=== PATIENT | male | born 1975 | race Hispanic/Latino ===

== ENCOUNTER 2016-12-11 15:29 | Inpatient (IN) | payer MEDICAID ==
--- NOTE | 2016-12-11 15:53 | ED PDOC ---
Arrival/HPI - General Chief Complaint: Abdominal Pain Time Seen by Provider: 12/11/16 15:35 Historian: Patient, EMS - History of Present Illness Narrative History of Present Illness (Text): 12/11/16 16:31 Patient is a 41 yo male states that he has had abdominal pain "for two weeks" as well as "i've just been laying in bed for two weeks". He states that "I'm an alcoholic" but reports "I feel like st" although he has not more specific with his symptoms. Patient denies any chest pain or shortness of breath. States that he "gets up and takes a walk" and he denies any lightheadedness or dizziness. Denies dark or bloody stool. Reports "throwing up blue bile" "once in a while". Currently denies nausea. Time/Duration: > week Symptom Onset: Gradual Past Medical History - Infectious Disease Hx of Infectious Diseases: None - Gastrointestinal Hx Hemorrhoids: Yes - Psychiatric Hx Substance Use: No - Anesthesia Hx Anesthesia: No Family/Social History Family/Social History: Unknown Family HX Smoking Status: Light Smoker < 10 Cigarettes Daily Hx Alcohol Use: Yes Hx Substance Use: No Allergies/Home Meds Allergies/Adverse Reactions: Allergies No Known Allergies Allergy (Verified 10/16/16 10:36) Home Medications: Home Meds Medication Instructions Recorded Confirmed No Known Home Med 12/11/16 12/11/16 Review of Systems - Review of Systems Systems not reviewed;Unavailable: Intoxicated Constitutional: Fatigue. absent: Fevers Eyes: absent: Vision Changes Respiratory: absent: SOB Cardiovascular: absent: Chest Pain Gastrointestinal: Abdominal Pain, Nausea, Vomiting, Appetite Changes. absent: Constipation, Diarrhea, Hematochezia, Hematemesis Genitourinary Male: absent: Dysuria, Frequency Musculoskeletal: Myalgias. absent: Back Pain Skin: absent: Rash Neurological: Dizziness. absent: Headache, Focal Weakness Endocrine: absent: Polyuria Hemo/Lymphatic: absent: Easy Bleeding Psychiatric: absent: Depression, Suicidal Ideation Physical Exam - Physical Exam Narrative Physical Exam (Text): Head: Atraumatic. Normocephalic. Eyes: PERRL. EOMI. Conjunctivae are not pale. ENT: Mucous membranes are moist and intact. Oropharynx is clear and symmetric. Neck: Supple. Full ROM. No JVD. No lymphadenopathy. Cardiovascular: Regular rate. Regular rhythm. Systolic murmur. Pulmonary/Chest: No evidence of respiratory distress. Clear to auscultation bilaterally. No wheezing, rales or rhonchi. Abdominal: Hepatomegaly. Diffuse upper abdominal discomfort, no rebound or guarding. Rectal: patient refused, denies gross blood Back: No CVA tenderness. Extremities: No edema. No cyanosis. No clubbing. Full range of motion in all extremities. No calf tenderness. Skin: Skin is warm and dry. No petechiae. No purpura. Neurological: Alert, awake, and oriented to person, place, time, and situation. No facial droop. Mild slurred speech. NO focal weakness. NO gait instability. Hyperreflexive and tremulous on re-evaluation. Psychiatric: He denies hallucinations. He denies depression or suicidal ideation. Vital Signs Reviewed: Yes Vital Signs Temp Pulse Resp BP Pulse Ox 12/11/16 20:20 87 17 145/81 98 12/11/16 18:50 86 18 146/82 98 12/11/16 16:24 99 H 18 148/96 H 98 12/11/16 15:38 98.3 F 108 H 18 154/104 H 98 Temperature: Afebrile Pulse: Regular Mental Status: Positive for: other (appears intoxicated but is alert and oriented) Medical Decision Making ED Course and Treatment: 12/11/16 22:46 Patient is a 41 yo male past medical history of alcohol abuse, states he has had prior AA involvement as well as rehab visits. He reports abdominal pain and is noted to have diffuse tenderness but no rebound or guarding. Rectal refused by patient, risks discussed, although patient is noted to have no bloody stool currently. Patient given iv fluids, serial exams reveal persistent pain ct ordered and reviewed. Labs suggestive of pancreatitis, ct possible colitis. He is afebrile. With serial exams he has become shaky and tremulous. Librium ordered and will admit to telemetry for alcohol withdrawal serial abdominal exams. Patient currently denies any suicidal or homicidal ideation. No vomiting noted in ED, no hematemesis. no chest pain or sob. Will admit to hospitalist service, case d/w Dr Hood accepts for hospitalist. - Lab Interpretations Lab Results: 12/11/16 16:36 12/11/16 16:36 Lab Results 12/11/16 16:48: POC Glucose (mg/dL) 99 12/11/16 16:36: WBC 4.6, RBC 4.11, Hgb 13.8 L, Hct 39.1 L, MCV 95.1, MCH 33.6, MCHC 35.3, RDW 13.1, Plt Count 249, MPV 8.5, Gran % 36.3 L, Lymph % (Auto) 45.3 H, [facility] % (Auto) 14.1 H, Eos % (Auto) 2.8, Baso % (Auto) 1.5, Gran # 1.67, Lymph # 2.1, [facility] # 0.7 H, Eos # 0.1, Baso # 0.07, PT 10.7, INR 0.99, APTT 26.3 , Sodium 149 H, Potassium 3.3 L, Chloride 102, Carbon Dioxide 28, Anion Gap 22 H , BUN 7, Creatinine 0.6, Est GFR ( Amer) > 60, Est GFR (Non-Af Amer) > 60 , Random Glucose 98, Calcium 8.9, Magnesium 1.7, Total Bilirubin 0.5, AST 69 H, ALT 48, Alkaline Phosphatase 82, Lactate Dehydrogenase 572, Total Creatine Kinase 111, Troponin I < 0.01, NT-Pro-B Natriuret Pep 39.1, Total Protein 7.5, Albumin 4.1, Globulin 3.4, Albumin/Globulin Ratio 1.2, Amylase 246 H, Lipase 563 H, Urine Color Yellow, Urine Appearance Clear, Urine pH 6.5, Ur Specific [place] <= 1.005, Urine Protein Negative, Urine Glucose (UA) Negative, Urine Ketones Negative, Urine Blood Negative, Urine Nitrate Negative, Urine Bilirubin Negative, Urine Urobilinogen 0.2, Ur Leukocyte Esterase Negative, Salicylates < 1 L, Urine Opiates Screen Negative, Urine Methadone Screen Negative, Acetaminophen < 10.0 L, Ur Barbiturates Screen Negative, Ur Phencyclidine Scrn Negative, Ur Amphetamines Screen Negative, U Benzodiazepines Scrn Negative, U Oth Cocaine Metabols Negative, U Cannabinoids Screen Negative, Alcohol, Quantitative 426 H* I have reviewed the lab results: Yes - RAD Interpretation Radiology Orders: 12/11/16 16:29 CHEST PORTABLE [RAD] Stat 12/11/16 20:04 ABD & PELVIS W/O PO OR IV CONT [CT] Stat Clinical Application Manager: Radiologist - EKG Interpretation Interpreted by ED Physician: Yes Type: 12 lead EKG - Medication Orders Current Medication Orders: Chlordiazepoxide (Librium) 25 mg PO Q8 PAIGE PRN Reason: Protocol Last Admin: 12/14/16 06:04 Dose: 25 MG Behavioural Document 12/14/16 06:04 KTR (Rec: 12/14/16 06:04 KTR [facility] [place]-2RS-[id number]) Maintenance Maintenance Dose Yes Nonmedicinal Nonmedicinal Interventions Activity Give food/fluids Behavior Behavior for Medication: Anxiety Continuous pacing/restlessness Re-Assess: Reassess Psych Meds Document 12/14/16 07:04 SPA (Rec: 12/14/16 08:50 SPA [facility] [place]-[id number]) Reassess Psych Med Effective Enoxaparin Sodium (Lovenox) 40 mg SC DAILY [facility] PRN Reason: Protocol Last Admin: 12/14/16 09:01 Dose: Not Given Non-Admin Reason: Patient Refused Folic Acid (Folic Acid) 1 mg PO DAILY [facility] Last Admin: 12/14/16 08:57 Dose: 1 MG Lorazepam (Ativan) 2 mg IVP Q3 PRN; Protocol PRN Reason: Agitation Last Admin: 12/13/16 23:21 Dose: 2 MG Behavioural Document 12/13/16 23:21 KTR (Rec: 12/13/16 23:21 KTR [facility] [place]-03) Maintenance Maintenance Dose No Nonmedicinal Nonmedicinal Interventions Activity Behavior Behavior for Medication: Anxiety IVP Administration Document 12/13/16 23:21 KTR (Rec: 12/13/16 23:21 KTR [facility] [place]-03) Charges for Administration # of IVP Administrations 1 Re-Assess: Reassess Psych Meds Document 12/13/16 23:51 KTR (Rec: 12/14/16 04:[address]-03) Reassess Psych Med Effective Multivitamins (Thera Tab) 1 tab PO DAILY [facility] Last Admin: 12/14/16 08:57 Dose: 1 TAB Nicotine (Nicoderm Cq) 1 patch TD DAILY [facility] Last Admin: 12/14/16 08:56 Dose: 1 PATCH MAR Patch Placement/Removal Document 12/14/16 08:56 SPA (Rec: 12/14/16 08:56 SPA [facility] [place]-[id number]) Patch Removal Removal of previous patch done Yes Patch Placement Left, Right or Bilateral Left Pain Location Body Site Shoulder Ondansetron HCl (Zofran Inj) 4 mg IVP Q4H PRN PRN Reason: Nausea/Vomiting Last Admin: 12/12/16 07:08 Dose: 4 MG IVP Administration Document 12/12/16 07:08 AP (Rec: 12/12/16 07:08 AP [id number]) Charges for Administration # of IVP Administrations 1 Pantoprazole Sodium (Protonix Ec Tab) 40 mg PO 0630 [facility] Last Admin: 12/14/16 06:04 Dose: 40 MG Thiamine HCl (Vitamin B1 Tab) 100 mg PO DAILY PAIGE Last Admin: 12/14/16 08:57 Dose: 100 MG Discontinued Medications Chlordiazepoxide (Librium) 50 mg PO STAT STA PRN Reason: Protocol Stop: 12/11/16 17:05 Last Admin: 12/11/16 17:54 Dose: 50 MG Behavioural Document 12/11/16 17:54 HI (Rec: 12/11/16 17:54 HI [id number]) Maintenance Maintenance Dose No Nonmedicinal Nonmedicinal Interventions Redirect Therapeutic Communication Behavior Behavior for Medication: Anxiety Chlordiazepoxide (Librium) 50 mg PO STAT STA PRN Reason: Protocol Stop: 12/11/16 21:50 Last Admin: 12/11/16 22:32 Dose: 50 MG Behavioural Document 12/11/16 22:32 HI (Rec: 12/11/16 22:32 HI [id number]) Maintenance Maintenance Dose Yes Nonmedicinal Nonmedicinal Interventions Therapeutic Communication Behavior Behavior for Medication: Anxiety Re-Assess: Reassess Psych Meds Document 12/12/16 00:47 AP (Rec: 12/12/16 00:47 AP [id number]) Reassess Psych Med Effective Chlordiazepoxide (Librium) 50 mg PO Q8 PAIGE PRN Reason: Protocol Last Admin: 12/13/16 13:23 Dose: 50 MG Behavioural Document 12/13/16 13:23 SPA (Rec: 12/13/16 13:23 SPA [id number]) Maintenance Maintenance Dose No Nonmedicinal Nonmedicinal Interventions Therapeutic Communication Behavior Behavior for Medication: Anxiety Re-Assess: Reassess Psych Meds Document 12/13/16 14:23 SPA (Rec: 12/13/16 15:00 [id number] Reassess Psych Med Effective Famotidine (Pepcid) 20 mg IVP STAT STA Stop: 12/11/16 16:31 Last Admin: 12/11/16 16:53 Dose: 20 MG IVP Administration Document 12/11/16 16:53 SF (Rec: 12/11/16 16:53 [facility] [place] [facility] Charges for Administration # of IVP Administrations 1 Sodium Chloride (Sodium Chloride 0.9%) 1,000 mls @ 1,000 mls/hr IV .Q1H STA Stop: 12/11/16 17:29 Last Admin: 12/11/16 16:43 Dose: 1,000 MLS/HR eMAR Start Stop Document 12/11/16 16:43 SF (Rec: 12/11/16 16:53 [facility] Intravenous Solution Start Date 12/11/16 Start Time 16:43 End Date 12/11/16 End time 17:43 Total Infusion Time 60 Multivitamins/Vitamin C 10 ml/Thiamine HCl 100 mg/ Folic Acid 1 mg/ Sodium Chloride 1,011.2 mls @ 1,000 mls/hr IV .Q1H1M ONE Stop: 12/11/16 21:26 Last Admin: 12/11/16 21:38 Dose: 1,000 MLS/HR eMAR Start Stop Document 12/11/16 21:38 SF (Rec: 12/11/16 21:39 SF [facility] Intravenous Solution Start Date 12/11/16 Start Time 21:35 End Date 12/11/16 End time 22:35 Total Infusion Time 60 Metronidazole (Flagyl) 100 mls @ 100 mls/hr IVPB Q8 PAIGE PRN Reason: Protocol Last Admin: 12/13/16 13:21 Dose: 100 MLS/HR eMAR Start Stop Document 12/13/16 13:21 SPA (Rec: 12/13/16 13:22 SPA [id number]) Intravenous Solution Start Date 12/13/16 Start Time 13:22 End Date 12/13/16 End time 14:22 Total Infusion Time 60 Multivitamins/Vitamin C 10 ml/Thiamine HCl 100 mg/ Folic Acid 1 mg/ Potassium Chloride 40 meq/ Sodium Chloride 1,031.2 mls @ 1,000 mls/hr IV .Q1H2M ONE Stop: 12/12/16 11:27 Multivitamins/Vitamin C 10 ml/Thiamine HCl 100 mg/ Folic Acid 1 mg/ Potassium Chloride 40 meq/ Sodium Chloride 1,031.2 mls @ 100 mls/hr IV .[id number] ONE Stop: 12/12/16 20:44 Last Admin: 12/12/16 12:21 Dose: 100 MLS/HR eMAR Start Stop Document 12/12/16 12:21 JZA (Rec: 12/12/16 12:22 JZA [id number]) Intravenous Solution Start Date 12/12/16 Start Time 12:21 Ceftriaxone Sodium (Rocephin 1 Gram Ivpb) 100 mls @ 100 mls/hr IVPB DAILY [facility]IGE PRN Reason: Protocol Last Admin: 12/13/16 09:36 Dose: 100 MLS/HR eMAR Start Stop Document 12/13/16 09:36 SPA (Rec: 12/13/16 09:36 SPA [id number]) Intravenous Solution Start Date 12/13/16 Start Time 09:36 End Date 12/13/16 End time 10:36 Total Infusion Time 60 Multivitamins/Vitamin C 10 ml/Thiamine HCl 100 mg/ Folic Acid 1 mg/ Sodium Chloride 1,011.2 mls @ 100 mls/hr IV .Q10H7M [facility] Last Admin: 12/13/16 10:59 Dose: 100 MLS/HR eMAR Start Stop Document 12/13/16 10:59 SPA (Rec: 12/13/16 10:59 SPA [id number]) Intravenous Solution Start Date 12/13/16 Start Time 10:59 Ibuprofen (Motrin Tab) 600 mg PO STAT STA Stop: 12/14/16 09:55 Last Admin: 12/14/16 10:10 Dose: 600 MG MAR Pain/Vitals Document 12/14/16 10:10 SPA (Rec: 12/14/16 10:11 SPA [facility] [place]-[id number]) Pain Reassessment Is This A Pain ReAssessment? No Sleep Is patient sleeping during reassessment? 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 Acute Intensity 6 Scale Used Numeric Site Observation wnl Pain Behavior Restlessness Lorazepam (Ativan) 2 mg IVP Q4 PRN; Protocol PRN Reason: Agitation Last Admin: 12/12/16 08:15 Dose: 2 MG Behavioural Document 12/12/16 08:15 JZA (Rec: 12/12/16 08:16 [place] [id number]) Maintenance Maintenance Dose Yes Behavior Behavior for Medication: Anxiety IVP Administration Document 12/12/16 08:15 JZA (Rec: 12/12/16 08:16 [place] [id number]) Charges for Administration # of IVP Administrations 1 Re-Assess: Reassess Psych Meds Document 12/12/16 08:45 JZA (Rec: 12/12/16 10:12 [place] [id number]) Reassess Psych Med Effective Lorazepam (Ativan) 1 mg IVP ONCE ONE PRN Reason: Protocol Stop: 12/12/16 10:28 Last Admin: 12/12/16 10:34 Dose: 1 MG Behavioural Document 12/12/16 10:34 JZA (Rec: 12/12/16 10:34 [place] [id number]) Maintenance Maintenance Dose Yes Behavior Behavior for Medication: Dangers to self/others Behavior Comment vomit tremors IVP Administration Document 12/12/16 10:34 JZA (Rec: 12/12/16 10:34 [place] [id number]) Charges for Administration # of IVP Administrations 1 Re-Assess: Reassess Psych Meds Document 12/12/16 11:04 JZA (Rec: 12/12/16 12:22 [place] [id number]) Reassess Psych Med Effective Nicotine (Nicoderm Cq) 1 patch TD STAT STA Stop: 12/12/16 00:37 Last Admin: 12/12/16 00:44 Dose: 1 PATCH MAR Transdermal Patch Site Document 12/12/16 00:44 AP (Rec: 12/12/16 00:44 AP [id number]) Transdermal Patch Site Transdermal Patch Site Left Outer Upper Arm Ondansetron HCl (Zofran Inj) 4 mg IVP ONCE ONE Stop: 12/12/16 10:28 Last Admin: 12/12/16 10:35 Dose: 4 MG IVP Administration Document 12/12/16 10:35 JZA (Rec: 12/12/16 10:35 [place] [id number]) Charges for Administration # of IVP Administrations 1 Potassium Chloride (K-Dur 20 Meq Er Tab) 40 meq PO STAT STA Stop: 12/11/16 17:47 Last Admin: 12/11/16 18:12 Dose: 40 MEQ Potassium Chloride (K-Dur 20 Meq Er Tab) 40 meq PO STAT STA Stop: 12/12/16 09:17 Last Admin: 12/12/16 10:17 Dose: 40 MEQ Potassium Chloride (Potassium Chloride Oral Soln) 40 meq PO ONCE ONE Stop: 12/13/16 15:53 Last Admin: 12/13/16 16:25 Dose: 40 MEQ Potassium Chloride (K-Dur 20 Meq Er Tab) 40 meq PO ONCE ONE Stop: 12/14/16 09:02 Last Admin: 12/14/16 09:25 Dose: 40 MEQ Disposition/Present on Arrival - Present on Arrival Any Indicators Present on Arrival: No History of DVT/PE: No History of Uncontrolled Diabetes: No Urinary Catheter: No History of Decub. Ulcer: No History Surgical Site Infection Following: None - Disposition Have Diagnosis and Disposition been Completed?: Yes Diagnosis: Alcohol withdrawal, Alcohol abuse, Pancreatitis, Colitis Disposition: HOSPITALIZED Disposition Time: 16:45 Patient Plan: Admission, Telemetry Patient Problems: Current Active Problems Problem Status Diagnosed Alcohol abuse Acute Alcohol withdrawal Acute Colitis Acute Pancreatitis Acute Condition: FAIR
[2016-12-11] MEDS ORDERED: Sodium Chloride 0.9% 1,000 ML IV STA (16:30)
[2016-12-11 16:50] LABS: ADD MANUAL DIFF? NO
[2016-12-11 17:00] LABS: BASO # 0.07 K/mm3 (0.0-2.0); BASO % 1.5 % (0.0-3.0); EOS # 0.1 (0.0-0.7); EOS % 2.8 % (1.5-5.0); GRAN # 1.67 (1.4-6.5); GRAN % 36.3 % (50.0-68.0); HEMATOCRIT 39.1 % (42.0-52.0); LYMPH # 2.1 (1.2-3.4); LYMPH % 45.3 % (22.0-35.0); MEAN CELL VOLUME 95.1 fL (80.0-105.0); MEAN CORPUSCULAR HEMOGLOBIN 33.6 pg (25.0-35.0); MEAN CORPUSCULAR HGB CONC 35.3 g/dl (31.0-37.0); MEAN PLATELET VOLUME 8.5 fl (7.0-11.0); MONO # 0.7 (0.1-0.6); MONO % 14.1 % (1.0-6.0); PH,URINE 6.5 (4.7-8.0); PLATELET COUNT 249 10^3/uL (120.0-450.0); RED CELL DISTRIBUTION WIDTH 13.1 % (11.5-14.5); URINE BILIRUBIN NEGATIVE (NEGATIVE); URINE BLOOD NEGATIVE (NEGATIVE); URINE GLUCOSE (UA) NEGATIVE (NEGATIVE); URINE KETONE NEGATIVE (NEGATIVE); URINE LEUKOCYTE ESTERASE NEGATIVE Leu/uL (NEGATIVE); URINE PROTEIN NEGATIVE mg/dL (<30 mg/dL); URINE UROBILINOGEN 0.2 E.U./dL (<1 E.U./dL); WHITE BLOOD COUNT 4.6 10^3/ul (4.5-11.0)
[2016-12-11 17:01] LABS: URINE APPEARANCE CLEAR (CLEAR); URINE COLOR YELLOW (YELLOW)
[2016-12-11 17:06] LABS: ALB/GLOB RATIO 1.2 (1.1-1.8); ALKALINE PHOSPHATASE 82 U/L (38-133); ALT/SGPT 48 U/L (7-56); AMYLASE 246 U/L (35-125); AST/SGOT 69 U/L (15-59); BILIRUBIN,TOTAL 0.5 mg/dL (0.2-1.3); BLOOD UREA NITROGEN 7 mg/dL (7-21); CALCIUM 8.9 mg/dL (8.4-10.5); CARBON DIOXIDE 28 mmol/L (21-33); CHLORIDE 102 mmol/L (98-107); GFR AFRICAN-AMERICAN > 60; GLUCOSE,RANDOM 98 mg/dL (70-110); LIPASE 563 U/L (23-300); MAGNESIUM 1.7 mg/dL (1.7-2.2); POTASSIUM 3.3 mmol/L (3.6-5.0); SODIUM 149 mmol/L (132-148); TOTAL PROTEIN 7.5 g/dL (5.8-8.3)
[2016-12-11 17:09] LABS: INR 0.99 (0.93-1.08); PARTIAL THROMBOPLASTIN TIME 26.3 Seconds (23.7-30.8)
[2016-12-11 17:18] LABS: TROPONIN I < 0.01 ng/mL
[2016-12-11] MEDS ORDERED: Potassium Chloride 20 mEq ER Tab PO STA (17:46)
--- NOTE | 2016-12-11 18:31 | CARD ---
APPROVED REPORT EKG Measurement Heart [id number] MI [id number] <Conclusion> Normal sinus rhythm Septal infarct, age undetermined Abnormal ECG
[2016-12-11] MEDS ORDERED: Multivitamin (MVI) 10 ML, Thiamine 100 MG, Folic Acid 1 MG in Sodium Chloride 0.9% 1,00... IV ONE (20:26)
--- NOTE | 2016-12-11 21:49 | CP.PCM.HP ---
History of Present Illness - History of Present Illness History of Present Illness: PGY-[address] Hood Admission: Abdominal pain, ETOH withdrawal 41 years old male states that he has had abdominal pain "for two weeks" with 1 diaahrea and 1 vomit episode 2 weeks ago. He claimed that he is an alcoholic and recently signed out AMA from [facility] 2 weeks ago. Then he had 1 diarrhea episode non bloody, 1 vomit episode, bilous, felt general weakness, thus "i've just been laying in bed for two weeks". His abdominal pain started RLQ and now spread to diffuse all quadrants. The pain comes and goes, since he is drinking vodka constantly so he cannot recall the duration of pain or trigger events. Patient denies any chest pain or shortness of breath. States that he "gets up and takes a walk" Pt states that he had colonoscopy 2 weeks ago which showed internal hemorroid but he felt pain during defecation all the time. (+) blood streaks on tissue paper, occassiobal bright red blood in toilet but not occasssiobnally In the ED, T 98.3, HR 108, other vitals wnl. WBC nl. Hb 13.8/MCV 95. Na 149, K 3.3. Anion Gap 22. AST 60. Amylase 246/Lipase 563. Alcohol 426 - He received 50 librium, pepcid, 1 banana bag, Kdur, 1L NS bolus - CXR no active disease - EKG - NSR 97. QTc 421 - Abdomen/Pelvic CT showed R colitis, mild sigmoid constipation ROS - Denies any lightheadedness or dizziness. Denies dark or bloody stool. Reports "throwing up blue bile" "once in a while". Currently denies nausea. Last diarrhea 2 weeks ago PMH Hemorrhoids Alcoholics PSH None Sexual History Not currently sexually active. "straight" SH Active smoker Alcohol abuse 750cc vodha a day Last snort cocaine and other drugs > 1 month ago All NKDA Med None PMD - None. Present on Admission - Present on Admission Any Indicators Present on Admission: No Past Patient History - Infectious Disease Hx of Infectious Diseases: None - Past Social History Smoking Status: Light Smoker < 10 Cigarettes Daily - GASTROINTESTINAL Hx Hemorrhoids: Yes - PSYCHIATRIC Hx Substance Use: No - SURGICAL HISTORY Hx Surgeries: No - ANESTHESIA Hx Anesthesia: No Meds Allergies/Adverse Reactions: Allergies Allergy/AdvReac Type Severity Reaction Status Date / Time No Known Allergies Allergy Verified 10/16/16 10:36 Physical Exam - Constitutional Appears: No Acute Distress - Head Exam Head Exam: ATRAUMATIC, NORMOCEPHALIC - Eye Exam Eye Exam: EOMI, Normal appearance, PERRL Pupil Exam: NORMAL ACCOMODATION - ENT Exam ENT Exam: Mucous Membranes Moist - Neck Exam Neck exam: Positive for: Normal Inspection - Respiratory Exam Respiratory Exam: Clear to Auscultation Bilateral, NORMAL BREATHING PATTERN. absent: Rales, Rhonchi, Wheezes - Cardiovascular Exam Cardiovascular Exam: REGULAR RHYTHM, +S1, +S2. absent: Systolic Murmur - GI/Abdominal Exam GI & Abdominal Exam: Normal Bowel Sounds, Soft, Tenderness (RLQ, RUQ, LUQ). absent: Distended, Guarding, Rigid - Extremities Exam Extremities exam: Positive for: normal capillary refill, pedal pulses present. Negative for: calf tenderness, pedal edema Additional comments: no tongue faciculation, + hand tremor - Back Exam Back exam: absent: CVA tenderness (L), CVA tenderness (R) - Neurological Exam Neurological exam: Alert, Oriented x3 - Psychiatric Exam Psychiatric exam: Normal Affect, Normal Mood - Skin Skin Exam: Dry, Warm Results - Vital Signs Recent Vital Signs: Last Vital Signs Temp 98.3 F 12/11/16 15:38 Pulse 87 12/11/16 20:20 Resp 17 12/11/16 20:20 BP 145/81 12/11/16 20:20 Pulse Ox 98 12/11/16 20:20 - Labs Result Diagrams: 12/11/16 16:36 12/11/16 16:36 Labs: Laboratory Results - last 24 hr 12/11/16 16:36 WBC 4.6 RBC 4.11 Hgb 13.8 L Hct 39.1 L MCV 95.1 MCH 33.6 MCHC 35.3 RDW 13.1 Plt Count 249 MPV 8.5 Gran % 36.3 L Lymph % (Auto) 45.3 H [place] % (Auto) 14.1 H Eos % (Auto) 2.8 Baso % (Auto) 1.5 Gran # 1.67 Lymph # 2.1 [place] # 0.7 H Eos # 0.1 Baso # 0.07 PT 10.7 INR 0.99 APTT 26.3 Sodium 149 H Potassium 3.3 L Chloride 102 Carbon Dioxide 28 Anion Gap 22 H BUN 7 Creatinine 0.6 Est GFR ( Amer) > 60 Est GFR (Non-Af Amer) > 60 Random Glucose 98 Calcium 8.9 Magnesium 1.7 Total Bilirubin 0.5 AST 69 H ALT 48 Alkaline Phosphatase 82 Lactate Dehydrogenase 572 Total Creatine Kinase 111 Troponin I < 0.01 NT-Pro-B Natriuret Pep 39.1 Total Protein 7.5 Albumin 4.1 Globulin 3.4 Albumin/Globulin Ratio 1.2 Amylase 246 H Lipase 563 H Urine Color Yellow Urine Appearance Clear Urine pH 6.5 Ur Specific [place] <= 1.005 Urine Protein Negative Urine Glucose (UA) Negative Urine Ketones Negative Urine Blood Negative Urine Nitrate Negative Urine Bilirubin Negative Urine Urobilinogen 0.2 Ur Leukocyte Esterase Negative Salicylates < 1 L Urine Opiates Screen Negative Urine Methadone Screen Negative Acetaminophen < 10.0 L Ur Barbiturates Screen Negative Ur Phencyclidine Scrn Negative Ur Amphetamines Screen Negative U Benzodiazepines Scrn Negative U Oth Cocaine Metabols Negative U Cannabinoids Screen Negative Alcohol, Quantitative 426 H* Assessment & Plan - Assessment and Plan (Free Text) Plan: 41 years old male alcoholic states that he has had abdominal pain "for two weeks " with 1 bilous vomit and 1 diarrhea episode and general body weakness ETOH withdrawal - CIWA - Librium, ativan PRN - fall risk - never has seizure - expressed wish to rehab - Oral thiamine, folic, multivit Alcoholic ketoacidosis (AKA) - binge drinking and little or no nutritional intake - Maintain IV banana bag tonight Abdominal pain Diarrhea with recent health care facility stay - AKA vs Colitis - tolerating food - Colitis - C-diff antigen, toxin - flagyl IV Elevated lipase/amylase, r/o alcoholic pancreatitis - lipid panel Nomocytic Anemia at 13.8 - stable - Occult blood stool Active smoker - nicoderm Prophylaxis - protonix, Lovenox S/R/D/w Dr. Hood - Date & Time Date: 12/11/16 Time: 22:41
--- NOTE | 2016-12-11 22:24 | CT ---
EXAM: CT Abdomen and Pelvis Without Intravenous Contrast. CLINICAL HISTORY: 41 years old, male; Pain; Abdominal pain; Generalized; Additional info: Abdominal pain, pancreatitis TECHNIQUE: Axial computed tomography images of the abdomen and pelvis without intravenous contrast. This CT exam was performed using one or more of the following dose reduction techniques: automated exposure control, adjustment of the mA and/or kV according to patient size, and/or use of iterative reconstruction technique. Coronal and sagittal reformatted images were created and reviewed. EXAM DATE/TIME: 12/11/2016 8:04 PM COMPARISON: No relevant prior studies available. FINDINGS: The liver is decreased in attenuation consistent with fatty infiltration. The gallbladder, spleen, adrenals and pancreas appear grossly normal on this non-contrast study. Trace bilateral perinephric stranding. No hydronephrosis. No obstructing calculi. Scattered colonic diverticuli are noted. There is diffuse wall thickening of the ascending, transverse, descending colon that is likely partially secondary to under distention, however there is also some associated haziness especially in the right colon suggestive of superimposed infectious/inflammatory process. Moderate amount stool within the sigmoid and rectum. The appendix is identified on coronal images 43 through 60 and axial images 122 through 146. There is a dense intraluminal material likely residual contrast from prior study. Measures 6 mm which is the upper limits of normal. No periappendiceal inflammation. Small shotty periaortic lymph nodes are noted. IMPRESSION: Findings supportive of colitis more notably on the right. Mild sigmoid constipation.
[2016-12-12] MEDS: metroNIDAZOLE IV 500 mg/100 ml 100 ML IVPB SCH ×4 (00:14→22:09)
[2016-12-12 00:41] VITALS: BMI 23.0
[2016-12-12] MEDS: Pantoprazole 40 mg EC Tab PO SCH (05:53)
[2016-12-12 06:49] LABS: ADD MANUAL DIFF? NO
[2016-12-12 07:12] LABS: BASO # 0.07 K/mm3 (0.0-2.0); BASO % 1.3 % (0.0-3.0); EOS # 0.1 (0.0-0.7); EOS % 1.5 % (1.5-5.0); GRAN # 3.22 (1.4-6.5); GRAN % 58.8 % (50.0-68.0); HEMATOCRIT 33.8 % (42.0-52.0); LYMPH # 1.4 (1.2-3.4); LYMPH % 24.7 % (22.0-35.0); MEAN CELL VOLUME 95.2 fL (80.0-105.0); MEAN CORPUSCULAR HGB CONC 34.6 g/dl (31.0-37.0); MEAN PLATELET VOLUME 8.6 fl (7.0-11.0); MONO # 0.8 (0.1-0.6); MONO % 13.7 % (1.0-6.0); PLATELET COUNT 215 10^3/uL (120.0-450.0); RED CELL DISTRIBUTION WIDTH 13.1 % (11.5-14.5); WHITE BLOOD COUNT 5.5 10^3/ul (4.5-11.0)
[2016-12-12 07:14] LABS: ALB/GLOB RATIO 1.2 (1.1-1.8); ALKALINE PHOSPHATASE 62 U/L (38-133); ALT/SGPT 42 U/L (7-56); AST/SGOT 62 U/L (15-59); BILIRUBIN,TOTAL 0.7 mg/dL (0.2-1.3); BLOOD UREA NITROGEN 6 mg/dL (7-21); CALCIUM 8.4 mg/dL (8.4-10.5); CARBON DIOXIDE 26 mmol/L (21-33); CHLORIDE 99 mmol/L (98-107); CHOLESTEROL 184 mg/dL (130-200); GFR AFRICAN-AMERICAN > 60; GLUCOSE,RANDOM 83 mg/dL (70-110); SODIUM 138 mmol/L (132-148); TOTAL PROTEIN 6.7 g/dL (5.8-8.3)
--- NOTE | 2016-12-12 09:11 | RAD ---
HISTORY: generalized weakness COMPARISON: No prior. FINDINGS: LUNGS: The lungs are well inflated and clear. PLEURA: No significant pleural effusion identified, no pneumothorax apparent. CARDIOVASCULAR: Normal. OSSEOUS STRUCTURES: No significant abnormalities. VISUALIZED UPPER ABDOMEN: Normal. OTHER FINDINGS: None. IMPRESSION: No active pulmonary disease.
[2016-12-12] MEDS ORDERED: Potassium Chloride 20 mEq ER Tab PO STA (09:16)
--- NOTE | 2016-12-12 09:49 | CP.PCM.PN ---
Subjective - Date & Time of Evaluation Date of Evaluation: 12/12/16 Time of Evaluation: 09:40 - Subjective Subjective: 41M with pmh of alcohol abuse. Objective - Vital Signs/Intake and Output Vital Signs (last 24 hours): Temp Pulse Resp BP Pulse Ox 98.3 F 100 H 20 146/97 H 94 L 12/12/16 06:00 12/12/16 06:00 12/12/16 06:00 12/12/16 06:00 12/12/16 06:00 - Medications Medications: Current Medications Chlordiazepoxide (Librium) 50 mg PO Q8 [facility] PRN Reason: Protocol Last Admin: 12/12/16 05:53 Dose: 50 mg Enoxaparin Sodium (Lovenox) 40 mg SC DAILY [facility] PRN Reason: Protocol Folic Acid (Folic Acid) 1 mg PO DAILY [facility] Metronidazole (Flagyl) 100 mls @ 100 mls/hr IVPB Q8 [facility] PRN Reason: Protocol Last Admin: 12/12/16 05:53 Dose: 100 mls/hr Lorazepam (Ativan) 2 mg IVP Q4 PRN; Protocol PRN Reason: Agitation Last Admin: 12/12/16 08:15 Dose: 2 mg Multivitamins (Thera Tab) 1 tab PO DAILY [facility] Nicotine (Nicoderm Cq) 1 patch TD DAILY [facility] Ondansetron HCl (Zofran Inj) 4 mg IVP Q4H PRN PRN Reason: Nausea/Vomiting Last Admin: 12/12/16 07:08 Dose: 4 mg Pantoprazole Sodium (Protonix Ec Tab) 40 mg PO 0630 [facility] Last Admin: 12/12/16 05:53 Dose: 40 mg Thiamine HCl (Vitamin B1 Tab) 100 mg PO DAILY [facility] - Labs Labs: 12/12/16 06:15 12/12/16 06:15 PT 10.7 Seconds (9.9-11.8) 12/11/16 16:36 INR 0.99 (0.93-1.08) 12/11/16 16:36 APTT 26.3 Seconds (23.7-30.8) 12/11/16 16:36
[2016-12-12] MEDS: Enoxaparin 40 mg Syringe SC SCH (10:16)
[2016-12-12] MEDS: Multivitamin Therapeutic Tab PO SCH (10:17)
[2016-12-12] MEDS ORDERED: Multivitamin (MVI) 10 ML, Thiamine 100 MG, Folic Acid 1 MG, Potassium Chloride 40 MEQ i... IV ONE ×2 (10:26→12:20)
[2016-12-12] MEDS ORDERED: Multivitamin (MVI) 10 ML, Thiamine 100 MG, Folic Acid 1 MG in Sodium Chloride 0.9% 1,00... IV ONE (12:15)
--- NOTE | 2016-12-12 13:35 | CP.PCM.PN ---
Subjective - Date & Time of Evaluation Date of Evaluation: 12/12/16 Time of Evaluation: 09:00 - Subjective Subjective: Patient seen and examined with resident. Patient is alert, awake and oriented. complaining of withdrawal symptoms. Denies abdominal pain. Denies any nausea, vomiting. denies any chest pain, shortness of breath. Review of Systems - Constitutional Constitutional: absent: Fever, Weakness - EENT Eyes: absent: Blurred Vision Nose/Mouth/Throat: absent: Nasal Congestion - Cardiovascular Cardiovascular: absent: Chest Pain, Chest Pain at Rest - Respiratory Respiratory: absent: Cough, Dyspnea, Dyspnea on Exertion - Gastrointestinal Gastrointestinal: absent: Abdominal Pain - Neurological Neurological: absent: Abnormal Gait Additional comments: tremors - Psychiatric Psychiatric: absent: Anxiety, Depression - Hematologic/Lymphatic Hematologic: absent: Easy Bleeding, Easy Bruising Objective - Vital Signs/Intake and Output Vital Signs (last 24 hours): Temp Pulse Resp BP Pulse Ox 98.8 F 100 H 20 137/92 H 94 L 12/12/16 12:00 12/12/16 12:00 12/12/16 12:00 12/12/16 12:00 12/12/16 06:00 - Medications Medications: Current Medications Chlordiazepoxide (Librium) 50 mg PO Q8 [facility] PRN Reason: Protocol Last Admin: 12/12/16 05:53 Dose: 50 mg Enoxaparin Sodium (Lovenox) 40 mg SC DAILY [facility] PRN Reason: Protocol Last Admin: 12/12/16 10:16 Dose: 40 mg Folic Acid (Folic Acid) 1 mg PO DAILY [facility] Last Admin: 12/12/16 10:17 Dose: 1 mg Metronidazole (Flagyl) 100 mls @ 100 mls/hr IVPB Q8 [facility] PRN Reason: Protocol Last Admin: 12/12/16 05:53 Dose: 100 mls/hr Multivitamins/Vitamin C 10 ml/Thiamine HCl 100 mg/ Folic Acid 1 mg/ Potassium Chloride 40 meq/ Sodium Chloride 1,031.2 mls @ 100 mls/hr IV .[id number] ONE Stop: 12/12/16 20:44 Last Admin: 12/12/16 12:21 Dose: 100 mls/hr Lorazepam (Ativan) 2 mg IVP Q3 PRN; Protocol PRN Reason: Agitation Multivitamins (Thera Tab) 1 tab PO DAILY [facility] Last Admin: 12/12/16 10:17 Dose: 1 tab Nicotine (Nicoderm Cq) 1 patch TD DAILY [facility] Last Admin: 12/12/16 10:16 Dose: 1 patch Ondansetron HCl (Zofran Inj) 4 mg IVP Q4H PRN PRN Reason: Nausea/Vomiting Last Admin: 12/12/16 07:08 Dose: 4 mg Pantoprazole Sodium (Protonix Ec Tab) 40 mg PO 0630 [facility] Last Admin: 12/12/16 05:53 Dose: 40 mg Thiamine HCl (Vitamin B1 Tab) 100 mg PO DAILY [facility] Last Admin: 12/12/16 10:25 Dose: 100 mg - Labs Labs: 12/12/16 06:15 12/12/16 06:15 PT 10.7 Seconds (9.9-11.8) 12/11/16 16:36 INR 0.99 (0.93-1.08) 12/11/16 16:36 APTT 26.3 Seconds (23.7-30.8) 12/11/16 16:36 - Constitutional Appears: Well, Non-toxic - Head Exam Head Exam: NORMAL INSPECTION - Eye Exam Eye Exam: Normal appearance - ENT Exam ENT Exam: Mucous Membranes Moist - Respiratory Exam Respiratory Exam: Clear to Ausculation Bilateral, NORMAL BREATHING PATTERN - Cardiovascular Exam Cardiovascular Exam: REGULAR RHYTHM - GI/Abdominal Exam GI & Abdominal Exam: Soft, Normal Bowel Sounds. absent: Tenderness - Extremities Exam Extremities Exam: absent: Pedal Edema - Back Exam Back Exam: absent: CVA tenderness (L), CVA tenderness (R) - Neurological Exam Neurological Exam: Alert Additional comments: tremors - Psychiatric Exam Psychiatric exam: Flat Affect - Skin Skin Exam: Normal Color Assessment and Plan - Assessment and Plan (Free Text) Assessment: 1.Patient is a 41-year-old male admitted with acute alcohol intoxication and abdominal discomfort. Continue CIWA protocol. fall precautions/seizure precautions/aspiration precautions. Continue IV Ativan and Librium. continue banana bag with multivitamin, thiamine, folic acid. 2. Mild pancreatitis;secondary to alcohol abuse. GI evaluation appreciated. 3. Episode of nausea and vomiting; continue Zofran. Keep patient nothing by mouth. Continue IV fluids. CT abdomen consistent with mild right-sided colitis. started on IV Rocephin and Flagyl. denies any diarrhea. 4.hypokalemia; Iv potassium supplemented. 5.GI prophylaxis with Protonix. 6. DVT prophylaxis with Lovenox. 7. Active smoking; smoking cessation is strongly advised. Started on NicoDerm patch. 8. Psychiatric evaluation requested. 9.chronic alcohol abuse; multiple rehabs at [facility]. he lives in [place]. home health care social worker evaluation requested for AA rehabilitation. on discharge patient will follow up with PMD in [facility].
[2016-12-12] MEDS ORDERED: metroNIDAZOLE IV 500 mg/100 ml 100 ML IVPB SCH (14:00)
--- NOTE | 2016-12-12 14:10 | CP.PCM.CON ---
History of Present Illness - History of Present Illness History of Present Illness: Asked by hospitalist team for a GI consultation on this patient Reason for hospitalization ETOH withdrawal HPI: This is a 41 year old male with h/o ETOH abuse who presents to hospital with complaint of weakness/anxiety/tremulousness. He reports that his last drink was yesterday morning, ETOH level on admission 400. He has suffered from ETOH withdrawal in the past. He reports drinking 750cc vodka/day. He reports that over the past several weeks he has been having intermittently loose stool. He has complained also of chronic intermittent rectal bleeding and underwent colonoscopy at [place] earlier this year reportedly showing hemorrhoids. He was referred for surgical management of hemorrhoids. He states that he has been having mild abdominal discomfort, periumbilical/right sided without associated nausea or vomiting. No dysphagia or odynophagia. No hematemesis PMhx/PSHx: as above Allergies: NKDA ROS: as per HPI otherwise negative in detail FH: denies FH of GI maligancy SH: +ETOH as above, denies IVDU, tobacco Review of Systems - Constitutional Constitutional: Weakness. absent: Chills, Fever - Cardiovascular Cardiovascular: absent: Chest Pain - Respiratory Respiratory: absent: Cough, Dyspnea - Gastrointestinal Gastrointestinal: As Per HPI - Genitourinary Genitourinary: absent: Dysuria, Hematuria - Musculoskeletal Musculoskeletal: absent: Back Pain, Numbness - Neurological Neurological: absent: Weakness - Psychiatric Psychiatric: absent: Anxiety Past Patient History - Infectious Disease Hx of Infectious Diseases: None - Past Social History Smoking Status: Heavy Smoker > 10 Cigarettes Daily - CARDIAC Hx Cardiac Disorders: No - PULMONARY Hx Respiratory Disorders: No - NEUROLOGICAL Hx Neurological Disorder: No - HEENT Hx HEENT Problems: Yes (wears glasses) - RENAL Hx Chronic Kidney Disease: No - ENDOCRINE/METABOLIC Hx Endocrine Disorders: No - HEMATOLOGICAL/ONCOLOGICAL Hx Blood Disorders: No - INTEGUMENTARY Hx Dermatological Problems: No - MUSCULOSKELETAL/RHEUMATOLOGICAL Hx Musculoskeletal Disorders: No Hx Falls: No Hx Unsteady Gait: No - GASTROINTESTINAL Hx Gastrointestinal Disorders: Yes (Hemmroids) - GENITOURINARY/GYNECOLOGICAL Hx Genitourinary Disorders: No - PSYCHIATRIC Hx Psychophysiologic Disorder: No Hx Emotional Abuse: No Hx Physical Abuse: No Hx Sexual Abuse: No Hx Substance Use: Yes - SURGICAL HISTORY Hx Surgeries: No - ANESTHESIA Hx Anesthesia: No Meds Allergies/Adverse Reactions: Allergies Allergy/AdvReac Type Severity Reaction Status Date / Time No Known Allergies Allergy Verified 10/16/16 10:36 - Medications Medications: Current Medications Chlordiazepoxide (Librium) 50 mg PO Q8 [facility] PRN Reason: Protocol Last Admin: 12/12/16 13:56 Dose: Not Given Enoxaparin Sodium (Lovenox) 40 mg SC DAILY [facility] PRN Reason: Protocol Last Admin: 12/12/16 10:16 Dose: 40 mg Folic Acid (Folic Acid) 1 mg PO DAILY [facility] Last Admin: 12/12/16 10:17 Dose: 1 mg Metronidazole (Flagyl) 100 mls @ 100 mls/hr IVPB Q8 [facility] PRN Reason: Protocol Last Admin: 12/12/16 05:53 Dose: 100 mls/hr Multivitamins/Vitamin C 10 ml/Thiamine HCl 100 mg/ Folic Acid 1 mg/ Potassium Chloride 40 meq/ Sodium Chloride 1,031.2 mls @ 100 mls/hr IV .[id number] ONE Stop: 12/12/16 20:44 Last Admin: 12/12/16 12:21 Dose: 100 mls/hr Ceftriaxone Sodium (Rocephin 1 Gram Ivpb) 100 mls @ 100 mls/hr IVPB DAILY [facility] PRN Reason: Protocol Lorazepam (Ativan) 2 mg IVP Q3 PRN; Protocol PRN Reason: Agitation Multivitamins (Thera Tab) 1 tab PO DAILY [facility] Last Admin: 12/12/16 10:17 Dose: 1 tab Nicotine (Nicoderm Cq) 1 patch TD DAILY [facility] Last Admin: 12/12/16 10:16 Dose: 1 patch Ondansetron HCl (Zofran Inj) 4 mg IVP Q4H PRN PRN Reason: Nausea/Vomiting Last Admin: 12/12/16 07:08 Dose: 4 mg Pantoprazole Sodium (Protonix Ec Tab) 40 mg PO 0630 [facility] Last Admin: 12/12/16 05:53 Dose: 40 mg Thiamine HCl (Vitamin B1 Tab) 100 mg PO DAILY [facility] Last Admin: 12/12/16 10:25 Dose: 100 mg Physical Exam - Constitutional Appears: No Acute Distress - Eye Exam Eye Exam: absent: Scleral icterus - ENT Exam Additional comments: +tongue fasciculations - Respiratory Exam Respiratory Exam: Clear to Auscultation Bilateral - Cardiovascular Exam Cardiovascular Exam: +S1, +S2 - GI/Abdominal Exam Additional comments: abdomen soft, non tender to palpation, no rebound or guarding, bowel sounds present, no palpable mass - Extremities Exam Extremities exam: Negative for: pedal edema - Neurological Exam Neurological exam: Alert, Oriented x3 - Skin Skin Exam: Dry Results - Vital Signs Recent Vital Signs: Last Vital Signs Temp 98.8 F 12/12/16 12:00 Pulse 100 H 12/12/16 12:00 Resp 20 12/12/16 12:00 BP 137/92 H 12/12/16 12:00 Pulse Ox 94 L 12/12/16 06:00 - Labs Result Diagrams: 12/12/16 06:15 12/12/16 06:15 Labs: Laboratory Results - last 24 hr 12/12/16 06:15 WBC 5.5 RBC 3.55 Hgb 11.7 L Hct 33.8 L MCV 95.2 MCH 33.0 MCHC 34.6 RDW 13.1 Plt Count 215 MPV 8.6 Gran % 58.8 Lymph % (Auto) 24.7 [place] % (Auto) 13.7 H Eos % (Auto) 1.5 Baso % (Auto) 1.3 Gran # 3.22 Lymph # 1.4 [place] # 0.8 H Eos # 0.1 Baso # 0.07 Sodium 138 Potassium 3.0 L Chloride 99 Carbon Dioxide 26 Anion Gap 16 BUN 6 L Creatinine 0.6 Est GFR ( Amer) > 60 Est GFR (Non-Af Amer) > 60 Random Glucose 83 Calcium 8.4 Total Bilirubin 0.7 AST 62 H ALT 42 Alkaline Phosphatase 62 Total Protein 6.7 Albumin 3.7 Globulin 3.0 Albumin/Globulin Ratio 1.2 Triglycerides 50 Cholesterol 184 LDL Cholesterol Direct 87 HDL Cholesterol 85 H Assessment & Plan - Assessment and Plan (Free Text) Assessment: This is a 41 year old male with h/o ETOH abuse who presents with complaint of generalized malaise, being treated with ETOH withdrawal. He has also complained of intermittent abdominal pain with occasionally loose stools. On labs, he is found to have chemical pancreatitis. CT scan without evidence of pancreatic abnormality, possible mild colitis. Plan: Continue supportive care ETOH withdrawal management as per primary medical service On ceftriaxone/flagyl for possible colitis Monitor LFTs Obtain stool studies Pain control, antiemetic therapy as needed
[2016-12-12] MEDS: cefTRIAXone 1 gm 100 ML IVPB SCH (14:22)
[2016-12-12] MEDS: Multivitamin (MVI) 10 ML, Thiamine 100 MG, Folic Acid 1 MG in Sodium Chloride 0.9% 1,00... IV SCH (23:27)
[2016-12-13] MEDS: metroNIDAZOLE IV 500 mg/100 ml 100 ML IVPB SCH ×2 (06:27→13:21)
[2016-12-13] MEDS: Pantoprazole 40 mg EC Tab PO SCH (06:39)
[2016-12-13 07:09] LABS: ADD MANUAL DIFF? NO
[2016-12-13 07:22] LABS: BASO # 0.03 K/mm3 (0.0-2.0); BASO % 0.6 % (0.0-3.0); EOS # 0.1 (0.0-0.7); EOS % 1.7 % (1.5-5.0); GRAN # 3.16 (1.4-6.5); GRAN % 59.2 % (50.0-68.0); HEMATOCRIT 35.6 % (42.0-52.0); LYMPH # 1.2 (1.2-3.4); LYMPH % 23.3 % (22.0-35.0); MEAN CELL VOLUME 94.7 fL (80.0-105.0); MEAN CORPUSCULAR HEMOGLOBIN 32.7 pg (25.0-35.0); MEAN CORPUSCULAR HGB CONC 34.6 g/dl (31.0-37.0); MONO # 0.8 (0.1-0.6); MONO % 15.2 % (1.0-6.0); PLATELET COUNT 183 10^3/uL (120.0-450.0); RED CELL DISTRIBUTION WIDTH 12.6 % (11.5-14.5); WHITE BLOOD COUNT 5.3 10^3/ul (4.5-11.0)
[2016-12-13 07:30] LABS: ALB/GLOB RATIO 1.2 (1.1-1.8); ALKALINE PHOSPHATASE 63 U/L (38-133); ALT/SGPT 33 U/L (7-56); AST/SGOT 47 U/L (15-59); BILIRUBIN,TOTAL 0.9 mg/dL (0.2-1.3); BLOOD UREA NITROGEN 5 mg/dL (7-21); CALCIUM 8.1 mg/dL (8.4-10.5); CARBON DIOXIDE 23 mmol/L (21-33); CHLORIDE 96 mmol/L (98-107); GFR AFRICAN-AMERICAN > 60; GLUCOSE,RANDOM 78 mg/dL (70-110); POTASSIUM 3.2 mmol/L (3.6-5.0); SODIUM 134 mmol/L (132-148); TOTAL PROTEIN 7.2 g/dL (5.8-8.3)
[2016-12-13] MEDS: Enoxaparin 40 mg Syringe SC SCH (09:35)
[2016-12-13] MEDS: cefTRIAXone 1 gm 100 ML IVPB SCH (09:36)
[2016-12-13] MEDS: Multivitamin Therapeutic Tab PO SCH (10:22)
--- NOTE | 2016-12-13 10:31 | CON ---
DATE: 12/13/2016 The patient is a 41-year-old male with a history of alcohol dependency who is being treated by the [facility] team for alcohol withdrawal and psychiatry was consulted to evaluate patient. I met with marysol velazquez at bedside and he is calm, cooperative, alert and well oriented to date, month, year, location and circumstances. The patient denies having any psychiatric symptoms at all, including depression, anx iety, hallucinations, delusions. However, does report a 5-year history of alcohol dependency. Speci fically, patient reports that he has been drinking for about 2 years, 750 mL of vodka daily and would like to pursue sobriety; however, finds it difficult this "second time around". The patient indicat es that he had been sober for 2-1/2 to 3 years until he relapsed 2 years ago. He is going to AA meet ings; however, has not ever attended detox or rehab and he is not interested in these types of interv entions. The patient is aware of the option of naltrexone and is open to the idea, but does not appe ar extremely motivated during my interview with him. He is coherent, logical, goal directed, in very good control. He is not delusional. He is not responding to internal stimuli and while he has good insight, his judgment is fair. The patient has generally been in control on the unit and denies any current distress and presents as a fairly reliable historian. PSYCHIATRIC HISTORY: The patient denies any history of psychiatric followup, psychiatric meds, suici de attempts or inpatient treatment for psychiatric symptoms. SOCIAL HISTORY: The patient was born in [place] and raised in [place]. The patient is single. He has no children. The patient resides in his own apartment in [place]. However, he also has an apartment in [place]. 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 The patient denies any issues with drug use. However, does report alcohol dependency first noted by him about 5 years ago. Reports a period of sobriety for 2-1/2 to 3 years; however, relapsed 2 years ago and he is currently drinking 700 mL of vodka daily. The patient denies any history of withdrawal seizures or DTs or hallucinations assoc iated with alcohol use. Regarding his legal history, he does have a DUI from "a long time ago". VITAL SIGNS: 98.4, 110, 128/72 and 22 at 6 a.m. this morning. LABORATORIES: Reviewed and CBC this morning showed hemoglobin and hematocrit of 12.3 and 35.6, mildl y decreased. Chemistry profile this morning showed potassium 3.2, which is low, 96 chloride low, BUN of 5 which is low, 8.1 of calcium which is low. LFTs are within normal limits, though mildly elevat ed AST of 69 and 62 on 12/11 and 12/12 respectively. Amylase and lipase came back elevated on 12/11 at 246 and 563. His BAL at presentation on 12/11/2016 was 426. IMPRESSION: Alcohol use disorder, severe. RECOMMENDATIONS 1. At this time, we recommend that patient obtain social work services regarding possible dispositio n for his alcohol dependency. He is not interested in psychiatric management as he does not have any psychiatric symptoms at this time. Does not appear to be interested in rehabilitation, however, he might benefit from counseling in this respect. Regardless, I do recommend the medical team start nal trexone for him as he is willing to try this medication and recommend appropriate followup for his perez bstance use so that he can continue this medication and got appropriate counseling and support in alex ntaining abstinence. Psychiatry will sign off at this time as there are no acute psychiatric issues. Please feel free to reconsult if any acute psychiatric management issues or symptoms occur. As of now, please just manage patient's alcohol dependency with appropriate referrals and medication manage ment. Again, please provide patient naltrexone if he is mentally stable to this medication as he is willing to start this medication for his alcohol dependency. Paresh Whyte MD cc: [id number] TT: 12/13/2016 10:30:46 Confirmation # [id number] Dictation # [id number] en
[2016-12-13] MEDS: Multivitamin (MVI) 10 ML, Thiamine 100 MG, Folic Acid 1 MG in Sodium Chloride 0.9% 1,00... IV SCH (10:59)
--- NOTE | 2016-12-13 13:12 | CP.PCM.PN ---
<Braden Stallworth - Last Filed: 12/13/16 13:09> Subjective - Date & Time of Evaluation Date of Evaluation: 12/13/16 Time of Evaluation: 07:10 - Subjective Subjective: PGY4 GI Fellow Progress Note Patient seen and examined bedside this morning. The patient denies any new complaints at this time. Remains tremulous per patient. Hungry and eager to eat. 12 system ROS performed and negative except where stated. Objective - Vital Signs/Intake and Output Vital Signs (last 24 hours): Temp Pulse Resp BP Pulse Ox 98.4 F 88 22 128/72 99 12/13/16 06:00 12/13/16 10:00 12/13/16 06:00 12/13/16 06:00 12/13/16 06:00 Intake and Output: 12/13/16 12/13/16 06:59 18:59 Intake Total 0 1200 Output Total 1175 Balance -1175 1200 - Medications Medications: Current Medications Chlordiazepoxide (Librium) 50 mg PO Q8 [facility] PRN Reason: Protocol Last Admin: 12/13/16 06:39 Dose: Not Given Enoxaparin Sodium (Lovenox) 40 mg SC DAILY [facility] PRN Reason: Protocol Last Admin: 12/13/16 09:35 Dose: 40 mg Folic Acid (Folic Acid) 1 mg PO DAILY [facility] Last Admin: 12/13/16 10:22 Dose: 1 mg Metronidazole (Flagyl) 100 mls @ 100 mls/hr IVPB Q8 [facility] PRN Reason: Protocol Last Admin: 12/13/16 06:27 Dose: 100 mls/hr Ceftriaxone Sodium (Rocephin 1 Gram Ivpb) 100 mls @ 100 mls/hr IVPB DAILY [facility] PRN Reason: Protocol Last Admin: 12/13/16 09:36 Dose: 100 mls/hr Multivitamins/Vitamin C 10 ml/Thiamine HCl 100 mg/ Folic Acid 1 mg/ Sodium Chloride 1,011.2 mls @ 100 mls/hr IV .Q10H7M [facility] Last Admin: 12/13/16 10:59 Dose: 100 mls/hr Lorazepam (Ativan) 2 mg IVP Q3 PRN; Protocol PRN Reason: Agitation Last Admin: 12/13/16 11:35 Dose: 2 mg Multivitamins (Thera Tab) 1 tab PO DAILY [facility] Last Admin: 12/13/16 10:22 Dose: 1 tab Nicotine (Nicoderm Cq) 1 patch TD DAILY [facility] Last Admin: 12/13/16 09:35 Dose: 1 patch Ondansetron HCl (Zofran Inj) 4 mg IVP Q4H PRN PRN Reason: Nausea/Vomiting Last Admin: 12/12/16 07:08 Dose: 4 mg Pantoprazole Sodium (Protonix Ec Tab) 40 mg PO 0630 [facility] Last Admin: 12/13/16 06:39 Dose: Not Given Thiamine HCl (Vitamin B1 Tab) 100 mg PO DAILY [facility] Last Admin: 12/13/16 10:22 Dose: 100 mg - Labs Labs: 12/13/16 06:40 12/13/16 06:40 PT 10.7 Seconds (9.9-11.8) 12/11/16 16:36 INR 0.99 (0.93-1.08) 12/11/16 16:36 APTT 26.3 Seconds (23.7-30.8) 12/11/16 16:36 - Constitutional Appears: Non-toxic, No Acute Distress - Eye Exam Eye Exam: EOMI, PERRL - ENT Exam ENT Exam: Mucous Membranes Moist - Respiratory Exam Respiratory Exam: Clear to Ausculation Bilateral. absent: Rales, Rhonchi, Wheezes - Cardiovascular Exam Cardiovascular Exam: RRR, +S1, +S2 - GI/Abdominal Exam GI & Abdominal Exam: Soft, Normal Bowel Sounds. absent: Distended, Firm, Guarding, Rigid, Tenderness, Organomegaly - Extremities Exam Extremities Exam: Normal Inspection. absent: Pedal Edema - Neurological Exam Neurological Exam: Alert, Awake, Oriented x3 Additional comments: tremulous - Psychiatric Exam Psychiatric exam: Normal Affect, Normal Mood - Skin Skin Exam: Dry, Warm Assessment and Plan - Assessment and Plan (Free Text) Assessment: Patient is a 41yo male with PMHx significant for ETOH abuse who presented with complaint of generalized malaise, abdominal pain and is being treated with ETOH withdrawal. -Acute EtOH induced pancreatitis -Alcohol abuse, withdrawal Plan: -Advance to clear liquid diet -Supportive care -EtOH withdrawal management per primary service -Would discontinue antibiotics as patient does not have true evidence of infection -Stool studies uncollected in absence of diarrhea -Pain control, antiemetic therapy as needed <Ophelia Mares - Last Filed: 12/13/16 14:18> Objective - Vital Signs/Intake and Output Vital Signs (last 24 hours): Temp Pulse Resp BP Pulse Ox 98.1 F 122 H 20 145/99 H 99 12/13/16 12:00 12/13/16 13:33 12/13/16 12:00 12/13/16 12:00 12/13/16 06:00 Intake and Output: 12/13/16 12/13/16 06:59 18:59 Intake Total 0 1200 Output Total 1175 Balance -1175 1200 - Medications Medications: Current Medications Chlordiazepoxide (Librium) 50 mg PO Q8 [facility] PRN Reason: Protocol Last Admin: 12/13/16 13:23 Dose: 50 mg Enoxaparin Sodium (Lovenox) 40 mg SC DAILY [facility] PRN Reason: Protocol Last Admin: 12/13/16 09:35 Dose: 40 mg Folic Acid (Folic Acid) 1 mg PO DAILY [facility] Last Admin: 12/13/16 10:22 Dose: 1 mg Multivitamins/Vitamin C 10 ml/Thiamine HCl 100 mg/ Folic Acid 1 mg/ Sodium Chloride 1,011.2 mls @ 100 mls/hr IV .Q10H7M [facility] Last Admin: 12/13/16 10:59 Dose: 100 mls/hr Lorazepam (Ativan) 2 mg IVP Q3 PRN; Protocol PRN Reason: Agitation Last Admin: 12/13/16 11:35 Dose: 2 mg Multivitamins (Thera Tab) 1 tab PO DAILY [facility] Last Admin: 12/13/16 10:22 Dose: 1 tab Nicotine (Nicoderm Cq) 1 patch TD DAILY [facility] Last Admin: 12/13/16 09:35 Dose: 1 patch Ondansetron HCl (Zofran Inj) 4 mg IVP Q4H PRN PRN Reason: Nausea/Vomiting Last Admin: 12/12/16 07:08 Dose: 4 mg Pantoprazole Sodium (Protonix Ec Tab) 40 mg PO 0630 [facility] Last Admin: 12/13/16 06:39 Dose: Not Given Thiamine HCl (Vitamin B1 Tab) 100 mg PO DAILY [facility] Last Admin: 12/13/16 10:22 Dose: 100 mg - Labs Labs: 12/13/16 06:40 12/13/16 06:40 PT 10.7 Seconds (9.9-11.8) 12/11/16 16:36 INR 0.99 (0.93-1.08) 12/11/16 16:36 APTT 26.3 Seconds (23.7-30.8) 12/11/16 16:36 Attending/Attestation - Attestation I have personally seen and examined this patient.: Yes I have fully participated in the care of the patient.: Yes I have reviewed all pertinent clinical information, including history, physical exam and plan: Yes Notes (Text): Patient seen and examined with GI fellow. Agree with his note as documented above with the following additions/exceptions. This is a 41 year old male with h/o ETOH abuse who presents with complaint of generalized malaise, being treated with ETOH withdrawal. He has chemical pancreatitis. He denies any abdominal pain. No episodes of diarrhea. Continue supportive care, ETOH withdrawal management as per primary medical team. Advance diet as tolerated. Please call with any further questions or concerns. 12/13/16 14:17
[2016-12-13] MEDS ORDERED: Potassium Chloride 40 mEq/30 ml LIQ UD PO ONE (15:52)
--- NOTE | 2016-12-13 18:47 | CP.PCM.PN ---
<Augustus Mercedes - Last Filed: 12/13/16 18:26> Subjective - Date & Time of Evaluation Date of Evaluation: 12/13/16 Time of Evaluation: 07:28 - Subjective Subjective: Medicine progress note. Dr. Helms Pt seen and examined at bedside. No acute events overnight. No F/C. No CP/SOB. Abd pain improving. No N/V/D. States that he feels a little anxious and tremulous. Objective - Vital Signs/Intake and Output Vital Signs (last 24 hours): Temp Pulse Resp BP Pulse Ox 98.1 F 113 H 20 145/99 H 99 12/13/16 12:00 12/13/16 17:44 12/13/16 12:00 12/13/16 12:00 12/13/16 06:00 Intake and Output: 12/13/16 12/13/16 06:59 18:59 Intake Total 0 1200 Output Total 1175 Balance -1175 1200 - Medications Medications: Current Medications Chlordiazepoxide (Librium) 25 mg PO Q8 PAIGE PRN Reason: Protocol Enoxaparin Sodium (Lovenox) 40 mg SC DAILY [facility] PRN Reason: Protocol Last Admin: 12/13/16 09:35 Dose: 40 mg Folic Acid (Folic Acid) 1 mg PO DAILY [facility] Last Admin: 12/13/16 10:22 Dose: 1 mg Multivitamins/Vitamin C 10 ml/Thiamine HCl 100 mg/ Folic Acid 1 mg/ Sodium Chloride 1,011.2 mls @ 100 mls/hr IV .Q10H7M [facility] Last Admin: 12/13/16 10:59 Dose: 100 mls/hr Lorazepam (Ativan) 2 mg IVP Q3 PRN; Protocol PRN Reason: Agitation Last Admin: 12/13/16 16:48 Dose: 2 mg Multivitamins (Thera Tab) 1 tab PO DAILY [facility] Last Admin: 12/13/16 10:22 Dose: 1 tab Nicotine (Nicoderm Cq) 1 patch TD DAILY [facility] Last Admin: 12/13/16 09:35 Dose: 1 patch Ondansetron HCl (Zofran Inj) 4 mg IVP Q4H PRN PRN Reason: Nausea/Vomiting Last Admin: 12/12/16 07:08 Dose: 4 mg Pantoprazole Sodium (Protonix Ec Tab) 40 mg PO 0630 [facility] Last Admin: 12/13/16 06:39 Dose: Not Given Thiamine HCl (Vitamin B1 Tab) 100 mg PO DAILY [facility] Last Admin: 12/13/16 10:22 Dose: 100 mg - Labs Labs: 12/13/16 06:40 12/13/16 06:40 PT 10.7 Seconds (9.9-11.8) 12/11/16 16:36 INR 0.99 (0.93-1.08) 12/11/16 16:36 APTT 26.3 Seconds (23.7-30.8) 12/11/16 16:36 - Constitutional Appears: Well, No Acute Distress - Head Exam Head Exam: ATRAUMATIC, NORMAL INSPECTION, NORMOCEPHALIC - Eye Exam Eye Exam: EOMI, Normal appearance, PERRL. absent: Scleral icterus Pupil Exam: PERRL - ENT Exam ENT Exam: Mucous Membranes Moist - Neck Exam Neck Exam: Full ROM - Respiratory Exam Respiratory Exam: Clear to Ausculation Bilateral, NORMAL BREATHING PATTERN. absent: Respiratory Distress - Cardiovascular Exam Cardiovascular Exam: RRR, +S1, +S2. absent: JVD - GI/Abdominal Exam GI & Abdominal Exam: Soft, Normal Bowel Sounds. absent: Tenderness - Extremities Exam Extremities Exam: Normal Inspection - Back Exam Back Exam: NORMAL INSPECTION - Neurological Exam Neurological Exam: Alert, Awake, Oriented x3 - Psychiatric Exam Psychiatric exam: Normal Affect, Normal Mood - Skin Skin Exam: Dry, Intact, Normal Color, Warm Assessment and Plan - Assessment and Plan (Free Text) Assessment: 41yo M with PMHx of ETOH abuse here for acute alcohol intoxication and abdominal discomfort. 1. Alcohol Intoxication still tremulous today, unsteady gait CIWA protocol Seizure precaution Fall Precaution Aspiration precaution Taper Librium Ativan prn Banana bag Chronic ETOH use. Multiple failed rehabs. Psych consult appreciated 2. Pancreatitis secondary to above GI eval appreciated Continue IVF Advance diet as tolerated Zofran prn discontinue abx 3. Hypokalemia continue to monitor supplement prn 4. Tobacco abuse cessation counseling Nicotine patch 5. PPx Lovenox Protonix Discussed case with Dr. Scooter Mercedes PGY1 <Case Helms - Last Filed: 12/17/16 13:12> Objective - Vital Signs/Intake and Output Vital Signs (last 24 hours): Temp Pulse Resp BP Pulse Ox 98 F 97 H 18 130/90 97 12/16/16 06:00 12/16/16 09:00 12/16/16 09:00 12/16/16 09:00 12/16/16 09:00 - Labs Labs: 12/16/16 07:45 12/16/16 07:45 PT 10.7 Seconds (9.9-11.8) 12/11/16 16:36 INR 0.99 (0.93-1.08) 12/11/16 16:36 APTT 26.3 Seconds (23.7-30.8) 12/11/16 16:36 Assessment and Plan - Assessment and Plan (Free Text) Assessment: 1.Patient is a 41-year-old male admitted with acute alcohol intoxication and abdominal discomfort. Continue CIWA protocol. fall precautions/seizure precautions/aspiration precautions. Continue IV Ativan and Librium. continue banana bag with multivitamin, thiamine, folic acid. Improving slowly. 2. Mild pancreatitis;secondary to alcohol abuse. GI evaluation appreciated. started on regular diet. 3.GI prophylaxis with Protonix. 4. DVT prophylaxis with Lovenox. 5 Active smoking; smoking cessation is strongly advised. Started on NicoDerm patch. 6. Psychiatric evaluation appreciated. 7.chronic alcohol abuse; multiple rehabs at [facility]. he lives in [place]. 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 on discharge patient will follow up with PMD in [facility]. Attending/Attestation - Attestation I have personally seen and examined this patient.: Yes I have fully participated in the care of the patient.: Yes I have reviewed all pertinent clinical information, including history, physical exam and plan: Yes
[2016-12-14] MEDS: Pantoprazole 40 mg EC Tab PO SCH (06:04)
[2016-12-14 07:00] LABS: ADD MANUAL DIFF? NO
[2016-12-14 07:12] LABS: BASO # 0.03 K/mm3 (0.0-2.0); BASO % 0.5 % (0.0-3.0); EOS # 0.2 (0.0-0.7); EOS % 3.3 % (1.5-5.0); GRAN # 3.93 (1.4-6.5); GRAN % 62.6 % (50.0-68.0); HEMATOCRIT 36.8 % (42.0-52.0); LYMPH # 1.4 (1.2-3.4); LYMPH % 22.1 % (22.0-35.0); MEAN CELL VOLUME 94.8 fL (80.0-105.0); MEAN CORPUSCULAR HEMOGLOBIN 33.5 pg (25.0-35.0); MEAN CORPUSCULAR HGB CONC 35.3 g/dl (31.0-37.0); MEAN PLATELET VOLUME 9.4 fl (7.0-11.0); MONO # 0.7 (0.1-0.6); MONO % 11.5 % (1.0-6.0); PLATELET COUNT 185 10^3/uL (120.0-450.0); RED CELL DISTRIBUTION WIDTH 12.8 % (11.5-14.5); WHITE BLOOD COUNT 6.3 10^3/ul (4.5-11.0)
[2016-12-14 07:23] LABS: ALB/GLOB RATIO 1.1 (1.1-1.8); ALKALINE PHOSPHATASE 59 U/L (38-133); ALT/SGPT 36 U/L (7-56); AST/SGOT 60 U/L (15-59); BLOOD UREA NITROGEN 5 mg/dL (7-21); CALCIUM 8.5 mg/dL (8.4-10.5); CARBON DIOXIDE 22 mmol/L (21-33); CHLORIDE 101 mmol/L (98-107); GFR AFRICAN-AMERICAN > 60; GLUCOSE,RANDOM 88 mg/dL (70-110); POTASSIUM 3.2 mmol/L (3.6-5.0); SODIUM 137 mmol/L (132-148); TOTAL PROTEIN 7.3 g/dL (5.8-8.3)
[2016-12-14] MEDS: Multivitamin Therapeutic Tab PO SCH (08:57)
[2016-12-14] MEDS: Enoxaparin 40 mg Syringe SC SCH ×2 (08:57→09:01)
[2016-12-14] MEDS ORDERED: Potassium Chloride 20 mEq ER Tab PO ONE (09:01)
[2016-12-14 09:58] LABS: MAGNESIUM 1.5 mg/dL (1.7-2.2)
--- NOTE | 2016-12-14 13:25 | CP.PCM.PN ---
<Shree Feldman - Last Filed: 12/14/16 13:16> Subjective - Date & Time of Evaluation Date of Evaluation: 12/14/16 Time of Evaluation: 07:20 - Subjective Subjective: Dr. Feldman PGY 1 Hospitalist Note Patient seen and evaluated at bedside. He states his abdominal pain has subsided and feels a mild nausea when he walks. He notes some dizziness upon ambulation and was advised to call the nurse for assistance. He says he no longer is shaking today. He denies any vomiting, chest pain, SOB, or constipation. He notes that he was recently treated with tetracycline for a dental abscess. He recently had a soft bowel movement but no active diarrhea. He states when he leaves here he will return to going to AA meetings. Objective - Vital Signs/Intake and Output Vital Signs (last 24 hours): Temp Pulse Resp BP Pulse Ox 98.1 F 103 H 20 147/99 H 98 12/14/16 12:00 12/14/16 12:00 12/14/16 12:00 12/14/16 12:00 12/14/16 05:30 Intake and Output: 12/14/16 12/14/16 06:59 18:59 Intake Total 2160 Output Total 2300 Balance -140 - Medications Medications: Current Medications Chlordiazepoxide (Librium) 25 mg PO Q8 PAIGE PRN Reason: Protocol Last Admin: 12/14/16 06:04 Dose: 25 mg Enoxaparin Sodium (Lovenox) 40 mg SC DAILY [facility] PRN Reason: Protocol Last Admin: 12/14/16 09:01 Dose: Not Given Folic Acid (Folic Acid) 1 mg PO DAILY [facility] Last Admin: 12/14/16 08:57 Dose: 1 mg Lorazepam (Ativan) 2 mg IVP Q3 PRN; Protocol PRN Reason: Agitation Last Admin: 12/14/16 12:45 Dose: 2 mg Multivitamins (Thera Tab) 1 tab PO DAILY [facility] Last Admin: 12/14/16 08:57 Dose: 1 tab Nicotine (Nicoderm Cq) 1 patch TD DAILY [facility] Last Admin: 12/14/16 08:56 Dose: 1 patch Ondansetron HCl (Zofran Inj) 4 mg IVP Q4H PRN PRN Reason: Nausea/Vomiting Last Admin: 12/12/16 07:08 Dose: 4 mg Pantoprazole Sodium (Protonix Ec Tab) 40 mg PO 0630 [facility] Last Admin: 12/14/16 06:04 Dose: 40 mg Thiamine HCl (Vitamin B1 Tab) 100 mg PO DAILY [facility] Last Admin: 12/14/16 08:57 Dose: 100 mg - Labs Labs: 12/14/16 06:30 12/14/16 06:30 PT 10.7 Seconds (9.9-11.8) 12/11/16 16:36 INR 0.99 (0.93-1.08) 12/11/16 16:36 APTT 26.3 Seconds (23.7-30.8) 12/11/16 16:36 - Constitutional Appears: Non-toxic, No Acute Distress, Older Than Stated Age, Other (unkempt) - Head Exam Head Exam: ATRAUMATIC, NORMOCEPHALIC - Eye Exam Eye Exam: EOMI, Normal appearance, PERRL Pupil Exam: NORMAL ACCOMODATION, PERRL - ENT Exam ENT Exam: Mucous Membranes Moist - Respiratory Exam Respiratory Exam: Clear to Ausculation Bilateral, NORMAL BREATHING PATTERN. absent: Rales, Rhonchi, Wheezes - Cardiovascular Exam Cardiovascular Exam: REGULAR RHYTHM, +S1, +S2 - GI/Abdominal Exam GI & Abdominal Exam: Soft, Normal Bowel Sounds. absent: Distended, Guarding, Tenderness - Extremities Exam Extremities Exam: Normal Inspection. absent: Pedal Edema, Tenderness - Back Exam Back Exam: NORMAL INSPECTION. absent: muscle spasm, rash noted, tenderness - Neurological Exam Neurological Exam: Alert, Awake, CN II-XII Intact, Oriented x3 Additional comments: decreased asterixis - Psychiatric Exam Psychiatric exam: Normal Affect, Normal Mood - Skin Skin Exam: Dry, Intact, Warm Assessment and Plan - Assessment and Plan (Free Text) Assessment: 41yo M with PMHx of ETOH abuse here for acute alcohol intoxication and abdominal discomfort. Plan: 1. Alcohol withdrawal * tremors improved today, * unsteady gait- PT consulted for gait evaluation * [facility] protocol * Seizure precaution * Fall Precaution * Aspiration precaution * Taper Librium and Ativan * Continue folica acid, multivitamin, and thiamine * Chronic ETOH use. Multiple failed rehabs. * Psych consult appreciated 2. Pancreatitis * secondary to alcohol abuse * GI consulted, help appreciated * Advance diet as tolerated * Zofran prn 3. Electrolyte imbalance * potassium and mag low * replenish as needed 4. Tobacco abuse * cessation counseling * Nicotine patch 5. PPx * Lovenox * Protonix Assessment and plan discussed with attending physician. <Leslie Zapien - Last Filed: 12/15/16 07:44> Objective - Vital Signs/Intake and Output Vital Signs (last 24 hours): Temp Pulse Resp BP Pulse Ox 98 F 84 20 144/100 H 98 12/15/16 06:00 12/15/16 06:00 12/15/16 06:00 12/15/16 06:00 12/15/16 06:00 Intake and Output: 12/15/16 12/15/16 06:59 18:59 Intake Total 720 Output Total 700 Balance 20 - Medications Medications: Current Medications Chlordiazepoxide (Librium) 10 mg PO Q8 PAIGE PRN Reason: Protocol Last Admin: 12/15/16 06:12 Dose: 10 mg Enoxaparin Sodium (Lovenox) 40 mg SC DAILY [facility] PRN Reason: Protocol Last Admin: 12/14/16 09:01 Dose: Not Given Folic Acid (Folic Acid) 1 mg PO DAILY [facility] Last Admin: 12/14/16 08:57 Dose: 1 mg Lorazepam (Ativan) 2 mg IVP Q4 PRN; Protocol PRN Reason: Symptoms of alcohol withdrawl Last Admin: 12/15/16 02:16 Dose: 2 mg Multivitamins (Thera Tab) 1 tab PO DAILY [facility] Last Admin: 12/14/16 08:57 Dose: 1 tab Nicotine (Nicoderm Cq) 1 patch TD DAILY [facility] Last Admin: 12/14/16 08:56 Dose: 1 patch Ondansetron HCl (Zofran Inj) 4 mg IVP Q4H PRN PRN Reason: Nausea/Vomiting Last Admin: 12/12/16 07:08 Dose: 4 mg Pantoprazole Sodium (Protonix Ec Tab) 40 mg PO 0630 [facility] Last Admin: 12/15/16 06:12 Dose: 40 mg Thiamine HCl (Vitamin B1 Tab) 100 mg PO DAILY [facility] Last Admin: 12/14/16 08:57 Dose: 100 mg - Labs Labs: 12/15/16 06:50 12/14/16 06:30 PT 10.7 Seconds (9.9-11.8) 12/11/16 16:36 INR 0.99 (0.93-1.08) 12/11/16 16:36 APTT 26.3 Seconds (23.7-30.8) 12/11/16 16:36 Attending/Attestation - Attestation I have personally seen and examined this patient.: Yes I have fully participated in the care of the patient.: Yes I have reviewed all pertinent clinical information, including history, physical exam and plan: Yes Notes (Text): I have seen and examined the patient with the resident. This is 41 year old male with history of alcohol abuse who got admitted for alcohol induced pancreatitis. Reports that his abdominal pain has improved. Denies nausea, vomiting, fever , chills however reports that he had 2 episodes of soft BM 1 day ago. Cdiff antgen came back positive. Contact precautions started and ordered to repeat cdiff. Patient required 12 mg of ativan in the last 24 hours and also has been getting 25 q8 librium. He is mildly tremulous however denies diaphoresis, anxiety, agitation, nausea or vomiting. Will taper librium to 10 q8 and also taper ativan prn. Will order for PT eval. Dr Leslie Zapien
[2016-12-14] MEDS ORDERED: Magnesium Oxide 400 mg Tab UD PO STA (13:35)
[2016-12-15] MEDS: Pantoprazole 40 mg EC Tab PO SCH (06:12)
[2016-12-15 07:20] LABS: ADD MANUAL DIFF? NO
[2016-12-15 07:25] LABS: BASO # 0.03 K/mm3 (0.0-2.0); BASO % 0.5 % (0.0-3.0); EOS # 0.3 (0.0-0.7); EOS % 4.9 % (1.5-5.0); GRAN # 3.53 (1.4-6.5); GRAN % 59.6 % (50.0-68.0); HEMATOCRIT 36.4 % (42.0-52.0); LYMPH # 1.5 (1.2-3.4); LYMPH % 25.2 % (22.0-35.0); MEAN CELL VOLUME 94.8 fL (80.0-105.0); MEAN CORPUSCULAR HEMOGLOBIN 33.1 pg (25.0-35.0); MEAN CORPUSCULAR HGB CONC 34.9 g/dl (31.0-37.0); MEAN PLATELET VOLUME 9.8 fl (7.0-11.0); MONO # 0.6 (0.1-0.6); MONO % 9.8 % (1.0-6.0); PLATELET COUNT 173 10^3/uL (120.0-450.0); RED CELL DISTRIBUTION WIDTH 12.8 % (11.5-14.5); WHITE BLOOD COUNT 5.9 10^3/ul (4.5-11.0)
[2016-12-15 07:43] LABS: ALB/GLOB RATIO 1.1 (1.1-1.8); ALKALINE PHOSPHATASE 65 U/L (38-133); ALT/SGPT 36 U/L (7-56); AST/SGOT 65 U/L (15-59); BILIRUBIN,TOTAL 0.8 mg/dL (0.2-1.3); BLOOD UREA NITROGEN 8 mg/dL (7-21); CALCIUM 8.8 mg/dL (8.4-10.5); CARBON DIOXIDE 23 mmol/L (21-33); CHLORIDE 103 mmol/L (98-107); GFR AFRICAN-AMERICAN > 60; GLUCOSE,RANDOM 101 mg/dL (70-110); MAGNESIUM 1.8 mg/dL (1.7-2.2); PHOSPHOROUS 4.2 mg/dL (2.5-4.5); POTASSIUM 3.1 mmol/L (3.6-5.0); SODIUM 136 mmol/L (132-148)
[2016-12-15] MEDS: Multivitamin Therapeutic Tab PO SCH ×2 (09:01→09:04)
[2016-12-15] MEDS: Enoxaparin 40 mg Syringe SC SCH (09:02)
[2016-12-15] MEDS ORDERED: Potassium Chloride 20 mEq ER Tab PO STA (09:37)
--- NOTE | 2016-12-15 13:40 | CP.PCM.PN ---
Addendum entered and electronically signed by Shree Feldman DO 12/15/16 14:04: Patient stool studies positive for C.diff antigen. Started on PO flagyl and placed on contact precautions. Original Note: <Shree Feldman - Last Filed: 12/15/16 13:36> Subjective - Date & Time of Evaluation Date of Evaluation: 12/15/16 Time of Evaluation: 07:30 - Subjective Subjective: Dr. Feldman PGY 1 Hospitalist note Patient seen and evaluated at bedside. He reports his shakes have improved more than yesterday but continues to feel withdrawal symptoms. He has some abdominal discomfort but nausea, vomiting, or diarrhea. He reports having two soft bowel movements yesterday. He is tolerating his diet well. He says he still feels unsteady walking to the restroom. A 12 point review of systems was performed and is negative except where indicated above. Objective - Vital Signs/Intake and Output Vital Signs (last 24 hours): Temp Pulse Resp BP Pulse Ox 97.9 F 86 20 138/86 98 12/15/16 12:00 12/15/16 12:00 12/15/16 12:00 12/15/16 12:00 12/15/16 06:00 Intake and Output: 12/15/16 12/15/16 06:59 18:59 Intake Total 720 Output Total 700 Balance 20 - Medications Medications: Current Medications Albuterol/Ipratropium (Duoneb 3 Mg/0.5 Mg (3 Ml) Ud) 3 ml IH [id number] PAIGE Chlordiazepoxide (Librium) 5 mg PO Q8 PAIGE PRN Reason: Protocol Enoxaparin Sodium (Lovenox) 40 mg SC DAILY [facility] PRN Reason: Protocol Last Admin: 12/15/16 09:02 Dose: 40 mg Folic Acid (Folic Acid) 1 mg PO DAILY [facility] Last Admin: 12/15/16 09:03 Dose: Not Given Lorazepam (Ativan) 2 mg IVP Q4 PRN; Protocol PRN Reason: Symptoms of alcohol withdrawl Last Admin: 12/15/16 13:15 Dose: 2 mg Metronidazole (Flagyl) 500 mg PO TID [facility]IGE PRN Reason: Protocol Multivitamins (Thera Tab) 1 tab PO DAILY [facility] Last Admin: 12/15/16 09:04 Dose: Not Given Nicotine (Nicoderm Cq) 1 patch TD DAILY [facility] Last Admin: 12/15/16 09:03 Dose: Not Given Ondansetron HCl (Zofran Inj) 4 mg IVP Q4H PRN PRN Reason: Nausea/Vomiting Last Admin: 12/12/16 07:08 Dose: 4 mg Pantoprazole Sodium (Protonix Ec Tab) 40 mg PO 0630 [facility] Last Admin: 12/15/16 06:12 Dose: 40 mg Thiamine HCl (Vitamin B1 Tab) 100 mg PO DAILY [facility] Last Admin: 12/15/16 09:04 Dose: Not Given - Labs Labs: 12/15/16 06:50 12/15/16 06:50 PT 10.7 Seconds (9.9-11.8) 12/11/16 16:36 INR 0.99 (0.93-1.08) 12/11/16 16:36 APTT 26.3 Seconds (23.7-30.8) 12/11/16 16:36 - Constitutional Appears: Non-toxic, No Acute Distress - Head Exam Head Exam: ATRAUMATIC, NORMOCEPHALIC - Eye Exam Eye Exam: EOMI, Normal appearance, PERRL Pupil Exam: NORMAL ACCOMODATION, PERRL - ENT Exam ENT Exam: Mucous Membranes Moist - Respiratory Exam Respiratory Exam: Clear to Ausculation Bilateral, NORMAL BREATHING PATTERN. absent: Rales, Rhonchi, Wheezes - Cardiovascular Exam Cardiovascular Exam: REGULAR RHYTHM, +S1, +S2. absent: Gallop, Rubs, Murmur - GI/Abdominal Exam GI & Abdominal Exam: Soft, Normal Bowel Sounds. absent: Tenderness - Extremities Exam Extremities Exam: Normal Inspection. absent: Pedal Edema, Tenderness - Back Exam Back Exam: NORMAL INSPECTION. absent: rash noted, tenderness - Neurological Exam Neurological Exam: Alert, Awake, CN II-XII Intact, Oriented x3 Additional comments: mild asterixis - Psychiatric Exam Psychiatric exam: Normal Affect, Normal Mood - Skin Skin Exam: Dry, Intact, Normal Color, Warm Assessment and Plan - Assessment and Plan (Free Text) Assessment: 41yo M with PMHx of ETOH abuse here for acute alcohol intoxication and abdominal discomfort. Plan: 1. Alcohol withdrawal * Chronic ETOH use. Multiple failed rehabs. * Psych consult appreciated * tremors improving * unsteady gait- PT consulted for gait evaluation * CIWA protocol * Seizure precaution * Fall Precaution * Aspiration precaution * Continue to Taper Librium- changed today 5mg Q8H and Ativan 2mg Q4H * Continue folic acid, multivitamin, and thiamine 2. Pancreatitis * abdominal pain improved * secondary to alcohol abuse * GI consulted, help appreciated * Advance diet as tolerated * Zofran prn 3. Electrolyte imbalance * potassium 3.1 today * replenish as needed 4. Tobacco abuse * cessation counseling * Nicotine patch 5. PPx * Lovenox * Protonix Assessment and plan discussed with attending physician. <Leslie Zapien B - Last Filed: 12/15/16 15:11> Objective - Vital Signs/Intake and Output Vital Signs (last 24 hours): Temp Pulse Resp BP Pulse Ox 97.9 F 86 20 138/86 98 12/15/16 12:00 12/15/16 12:00 12/15/16 12:00 12/15/16 12:00 12/15/16 06:00 Intake and Output: 12/15/16 12/15/16 06:59 18:59 Intake Total 720 Output Total 700 Balance 20 - Medications Medications: Current Medications Chlordiazepoxide (Librium) 5 mg PO Q8 [facility] PRN Reason: Protocol Enoxaparin Sodium (Lovenox) 40 mg SC DAILY [facility] PRN Reason: Protocol Last Admin: 12/15/16 09:02 Dose: 40 mg Folic Acid (Folic Acid) 1 mg PO DAILY [facility] Last Admin: 12/15/16 09:03 Dose: Not Given Lorazepam (Ativan) 2 mg IVP Q4 PRN; Protocol PRN Reason: Symptoms of alcohol withdrawl Last Admin: 12/15/16 13:15 Dose: 2 mg Metronidazole (Flagyl) 500 mg PO TID [facility] PRN Reason: Protocol Multivitamins (Thera Tab) 1 tab PO DAILY [facility] Last Admin: 12/15/16 09:04 Dose: Not Given Nicotine (Nicoderm Cq) 1 patch TD DAILY [facility] Last Admin: 12/15/16 09:03 Dose: Not Given Ondansetron HCl (Zofran Inj) 4 mg IVP Q4H PRN PRN Reason: Nausea/Vomiting Last Admin: 12/12/16 07:08 Dose: 4 mg Pantoprazole Sodium (Protonix Ec Tab) 40 mg PO 0630 [facility] Last Admin: 12/15/16 06:12 Dose: 40 mg Thiamine HCl (Vitamin B1 Tab) 100 mg PO DAILY [facility] Last Admin: 12/15/16 09:04 Dose: Not Given - Labs Labs: 12/15/16 06:50 12/15/16 06:50 PT 10.7 Seconds (9.9-11.8) 12/11/16 16:36 INR 0.99 (0.93-1.08) 12/11/16 16:36 APTT 26.3 Seconds (23.7-30.8) 12/11/16 16:36 Attending/Attestation - Attestation I have personally seen and examined this patient.: Yes I have fully participated in the care of the patient.: Yes I have reviewed all pertinent clinical information, including history, physical exam and plan: Yes Notes (Text): I have seen and examined the patient with the resident. This is 41 year old male with history of alcohol abuse who got admitted for alcohol induced pancreatitis. Reports that his abdominal pain has resolved. Denies nausea, vomiting, fever , chills however reports that he had 2 episodes of soft BM 1 day ago. Cdiff antigen came back positive. Contact precautions were started and ordered to repeat cdiff. Repeat antigen is again positive. Will start flagyl. He is mildly tremulous however denies diaphoresis, anxiety, agitation, nausea or vomiting. Will taper librium to 5 q8 and also taper ativan prn. Patient complains of dizziness while walking. PT eval pending. Plan to dc patient tomorrow. Dr Leslie Zapien
[2016-12-15] MEDS ORDERED: Albuterol-Ipratrop 3 mg / 0.5 (3 ml) UD IH SCH (14:00)
[2016-12-16] MEDS: Pantoprazole 40 mg EC Tab PO SCH (05:46)
[2016-12-16 06:20] VITALS: TEMP 98
[2016-12-16 07:54] LABS: ADD MANUAL DIFF? NO
[2016-12-16 08:05] LABS: BASO # 0.04 K/mm3 (0.0-2.0); BASO % 0.7 % (0.0-3.0); EOS # 0.2 (0.0-0.7); EOS % 3.9 % (1.5-5.0); GRAN # 3.52 (1.4-6.5); GRAN % 59.2 % (50.0-68.0); HEMATOCRIT 37.2 % (42.0-52.0); LYMPH # 1.5 (1.2-3.4); LYMPH % 24.9 % (22.0-35.0); MEAN CELL VOLUME 95.9 fL (80.0-105.0); MEAN CORPUSCULAR HGB CONC 34.4 g/dl (31.0-37.0); MONO # 0.7 (0.1-0.6); MONO % 11.3 % (1.0-6.0); PLATELET COUNT 187 10^3/uL (120.0-450.0); RED CELL DISTRIBUTION WIDTH 13.1 % (11.5-14.5); WHITE BLOOD COUNT 5.9 10^3/ul (4.5-11.0)
[2016-12-16 08:18] LABS: ALB/GLOB RATIO 1.1 (1.1-1.8); ALKALINE PHOSPHATASE 65 U/L (38-133); ALT/SGPT 47 U/L (7-56); AST/SGOT 68 U/L (15-59); BILIRUBIN,TOTAL 0.7 mg/dL (0.2-1.3); BLOOD UREA NITROGEN 8 mg/dL (7-21); CALCIUM 9.3 mg/dL (8.4-10.5); CARBON DIOXIDE 23 mmol/L (21-33); CHLORIDE 103 mmol/L (98-107); GFR AFRICAN-AMERICAN > 60; GLUCOSE,RANDOM 99 mg/dL (70-110); MAGNESIUM 1.9 mg/dL (1.7-2.2); PHOSPHOROUS 4.4 mg/dL (2.5-4.5); POTASSIUM 3.6 mmol/L (3.6-5.0); SODIUM 139 mmol/L (132-148); TOTAL PROTEIN 7.3 g/dL (5.8-8.3)
[2016-12-16] MEDS: Multivitamin Therapeutic Tab PO SCH (09:15)
--- NOTE | 2016-12-16 09:29 | CP.PCM.DIS ---
<Shree Feldman - Last Filed: 12/17/16 18:07> Provider - Provider Date of Admission: 12/11/16 21:09 Attending physician: Leslie Zapien MD Consults: Dr. Paresh Mares Time Spent in preparation of Discharge (in minutes): 35 Hospital Course - Lab Results Lab Results: Micro Results 12/13/16 14:30 Stool Stool Culture - Final NO SALMONELLA, SHIGELLA OR CAMPYLOBACTER ISOLATED. 12/14/16 17:40 Stool C. difficile Antigen & Toxin A,B (M - Final 12/13/16 14:30 Stool C. difficile Antigen & Toxin A,B (M - Final Most Recent Lab Values WBC 5.9 10^3/ul (4.5-11.0) 12/16/16 07:45 RBC 3.88 10^6/uL (3.5-6.1) 12/16/16 07:45 Hgb 12.8 gm/dL (14.0-18.0) L 12/16/16 07:45 Hct 37.2 % (42.0-52.0) L 12/16/16 07:45 MCV 95.9 fL (80.0-105.0) 12/16/16 07:45 MCH 33.0 pg (25.0-35.0) 12/16/16 07:45 MCHC 34.4 g/dl (31.0-37.0) 12/16/16 07:45 RDW 13.1 % (11.5-14.5) 12/16/16 07:45 Plt Count 187 10^3/uL (120.0-450.0) 12/16/16 07:45 MPV 10.0 fl (7.0-11.0) 12/16/16 07:45 Gran % 59.2 % (50.0-68.0) 12/16/16 07:45 Lymph % (Auto) 24.9 % (22.0-35.0) 12/16/16 07:45 [place] % (Auto) 11.3 % (1.0-6.0) H 12/16/16 07:45 Eos % (Auto) 3.9 % (1.5-5.0) 12/16/16 07:45 Baso % (Auto) 0.7 % (0.0-3.0) 12/16/16 07:45 Gran # 3.52 (1.4-6.5) 12/16/16 07:45 Lymph # 1.5 (1.2-3.4) 12/16/16 07:45 [place] # 0.7 (0.1-0.6) H 12/16/16 07:45 Eos # 0.2 (0.0-0.7) 12/16/16 07:45 Baso # 0.04 K/mm3 (0.0-2.0) 12/16/16 07:45 PT 10.7 Seconds (9.9-11.8) 12/11/16 16:36 INR 0.99 (0.93-1.08) 12/11/16 16:36 APTT 26.3 Seconds (23.7-30.8) 12/11/16 16:36 Sodium 139 mmol/L (132-148) 12/16/16 07:45 Potassium 3.6 mmol/L (3.6-5.0) 12/16/16 07:45 Chloride 103 mmol/L (98-107) 12/16/16 07:45 Carbon Dioxide 23 mmol/L (21-33) 12/16/16 07:45 Anion Gap 17 (10-20) 12/16/16 07:45 BUN 8 mg/dL (7-21) 12/16/16 07:45 Creatinine 0.6 mg/dL (0.5-1.4) 12/16/16 07:45 Est GFR ( Amer) > 60 12/16/16 07:45 Est GFR (Non-Af Amer) > 60 12/16/16 07:45 POC Glucose (mg/dL) 99 mg/dL (65-110) 12/11/16 16:48 Random Glucose 99 mg/dL (70-110) 12/16/16 07:45 Calcium 9.3 mg/dL (8.4-10.5) 12/16/16 07:45 Phosphorus 4.4 mg/dL (2.5-4.5) 12/16/16 07:45 Magnesium 1.9 mg/dL (1.7-2.2) 12/16/16 07:45 Total Bilirubin 0.7 mg/dL (0.2-1.3) 12/16/16 07:45 AST 68 U/L (15-59) H 12/16/16 07:45 ALT 47 U/L (7-56) 12/16/16 07:45 Alkaline Phosphatase 65 U/L (38-133) 12/16/16 07:45 Lactate Dehydrogenase 572 U/L (333-699) 12/11/16 16:36 Total Creatine Kinase 111 U/L (35-230) 12/11/16 16:36 Troponin I < 0.01 ng/mL 12/11/16 16:36 NT-Pro-B Natriuret Pep 39.1 pg/mL (0-450) 12/11/16 16:36 Total Protein 7.3 g/dL (5.8-8.3) 12/16/16 07:45 Albumin 3.9 g/dL (3.0-4.8) 12/16/16 07:45 Globulin 3.5 gm/dL 12/16/16 07:45 Albumin/Globulin Ratio 1.1 (1.1-1.8) 12/16/16 07:45 Triglycerides 50 mg/dL (35-160) 12/12/16 06:15 Cholesterol 184 mg/dL (130-200) 12/12/16 06:15 LDL Cholesterol Direct 87 mg/dL (0-129) 12/12/16 06:15 HDL Cholesterol 85 mg/dL (29-60) H 12/12/16 06:15 Amylase 246 U/L (35-125) H 12/11/16 16:36 Lipase 563 U/L (23-300) H 12/11/16 16:36 Urine Color Yellow (YELLOW) 12/11/16 16:36 Urine Appearance Clear (CLEAR) 12/11/16 16:36 Urine pH 6.5 (4.7-8.0) 12/11/16 16:36 Ur Specific Gonzales <= 1.005 (1.005-1.035) 12/11/16 16:36 Urine Protein Negative mg/dL (<30 mg/dL) 12/11/16 16:36 Urine Glucose (UA) Negative mg/dL (NEGATIVE) 12/11/16 16:36 Urine Ketones Negative mg/dL (NEGATIVE) 12/11/16 16:36 Urine Blood Negative (NEGATIVE) 12/11/16 16:36 Urine Nitrate Negative (NEGATIVE) 12/11/16 16:36 Urine Bilirubin Negative (NEGATIVE) 12/11/16 16:36 Urine Urobilinogen 0.2 E.U./dL (<1 E.U./dL) 12/11/16 16:36 Ur Leukocyte Esterase Negative Joyce/uL (NEGATIVE) 12/11/16 16:36 Salicylates < 1 mg/dL (2.0-20.0) L 12/11/16 16:36 Urine Opiates Screen Negative (NEGATIVE) 12/11/16 16:36 Urine Methadone Screen Negative (NEGATIVE) 12/11/16 16:36 Acetaminophen < 10.0 ug/ml (10.0-20.0) L 12/11/16 16:36 Ur Barbiturates Screen Negative (NEGATIVE) 12/11/16 16:36 Ur Phencyclidine Scrn Negative (NEGATIVE) 12/11/16 16:36 Ur Amphetamines Screen Negative (NEGATIVE) 12/11/16 16:36 U Benzodiazepines Scrn Negative (NEGATIVE) 12/11/16 16:36 U Oth Cocaine Metabols Negative (NEGATIVE) 12/11/16 16:36 U Cannabinoids Screen Negative (NEGATIVE) 12/11/16 16:36 Alcohol, Quantitative 426 mg/dL (0-10) H* 12/11/16 16:36 Hepatitis A IgM Ab Negative (NEGATIVE) 12/13/16 06:35 Hep Bs Antigen Negative (NEGATIVE) 12/13/16 06:35 Hep B Core IgM Ab Negative (NEGATIVE) 12/13/16 06:35 Hepatitis C Antibody Negative (NEGATIVE) 12/13/16 06:35 - Hospital Course Hospital Course: HPI: 41 years old male states that he has had abdominal pain "for two weeks" with 1 diaahrea and 1 vomit episode 2 weeks ago. He claimed that he is an alcoholic and recently signed out AMA from [facility] 2 weeks ago. Then he had 1 diarrhea episode non bloody, 1 vomit episode, bilous, felt general weakness, thus "i've just been laying in bed for two weeks". His abdominal pain started RLQ and now spread to diffuse all quadrants. The pain comes and goes, since he is drinking vodka constantly so he cannot recall the duration of pain or trigger events. Patient denies any chest pain or shortness of breath. States that he "gets up and takes a walk". Pt states that he had colonoscopy 2 weeks ago which showed internal hemorroid but he felt pain during defecation all the time. (+) blood streaks on tissue paper, occassiobal bright red blood in toilet but not occasssiobnally Patient is a 41 y/o M who presented to the ED with compalint of two weeks of abdominal pain and diarrhea. An initial EKG was performed showing normal sinus rhythm. A chest x-ray was performed showing no active pulmonary disease. A Ct of the abdomen showed findings supportive of colitis and mild sigmoid constipation. His LFT's, Amylase, and Lipase were elevated, so GI was consulted. HE was made NPO and started on IV fluid hydration. Due to reported alcoholism, he was placed on seizure precautions and a Librium and Ativan taper as well as psychiatry consulted. The patient's abdominal symptoms improved and his withdrawals subsided. He was able to tolerate a diet. He was found to have C. diff and started on oral Flagyl. He was found to be medically stable. He was discharged home with prescriptions for Naltrexone 50mg PO daily, Flagyl 500mg PO TID, Folic Acid 1mg PO daily, Multivitamin 1 tab PO daily, and Thiamine 100mg PO daily. He was advised to: take medications as prescribed, refrain from alcohol and tobacco use and attend AA meetings, check in with sponsor, and follow up with [facility]; follow up with your primary care physician and camera technician within a week of discharge; and if your symptoms worsen or new condition arises, please return to the emergency room. He verbalized understanding and was discharged home. This is a brief summary of the patient's stay at this facility. For more detail , see patient's full chart. - Date & Time of H&P Date of H&P: 12/11/16 Time of H&P: 21:48 Discharge Exam - Head Exam Head Exam: ATRAUMATIC, NORMOCEPHALIC - Eye Exam Eye Exam: EOMI, Normal appearance, PERRL Pupil Exam: NORMAL ACCOMODATION - ENT Exam ENT Exam: Mucous Membranes Moist - Respiratory Exam Respiratory Exam: Clear to PA & Lateral, NORMAL BREATHING PATTERN. absent: Rales, Rhonchi, Wheezes - Cardiovascular Exam Cardiovascular Exam: REGULAR RHYTHM, +S1, +S2. absent: Gallop, Rubs, Systolic Murmur - GI/Abdominal Exam GI & Abdominal Exam: Normal Bowel Sounds, Soft. absent: Tenderness - Extremities Exam Extremities exam: normal capillary refill, normal inspection, pedal pulses present - Back Exam Back exam: NORMAL INSPECTION. absent: paraspinal tenderness, tenderness - Neurological Exam Neurological exam: Alert, CN II-XII Intact, Oriented x3, Reflexes Normal - Psychiatric Exam Psychiatric exam: Normal Affect, Normal Mood - Skin Skin Exam: Dry, Intact, Warm Discharge Plan - Discharge Medications Prescriptions: metroNIDAZOLE [Flagyl] 500 mg PO TID #21 tab Folic Acid 1 mg PO DAILY #30 tab Naltrexone [Revia] 50 mg PO DAILY #14 tab Multivitamin Therapeutic Tab [Thera Tab] 1 tab PO DAILY #30 tab Thiamine [Vitamin B1 Tab] 100 mg PO DAILY #30 tab - Follow Up Plan Condition: FAIR Disposition: HOME/ ROUTINE Instructions: How to Stop Smoking (GEN), Pancreatitis (DC), Cigarette Smoking and Your Health (GEN), Alcohol Intoxication (GEN), Abuse of Alcohol (GEN), At- Risk Alcohol Use (GEN), Acute Nausea and Vomiting (GEN), Infectious Colitis (GEN ), Alcohol Use Disorder (GEN) Additional Instructions: 1) You are discharged home with prescriptions for Naltrexone 50mg PO daily, Flagyl 500mg PO TID, Folic Acid 1mg PO daily, Multivitamin 1 tab PO daily, and Thiamine 100mg PO daily. 2) Please take medications as prescribed. 3) Please refrain from alcohol and tobacco use and attend AA meetings, check in with sponsor, and follow up with [facility]. 4) Please follow up with your primary care physician and camera technician within a week of discharge. 5) If your symptoms worsen or new condition arises, please return to the emergency room. Referrals: [facility] [Outside] [facility], [Non-Staff] - Ophelia Mares MD [Staff Provider] - <Leslie Zapien - Last Filed: 12/18/16 14:31> Provider - Provider Date of Admission: 12/11/16 21:09 Attending physician: Leslie Zapien MD Hospital Course - Lab Results Lab Results: Micro Results 12/13/16 14:30 Stool Stool Culture - Final NO SALMONELLA, SHIGELLA OR CAMPYLOBACTER ISOLATED. 12/14/16 17:40 Stool C. difficile Antigen & Toxin A,B (M - Final 12/13/16 14:30 Stool C. difficile Antigen & Toxin A,B (M - Final Most Recent Lab Values WBC 5.9 10^3/ul (4.5-11.0) 12/16/16 07:45 RBC 3.88 10^6/uL (3.5-6.1) 12/16/16 07:45 Hgb 12.8 gm/dL (14.0-18.0) L 12/16/16 07:45 Hct 37.2 % (42.0-52.0) L 12/16/16 07:45 MCV 95.9 fL (80.0-105.0) 12/16/16 07:45 MCH 33.0 pg (25.0-35.0) 12/16/16 07:45 MCHC 34.4 g/dl (31.0-37.0) 12/16/16 07:45 RDW 13.1 % (11.5-14.5) 12/16/16 07:45 Plt Count 187 10^3/uL (120.0-450.0) 12/16/16 07:45 MPV 10.0 fl (7.0-11.0) 12/16/16 07:45 Gran % 59.2 % (50.0-68.0) 12/16/16 07:45 Lymph % (Auto) 24.9 % (22.0-35.0) 12/16/16 07:45 [place] % (Auto) 11.3 % (1.0-6.0) H 12/16/16 07:45 Eos % (Auto) 3.9 % (1.5-5.0) 12/16/16 07:45 Baso % (Auto) 0.7 % (0.0-3.0) 12/16/16 07:45 Gran # 3.52 (1.4-6.5) 12/16/16 07:45 Lymph # 1.5 (1.2-3.4) 12/16/16 07:45 [place] # 0.7 (0.1-0.6) H 12/16/16 07:45 Eos # 0.2 (0.0-0.7) 12/16/16 07:45 Baso # 0.04 K/mm3 (0.0-2.0) 12/16/16 07:45 PT 10.7 Seconds (9.9-11.8) 12/11/16 16:36 INR 0.99 (0.93-1.08) 12/11/16 16:36 APTT 26.3 Seconds (23.7-30.8) 12/11/16 16:36 Sodium 139 mmol/L (132-148) 12/16/16 07:45 Potassium 3.6 mmol/L (3.6-5.0) 12/16/16 07:45 Chloride 103 mmol/L (98-107) 12/16/16 07:45 Carbon Dioxide 23 mmol/L (21-33) 12/16/16 07:45 Anion Gap 17 (10-20) 12/16/16 07:45 BUN 8 mg/dL (7-21) 12/16/16 07:45 Creatinine 0.6 mg/dL (0.5-1.4) 12/16/16 07:45 Est GFR ( Amer) > 60 12/16/16 07:45 Est GFR (Non-Af Amer) > 60 12/16/16 07:45 POC Glucose (mg/dL) 99 mg/dL (65-110) 12/11/16 16:48 Random Glucose 99 mg/dL (70-110) 12/16/16 07:45 Calcium 9.3 mg/dL (8.4-10.5) 12/16/16 07:45 Phosphorus 4.4 mg/dL (2.5-4.5) 12/16/16 07:45 Magnesium 1.9 mg/dL (1.7-2.2) 12/16/16 07:45 Total Bilirubin 0.7 mg/dL (0.2-1.3) 12/16/16 07:45 AST 68 U/L (15-59) H 12/16/16 07:45 ALT 47 U/L (7-56) 12/16/16 07:45 Alkaline Phosphatase 65 U/L (38-133) 12/16/16 07:45 Lactate Dehydrogenase 572 U/L (333-699) 12/11/16 16:36 Total Creatine Kinase 111 U/L (35-230) 12/11/16 16:36 Troponin I < 0.01 ng/mL 12/11/16 16:36 NT-Pro-B Natriuret Pep 39.1 pg/mL (0-450) 12/11/16 16:36 Total Protein 7.3 g/dL (5.8-8.3) 12/16/16 07:45 Albumin 3.9 g/dL (3.0-4.8) 12/16/16 07:45 Globulin 3.5 gm/dL 12/16/16 07:45 Albumin/Globulin Ratio 1.1 (1.1-1.8) 12/16/16 07:45 Triglycerides 50 mg/dL (35-160) 12/12/16 06:15 Cholesterol 184 mg/dL (130-200) 12/12/16 06:15 LDL Cholesterol Direct 87 mg/dL (0-129) 12/12/16 06:15 HDL Cholesterol 85 mg/dL (29-60) H 12/12/16 06:15 Amylase 246 U/L (35-125) H 12/11/16 16:36 Lipase 563 U/L (23-300) H 12/11/16 16:36 Urine Color Yellow (YELLOW) 12/11/16 16:36 Urine Appearance Clear (CLEAR) 12/11/16 16:36 Urine pH 6.5 (4.7-8.0) 12/11/16 16:36 Ur Specific [place] <= 1.005 (1.005-1.035) 12/11/16 16:36 Urine Protein Negative mg/dL (<30 mg/dL) 12/11/16 16:36 Urine Glucose (UA) Negative mg/dL (NEGATIVE) 12/11/16 16:36 Urine Ketones Negative mg/dL (NEGATIVE) 12/11/16 16:36 Urine Blood Negative (NEGATIVE) 12/11/16 16:36 Urine Nitrate Negative (NEGATIVE) 12/11/16 16:36 Urine Bilirubin Negative (NEGATIVE) 12/11/16 16:36 Urine Urobilinogen 0.2 E.U./dL (<1 E.U./dL) 12/11/16 16:36 Ur Leukocyte Esterase Negative Joyce/uL (NEGATIVE) 12/11/16 16:36 Salicylates < 1 mg/dL (2.0-20.0) L 12/11/16 16:36 Urine Opiates Screen Negative (NEGATIVE) 12/11/16 16:36 Urine Methadone Screen Negative (NEGATIVE) 12/11/16 16:36 Acetaminophen < 10.0 ug/ml (10.0-20.0) L 12/11/16 16:36 Ur Barbiturates Screen Negative (NEGATIVE) 12/11/16 16:36 Ur Phencyclidine Scrn Negative (NEGATIVE) 12/11/16 16:36 Ur Amphetamines Screen Negative (NEGATIVE) 12/11/16 16:36 U Benzodiazepines Scrn Negative (NEGATIVE) 12/11/16 16:36 U Oth Cocaine Metabols Negative (NEGATIVE) 12/11/16 16:36 U Cannabinoids Screen Negative (NEGATIVE) 12/11/16 16:36 Alcohol, Quantitative 426 mg/dL (0-10) H* 12/11/16 16:36 Hepatitis A IgM Ab Negative (NEGATIVE) 12/13/16 06:35 Hep Bs Antigen Negative (NEGATIVE) 12/13/16 06:35 Hep B Core IgM Ab Negative (NEGATIVE) 12/13/16 06:35 Hepatitis C Antibody Negative (NEGATIVE) 12/13/16 06:35 Attending/Attestation - Attestation I have personally seen and examined this patient.: Yes I have fully participated in the care of the patient.: Yes I have reviewed all pertinent clinical information, including history, physical exam and plan: Yes Notes (Text): I have seen and examined the patient with the resident. This is 41 year old male with history of alcohol abuse who got admitted for alcohol induced pancreatitis. Reports that his abdominal pain has resolved. Denies nausea, vomiting, fever , chills however reports that he did not have any bowel movement today. Yesterday he had 2 episodes of soft BM. Cdiff antigen x2 came back positive. Flagyl was started. He is all dressed up and denies any complaints including headache, nausea, vomiting, diarrhea, tremors, anxiety and is requesting to be discharged. Counselling was provided regarding alcohol abuse. Will give scripts for thiamin, MVI and folic acid. PT eval was done and his gait was found to be steady. Advised the patient to follow up with PMD of choice. Dr Leslie Zapien
[2016-12-16 10:22] VITALS: BP 130/90; PULSE 97; RESP 18; O2SAT 97
== END 2016-12-16 11:25 | disposition home or self-care (01) ==
LOC: ED 15:29 → ERH 21:09 → 2RSO 12-12 00:04
PROVIDERS: ADMIT Internal Medicine; ATTEND Hospitalist
DX: K85.20 Alcohol induced acute pancreatitis without necrosis or infection (principal); A04.7 Enterocolitis due to Clostridium difficile; E87.2 Acidosis; E83.42 Hypomagnesemia; F10.239 Alcohol dependence with withdrawal, unspecified; E87.6 Hypokalemia; K64.9 Unspecified hemorrhoids; K59.00 Constipation, unspecified; K04.7 Periapical abscess without sinus; F41.9 Anxiety disorder, unspecified; F17.200 Nicotine dependence, unspecified, uncomplicated; R45.1 Restlessness and agitation; R27.8 Other lack of coordination

== ENCOUNTER 2016-12-16 18:36 | Emergency (ER) | payer MEDICAID ==
[2016-12-16 18:36] VITALS: BMI 23.0
[2016-12-16 18:44] VITALS: BP 118/90; PULSE 119; RESP 18; TEMP 97.9; O2SAT 99
[2016-12-16] MEDS ORDERED: Sodium Chloride 0.9% 1,000 ML IV STA (19:03)
--- NOTE | 2016-12-16 19:23 | ED PDOC ---
Arrival/HPI - General Chief Complaint: Alcohol Ingestion Time Seen by Provider: 12/16/16 18:44 Historian: Patient - History of Present Illness Narrative History of Present Illness (Text): 12/16/16 19:20 41yo male with history of alcohol abuse present with complaint of diffuse abdominal pain, diarrhea and vomiting. Patient was admitted here on 12/11 for similar symptoms and was discharged home this morning. States he started having abdominal pain with diarrhea, vomiting again this afternoon. States he was given Ativan and Librium because he was discharged home and not sure if he was in pain then. He admits to drinking a cup of alcohol cocktail this afternoon. denies hematemesis, melena, hematochezia, chest pain, SOb, diaphoresis, any other complaint. Past Medical History - Provider Review Nursing Documentation Reviewed: Yes - Infectious Disease Hx of Infectious Diseases: None - Reproductive Currently : No - Cardiac Hx Cardiac Disorders: No - Pulmonary Hx Respiratory Disorders: No - Neurological Hx Neurological Disorder: No - HEENT Hx HEENT Disorder: Yes (wears glasses) - Renal Hx Renal Disorder: No - Endocrine/Metabolic Hx Endocrine Disorders: No - Hematological/Oncological Hx Blood Disorders: No - Integumentary Hx Dermatological Disorder: No - Musculoskeletal/Rheumatological Hx Musculoskeletal Disorders: No Hx Falls: No Hx Unsteady Gait: No - Gastrointestinal Hx Hemorrhoids: Yes - Genitourinary/Gynecological Hx Genitourinary Disorders: No - Psychiatric Hx Psychophysiologic Disorder: No Hx Emotional Abuse: No Hx Physical Abuse: No Hx Sexual Abuse: No Hx Substance Use: No - Anesthesia Hx Anesthesia: No Family/Social History - Physician Review Nursing Documentation Reviewed: Yes Family/Social History: Unknown Family HX Smoking Status: Light Smoker < 10 Cigarettes Daily Hx Alcohol Use: Yes Hx Substance Use: No Allergies/Home Meds Allergies/Adverse Reactions: Allergies No Known Allergies Allergy (Verified 12/16/16 18:40) Review of Systems - Physician Review All systems were reviewed & negative as marked: Yes - Review of Systems Constitutional: Normal Eyes: Normal ENT: Normal Respiratory: Normal Cardiovascular: Normal Gastrointestinal: Abdominal Pain, Diarrhea, Nausea, Vomiting. absent: Stool Changes, Constipation, Hematochezia, Hematemesis Genitourinary Male: Normal Musculoskeletal: Normal Skin: Normal Neurological: Normal Endocrine: Normal Hemo/Lymphatic: Normal Psychiatric: Normal Physical Exam Vital Signs Reviewed: Yes Vital Signs Temp Pulse Resp BP Pulse Ox 12/16/16 18:40 97.9 F 119 H 18 118/90 99 Temperature: Afebrile Blood Pressure: Normal Pulse: Tachycardic Respiratory Rate: Normal Appearance: Positive for: Well-Appearing, Non-Toxic, Comfortable Pain Distress: None Mental Status: Positive for: Alert and Oriented X 3 - Systems Exam Head: Present: Atraumatic, Normocephalic Pupils: Present: PERRL Extroacular Muscles: Present: EOMI Conjunctiva: Present: Normal Mouth: Present: Moist Mucous Membranes Neck: Present: Normal Range of Motion Respiratory/Chest: Present: Clear to Auscultation, Good Air Exchange. No: Respiratory Distress, Accessory Muscle Use Cardiovascular: Present: Regular Rate and Rhythm, Normal S1, S2. No: Murmurs Abdomen: Present: Tenderness (Mild diffuse tenderness), Normal Bowel Sounds, Other (Soft). No: Distention, Peritoneal Signs, Rebound, Guarding, McBurney's Point Tender, Rovsing's Sign Present Back: Present: Normal Inspection Upper Extremity: Present: Normal Inspection. No: Cyanosis, Edema Lower Extremity: Present: Normal Inspection. No: Edema Neurological: Present: GCS=15, CN II-XII Intact, Speech Normal Skin: Present: Warm, Dry, Normal Color. No: Rashes Psychiatric: Present: Alert, Oriented x 3, Normal Insight, Normal Concentration Medical Decision Making ED Course and Treatment: 12/17/16 01:17 PT presented to ED for stated history. He had diffuse tenderness on PE. Lab was noted with elevated Lipase. Pain will be re admitted. Pt however signed out AMA. He declined admission, stating he feels better. He understood the explained risk of abscess, sepsis, and still insisted on signing out AMA. He understands that he can come back to the ED if he change his mind. - Lab Interpretations Lab Results: 12/16/16 20:00 12/16/16 20:00 Lab Results 12/16/16 20:00: WBC 6.7, RBC 3.75, Hgb 12.8 L, Hct 36.5 L, MCV 97.3, MCH 34.1, MCHC 35.1, RDW 13.1, Plt Count 205, MPV 9.8, Gran % 60.6, Lymph % (Auto) 26.6, [place] % (Auto) 8.6 H, Eos % (Auto) 3.0, Baso % (Auto) 1.2, Gran # 4.09, Lymph # 1.8, [place] # 0.6, Eos # 0.2, Baso # 0.08, PT 10.7, INR 0.99, APTT 24.3, Sodium 143, Potassium 3.7, Chloride 105, Carbon Dioxide 21, Anion Gap 21 H, BUN 8, Creatinine 0.7, Est GFR ( Amer) > 60, Est GFR (Non-Af Amer) > 60, Random Glucose 88, Calcium 9.5, Total Bilirubin 0.5, AST 80 H, ALT 57 H, Alkaline Phosphatase 55, Total Protein 7.8, Albumin 4.2, Globulin 3.6, Albumin/Globulin Ratio 1.2, Lipase 400 H, Alcohol, Quantitative 169 H - Medication Orders Current Medication Orders: Discontinued Medications Famotidine (Pepcid) 20 mg IVP STAT STA Stop: 12/16/16 19:04 Last Admin: 12/16/16 20:03 Dose: 20 MG IVP Administration Document 12/16/16 20:03 ANABEL (Rec: 12/16/16 20:03 [id number] Charges for Administration # of IVP Administrations 1 Sodium Chloride (Sodium Chloride 0.9%) 1,000 mls @ 1,000 mls/hr IV .Q1H STA Stop: 12/16/16 20:02 Last Admin: 12/16/16 20:00 Dose: 1,000 MLS/HR eMAR Start Stop Document 12/16/16 20:00 ANABEL (Rec: 12/16/16 20:03 [id number]) Intravenous Solution Start Date 12/16/16 Start Time 20:00 End Date 12/16/16 End time 21:00 Total Infusion Time 60 Ondansetron HCl (Zofran Inj) 4 mg IVP STAT STA Stop: 12/16/16 19:04 Last Admin: 12/16/16 20:00 Dose: 4 MG IVP Administration Document 12/16/16 20:00 ANABEL (Rec: 12/16/16 20:03 [id number]) Charges for Administration # of IVP Administrations 1 Disposition/Present on Arrival - Present on Arrival Any Indicators Present on Arrival: No History of DVT/PE: No History of Uncontrolled Diabetes: No Urinary Catheter: No History of Decub. Ulcer: No History Surgical Site Infection Following: None - Disposition Have Diagnosis and Disposition been Completed?: Yes Diagnosis: Pancreatitis, Alcohol abuse Disposition: AGAINST MEDICAL ADVICE Disposition Time: 21:10 Condition: FAIR Referrals: Loren Butler, [Primary Care Provider] - Follow up with primary
[2016-12-16 20:23] LABS: ADD MANUAL DIFF? NO
[2016-12-16 20:30] LABS: BASO # 0.08 K/mm3 (0.0-2.0); BASO % 1.2 % (0.0-3.0); EOS # 0.2 (0.0-0.7); GRAN # 4.09 (1.4-6.5); GRAN % 60.6 % (50.0-68.0); HEMATOCRIT 36.5 % (42.0-52.0); LYMPH # 1.8 (1.2-3.4); LYMPH % 26.6 % (22.0-35.0); MEAN CELL VOLUME 97.3 fL (80.0-105.0); MEAN CORPUSCULAR HEMOGLOBIN 34.1 pg (25.0-35.0); MEAN CORPUSCULAR HGB CONC 35.1 g/dl (31.0-37.0); MEAN PLATELET VOLUME 9.8 fl (7.0-11.0); MONO # 0.6 (0.1-0.6); MONO % 8.6 % (1.0-6.0); PLATELET COUNT 205 10^3/uL (120.0-450.0); RED CELL DISTRIBUTION WIDTH 13.1 % (11.5-14.5); WHITE BLOOD COUNT 6.7 10^3/ul (4.5-11.0)
[2016-12-16 20:41] LABS: INR 0.99 (0.93-1.08); PARTIAL THROMBOPLASTIN TIME 24.3 Seconds (23.7-30.8)
[2016-12-16 20:42] LABS: ALB/GLOB RATIO 1.2 (1.1-1.8); ALKALINE PHOSPHATASE 55 U/L (38-133); ALT/SGPT 57 U/L (7-56); AST/SGOT 80 U/L (15-59); BILIRUBIN,TOTAL 0.5 mg/dL (0.2-1.3); BLOOD UREA NITROGEN 8 mg/dL (7-21); CALCIUM 9.5 mg/dL (8.4-10.5); CARBON DIOXIDE 21 mmol/L (21-33); CHLORIDE 105 mmol/L (98-107); GFR AFRICAN-AMERICAN > 60; GLUCOSE,RANDOM 88 mg/dL (70-110); LIPASE 400 U/L (23-300); POTASSIUM 3.7 mmol/L (3.6-5.0); SODIUM 143 mmol/L (132-148); TOTAL PROTEIN 7.8 g/dL (5.8-8.3)
== END 2016-12-16 21:15 | disposition left against medical advice (07) ==
LOC: ED 18:36
DX: K85.90 Acute pancreatitis without necrosis or infection, unspecified (principal); F10.10 Alcohol abuse, uncomplicated; Y90.6 Blood alcohol level of 120-199 mg/100 ml
CPT/HCPCS: 80053; 80320; 83690; 85025; 85610; 85730; 96361; 96374; 96375; 99284; J2405; J7040

== ENCOUNTER 2016-12-31 09:08 | Observation (INO) | payer MEDICAID ==
[2016-12-31 09:25] VITALS: BMI 22.3
[2016-12-31 09:31] VITALS: TEMP 98
[2016-12-31] MEDS ORDERED: Sodium Chloride 0.9% 1,000 ML IV STA (09:43)
[2016-12-31] MEDS ORDERED: Folic Acid 1 MG, Thiamine 100 MG, Multivitamin (MVI) 10 ML in Dextrose 5% In Water 1,00... IV SCH (09:45)
--- NOTE | 2016-12-31 09:47 | ED PDOC ---
Arrival/HPI - General Chief Complaint: Abdominal Pain Time Seen by Provider: 12/31/16 09:15 Historian: Patient - History of Present Illness Narrative History of Present Illness (Text): 12/31/16 09:42 A 41 year old male, whose past medical history includes pancreatitis, presents to the emergency department complaining of generalized weakness for the past few days. Patient notes abdominal pain, which feels like his previous pancreatitis symptom. Patient denies any fever, nausea, vomiting, diarrhea, chest pain, shortness of breath or any other complaints. Patients last alcoholic drink was last night. Time/Duration: Other (few days) Symptom Course: Unchanged Quality: Other Context: Other Past Medical History - Provider Review Nursing Documentation Reviewed: Yes - Infectious Disease Hx of Infectious Diseases: None - Reproductive Currently : No - Cardiac Hx Cardiac Disorders: No - Pulmonary Hx Respiratory Disorders: No - Neurological Hx Neurological Disorder: No - HEENT Hx HEENT Disorder: Yes (wears glasses) - Renal Hx Renal Disorder: No - Endocrine/Metabolic Hx Endocrine Disorders: No - Hematological/Oncological Hx Blood Disorders: No - Integumentary Hx Dermatological Disorder: No - Musculoskeletal/Rheumatological Hx Musculoskeletal Disorders: No Hx Falls: No Hx Unsteady Gait: No - Gastrointestinal Hx Gastrointestinal Disorders: Yes Hx Hemorrhoids: Yes Hx Pancreatitis: Yes - Genitourinary/Gynecological Hx Genitourinary Disorders: No - Psychiatric Hx Psychophysiologic Disorder: No Hx Emotional Abuse: No Hx Physical Abuse: No Hx Sexual Abuse: No Hx Substance Use: No - Anesthesia Hx Anesthesia: No Family/Social History - Physician Review Nursing Documentation Reviewed: Yes Family/Social History: No Known Family HX Smoking Status: Light Smoker < 10 Cigarettes Daily Hx Alcohol Use: Yes Frequency of alcohol use: Daily Hx Substance Use: No Allergies/Home Meds Allergies/Adverse Reactions: Allergies No Known Allergies Allergy (Verified 12/31/16 09:24) Physical Exam - Physical Exam Narrative Physical Exam (Text): - Review of Systems Constitutional: (+) Generalized weakness absent: Weight Change, Fevers Eyes: Normal ENT: Normal Respiratory: Normal absent: SOB, Cough, Sputum Cardiovascular: Normal absent: Chest pain, Palpitations, Syncope Gastrointestinal: (+) Abdominal pain absent: Diarrhea, Nausea, Vomiting Genitourinary: Normal. absent: Dysuria, Frequency, Hematuria Musculoskeletal: Normal. absent: Arthralgias, Back Pain, Neck Pain Skin: Normal Neurological: Normal absent: Focal Weakness Endocrine: Normal Hemo/Lymphatic: Normal Psychiatric: Normal - Physical exam Patient appears age appropriate, speaking full sentences without difficulty - Systems Exam Head: Present: Atraumatic, Normocephalic Pupils: Present: PERRL Extraocular Muscles: Present: EOMI Conjunctiva: Present: Normal Mouth: Present: Moist Mucous Membranes Neck: Present: Normal Range of Motion. No: MIDLINE TENDERNESS, Paraspinal Tenderness Respiratory/Chest: Present: Clear to Auscultation, Good Air Exchange. No: Respiratory Distress, Accessory Muscle Use, Tachypneic Cardiovascular: Present: Regular Rate and Rhythm, Normal S1, S2, Peripheral Pulses Present. No: Murmurs Abdomen: Present: Normal Bowel Sounds, No: Tenderness, Peritoneal Signs, Rebound, Guarding, Distention Back: Present: Normal Inspection. No: Midline Tenderness, Paraspinal Tenderness Upper Extremity: Present: Normal Inspection. No: Cyanosis, Edema Lower Extremity: Present: Normal Inspection. No: Edema Neurological: Present: GCS=15, Speech Normal, cranial nerves II through XII fully intact with no cerebellar abnormality, neuro-sensory fully intact. No focal neurological deficits. Skin: Present: Warm, Dry, Normal Color. No: Rashes Lymphatic: Present: OX3, NI, NC Psychiatric: Present: Alert, Oriented x 3, Normal Insight, Normal Concentration Vital Signs Reviewed: Yes Vital Signs Temp Pulse Resp BP Pulse Ox 12/31/16 13:54 99 H 20 100 12/31/16 11:08 105 H 18 130/90 98 12/31/16 09:30 98 F 98 H 16 143/87 97 Temperature: Afebrile Blood Pressure: Normal Pulse: Tachycardic Respiratory Rate: Normal Appearance: Positive for: Well-Appearing, Non-Toxic, Comfortable Pain Distress: None Mental Status: Positive for: Alert and Oriented X 3 Medical Decision Making ED Course and Treatment: 12/31/16 09:42 Impression: A 41 year old male with generalized weakness. Patient notes abdominal pain, which feels like his previous pancreatitis symptoms. Physical exam unremarkable. Plan: -- Labs -- Urinalysis -- Ativan, Banana Bag and IV fluids -- Reassess and disposition Prior Visits: Notes and results from previous visits were reviewed. Patient was admitted to the hospital on 12/16/16 for pancreatitis. - Lab Interpretations Lab Results: 12/31/16 10:15 12/31/16 10:15 Lab Results 12/31/16 10:15: WBC 6.4, RBC 4.16, Hgb 14.2, Hct 40.1 L, MCV 96.4, MCH 34.1, MCHC 35.4, RDW 13.7, Plt Count 271, MPV 10.8, Gran % 30.8 L, Lymph % (Auto) 42.6 H, King % (Auto) 12.3 H, Eos % (Auto) 12.9 H, Baso % (Auto) 1.4, Gran # 1.96, Lymph # 2.7, King # 0.8 H, Eos # 0.8 H, Baso # 0.09, PT 10.3, INR 0.95, APTT 25.2, Sodium 146, Potassium 3.4 L, Chloride 108 H, Carbon Dioxide 25, Anion Gap 16, BUN 4 L, Creatinine 0.6, Est GFR ( Amer) > 60, Est GFR (Non -Af Amer) > 60, Random Glucose 93, Calcium 8.8, Total Bilirubin 0.5, AST 58, ALT 49, Alkaline Phosphatase 69, Total Protein 7.4, Albumin 3.9, Globulin 3.5, Albumin/Globulin Ratio 1.1, Lipase 407 H, Alcohol, Quantitative 377 H* I have reviewed the lab results: Yes - Medication Orders Current Medication Orders: Folic Acid 1 mg/ Thiamine HCl 100 mg/ Multivitamins/Vitamin C 10 ml/ Dextrose 1 ,011.2 mls @ 100 mls/hr IV .Q10H7M [facility] Last Admin: 12/31/16 10:35 Dose: 100 MLS/HR eMAR Start Stop Document 12/31/16 10:35 TA (Rec: 12/31/16 10:55 TA [id number]) Intravenous Solution Start Date 12/31/16 Start Time 09:45 Discontinued Medications Chlordiazepoxide (Librium) 50 mg PO Q8 STA PRN Reason: Protocol Stop: 12/31/16 14:10 Sodium Chloride (Sodium Chloride 0.9%) 1,000 mls @ 1,000 mls/hr IV .Q1H STA Stop: 12/31/16 10:42 Last Admin: 12/31/16 10:21 Dose: 1,000 MLS/HR eMAR Start Stop Document 12/31/16 10:21 TA (Rec: 12/31/16 10:21 TA [id number]) Intravenous Solution Start Date 12/31/16 Start Time 10:21 Potassium Chloride (Potassium Chloride 20 Meq/100 Ml) 100 mls @ 50 mls/hr IVPB ONCE ONE Stop: 12/31/16 12:52 Last Admin: 12/31/16 12:24 Dose: 50 MLS/HR eMAR Start Stop Document 12/31/16 12:24 TA (Rec: 12/31/16 12:24 TA [id number]) Intravenous Solution Start Date 12/31/16 Start Time 12:24 Magnesium Sulfate/Dextrose (Magnesium Sulfate 1 Gm/100 Ml D5w) 100 mls @ 100 mls/hr IVPB ONCE ONE Stop: 12/31/16 11:52 Last Admin: 12/31/16 11:08 Dose: 100 MLS/HR eMAR Start Stop Document 12/31/16 11:08 TA (Rec: 12/31/16 11:08 TA [id number]) Intravenous Solution Start Date 12/31/16 Start Time 11:00 Lorazepam (Ativan) 2 mg IVP ONCE ONE Stop: 12/31/16 09:44 Last Admin: 12/31/16 10:21 Dose: 2 MG IVP Administration Document 12/31/16 10:21 TA (Rec: 12/31/16 10:21 TA [id number]) Charges for Administration # of IVP Administrations 1 ED OBSERVATION Discharge: Yes Date of observation admission: 12/31/16 Time of observation admission: 10:54 - Observation admission statement Patient is being placed in observation because:: Alcohol intoxication - Goals of Observation Goals of observation are:: Monitor and treat symptoms, sobriety - Progress Note Progress Note: 12/31/16 10:54 A 41 year old male with generalized weakness and abdominal pain. Patients last alcoholic drink was yesterday night. Patient has an alcohol level of 377. 12/31/16 12:50 Patient resting comfortably, in no acute distress. 12/31/16 14:48 Pt has been closely monitored throughout the stay in the ED. Currently pt is ANOx3 to person, place, and time. Has good insight and judgment. Denies suicidal or homicidal ideations. Pt has steady gait, ambulates without difficulty, not slurring speech. Pt able to tolerate PO without any difficulty. Patient denies any complaints at this time. Patient is not tremulous, not tachycardic, no signs or symptoms of alcohol withdrawal. On reevaluation, patient reports that he feels much better and would like to be discharged home. Patient's repeat abdominal exam is soft, nontender, non distended with positive bowel sounds in all 4 quadrants and no peritoneal signs. Patient is tolerating PO without any difficulty. Pt states he understands to return to the ER right away for new or worsening symptoms or for inability to f/u with PMD or specialist as instructed. Patient states that he fully agrees with and understands discharge instructions. States that he agrees with the plan and disposition. Verbalized and repeated discharge instructions and plan. I have given the patient opportunity to ask any additional questions. - Scribe Statement The provider has reviewed the documentation as recorded by the Allyibjacob Jessica Provider Scribe Attestation: All medical record entries made by the Scribe were at my direction and personally dictated by me. I have reviewed the chart and agree that the record accurately reflects my personal performance of the history, physical exam, medical decision making, and the department course for this patient. I have also personally directed, reviewed, and agree with the discharge instructions and disposition. Disposition/Present on Arrival - Present on Arrival Any Indicators Present on Arrival: No History of DVT/PE: No History of Uncontrolled Diabetes: No Urinary Catheter: No History of Decub. Ulcer: No History Surgical Site Infection Following: None - Disposition Have Diagnosis and Disposition been Completed?: Yes Diagnosis: Alcoholic intoxication, Abdominal pain Disposition: HOME/ ROUTINE Disposition Time: 10:54 Patient Plan: Discharge Condition: GOOD
[2016-12-31 10:23] LABS: ADD MANUAL DIFF? NO
[2016-12-31 10:26] LABS: BASO # 0.09 K/mm3 (0.0-2.0); BASO % 1.4 % (0.0-3.0); EOS # 0.8 (0.0-0.7); EOS % 12.9 % (1.5-5.0); GRAN # 1.96 (1.4-6.5); GRAN % 30.8 % (50.0-68.0); HEMATOCRIT 40.1 % (42.0-52.0); LYMPH # 2.7 (1.2-3.4); LYMPH % 42.6 % (22.0-35.0); MEAN CELL VOLUME 96.4 fL (80.0-105.0); MEAN CORPUSCULAR HEMOGLOBIN 34.1 pg (25.0-35.0); MEAN CORPUSCULAR HGB CONC 35.4 g/dl (31.0-37.0); MEAN PLATELET VOLUME 10.8 fl (7.0-11.0); MONO # 0.8 (0.1-0.6); MONO % 12.3 % (1.0-6.0); PLATELET COUNT 271 10^3/uL (120.0-450.0); RED CELL DISTRIBUTION WIDTH 13.7 % (11.5-14.5); WHITE BLOOD COUNT 6.4 10^3/ul (4.5-11.0)
[2016-12-31 10:37] LABS: ALB/GLOB RATIO 1.1 (1.1-1.8); ALKALINE PHOSPHATASE 69 U/L (38-133); ALT/SGPT 49 U/L (7-56); AST/SGOT 58 U/L (15-59); BILIRUBIN,TOTAL 0.5 mg/dL (0.2-1.3); BLOOD UREA NITROGEN 4 mg/dL (7-21); CALCIUM 8.8 mg/dL (8.4-10.5); CARBON DIOXIDE 25 mmol/L (21-33); CHLORIDE 108 mmol/L (98-107); GFR AFRICAN-AMERICAN > 60; GLUCOSE,RANDOM 93 mg/dL (70-110); LIPASE 407 U/L (23-300); POTASSIUM 3.4 mmol/L (3.6-5.0); SODIUM 146 mmol/L (132-148); TOTAL PROTEIN 7.4 g/dL (5.8-8.3)
[2016-12-31 10:39] LABS: INR 0.95 (0.93-1.08); PARTIAL THROMBOPLASTIN TIME 25.2 Seconds (23.7-30.8)
[2016-12-31] MEDS ORDERED: Potassium Chloride 20 mEq 100 ML IVPB ONE (10:53)
--- NOTE | 2016-12-31 11:35 | CARD ---
APPROVED REPORT EKG Measurement Heart [id number] <Conclusion> Normal sinus rhythm Septal infarct, age undetermined LAD NSSTW changes Q in 3 No change
[2016-12-31 12:53] VITALS: BP 130/90
[2016-12-31 13:55] VITALS: PULSE 99; RESP 20; O2SAT 100
== END 2016-12-31 14:50 | disposition home or self-care (01) ==
LOC: ED 09:08 → EROBSV 10:54
PROVIDERS: ADMIT Emergency Medicine; ATTEND Emergency Medicine
DX: R10.9 Unspecified abdominal pain (principal); F10.129 Alcohol abuse with intoxication, unspecified; Y90.8 Blood alcohol level of 240 mg/100 ml or more
CPT/HCPCS: 80053; 80320; 83690; 85025; 85610; 85730; 93005; 96374; 99284; G0378; J2060; J3411; J3475; J3480; J7040; J7070

== ENCOUNTER 2017-01-05 01:13 | Emergency (ER) | payer MEDICAID ==
[2017-01-05 01:13] VITALS: BMI 22.3
[2017-01-05] MEDS ORDERED: Multivitamin (MVI) 10 ML, Thiamine 100 MG, Folic Acid 1 MG in Sodium Chloride 0.9% 1,00... IV ONE (01:28)
--- NOTE | 2017-01-05 01:31 | ED PDOC ---
Arrival/HPI - History of Present Illness Symptom Onset: Gradual Symptom Course: Intermittent <Antoinette Ziegler - Last Filed: 01/05/17 04:55> <Yves Payne - Last Filed: 01/05/17 05:34> - General Chief Complaint: Dizziness/Lightheaded Time Seen by Provider: 01/05/17 01:15 - History of Present Illness Narrative History of Present Illness (Text): 01/05/17 01:30 41 yo M w h/o alcoholism, EtOH-induced pancreatitis, tobacco and drug abuse presents with dizziness since this morning upon waking from sleep. Patient states he felt like he was going to fall but denies any falls, loss of consciousness, headache, fevers, chill, CP, SOB, n/v/d/c States his last drink was last night. Patient is a poor historian, states "I am just a sick puppy, I would rather not be here." Patient admits to decreased appetite for the past 2 days. (Antoinette Ziegler) Past Medical History - Provider Review Nursing Documentation Reviewed: Yes - Travel History Have you recently traveled outside [place] w/in the past 3 mons?: No - Infectious Disease Hx of Infectious Diseases: C.diff (Antigen +, toxin -) - Reproductive Currently : No - Cardiac Hx Cardiac Disorders: No - Pulmonary Hx Respiratory Disorders: No - Neurological Hx Neurological Disorder: No - HEENT Hx HEENT Disorder: Yes (wears glasses) - Renal Hx Renal Disorder: No - Endocrine/Metabolic Hx Endocrine Disorders: No - Hematological/Oncological Hx Blood Disorders: No - Integumentary Hx Dermatological Disorder: No - Musculoskeletal/Rheumatological Hx Musculoskeletal Disorders: No Hx Falls: No Hx Unsteady Gait: No - Gastrointestinal Hx Gastrointestinal Disorders: Yes Hx Hemorrhoids: Yes Hx Pancreatitis: Yes - Genitourinary/Gynecological Hx Genitourinary Disorders: No - Psychiatric Hx Psychophysiologic Disorder: No Hx Emotional Abuse: No Hx Physical Abuse: No Hx Sexual Abuse: No Hx Substance Use: No - Anesthesia Hx Anesthesia: No <Antoinette Ziegler - Last Filed: 01/05/17 04:55> Family/Social History - Physician Review Nursing Documentation Reviewed: Yes Family/Social History: CVA/TIA, Diabetes, Hypertension, CAD/[place] Smoking Status: Heavy Smoker > 10 Cigarettes Daily Hx Alcohol Use: Yes (vodka) Frequency of alcohol use: Daily Hx Substance Use: No <Antoinette Ziegler - Last Filed: 01/05/17 04:55> Allergies/Home Meds <Antoinette Ziegler - Last Filed: 01/05/17 04:55> <Yves Payne - Last Filed: 01/05/17 05:34> Allergies/Adverse Reactions: Allergies No Known Allergies Allergy (Verified 01/05/17 01:20) Review of Systems - Physician Review All systems were reviewed & negative as marked: Yes - Review of Systems Systems not reviewed;Unavailable: Other (poor historian) Constitutional: absent: Fatigue, Fevers Eyes: Normal. absent: Vision Changes ENT: absent: Tinnitus, TMJ Pain, Rhinorrhea Respiratory: absent: Cough, Sputum Cardiovascular: absent: Chest Pain, Palpitations, Edema, Orthopnea, Syncope Gastrointestinal: Abdominal Pain (mild, epigastric), Appetite Changes ( decreased x 2 days). absent: Stool Changes, Constipation, Diarrhea, Nausea, Vomiting, Hematochezia, Hematemesis Genitourinary Male: absent: Dysuria, Frequency, Hematuria Musculoskeletal: Normal. absent: Arthralgias Skin: absent: Rash, Skin Lesions Neurological: Dizziness. absent: Headache Hemo/Lymphatic: absent: Adenopathy <Antoinette Ziegler - Last Filed: 01/05/17 04:55> Physical Exam Temperature: Afebrile Blood Pressure: Normal Pulse: Regular (102) Respiratory Rate: Normal Appearance: Positive for: Well-Appearing, Non-Toxic, Comfortable Pain Distress: None Mental Status: Positive for: Alert and Oriented X 3 - Systems Exam Head: Present: Atraumatic, Normocephalic Pupils: Present: PERRL Extroacular Muscles: Present: EOMI Conjunctiva: No: Icteric Mouth: Present: Dry. No: Normal Teeth (poor dentition ) Neck: Present: Normal Range of Motion. No: Meningeal Signs, JVD Respiratory/Chest: Present: Clear to Auscultation. No: Respiratory Distress, Accessory Muscle Use, Rales, Rhonchi Cardiovascular: Present: Regular Rate and Rhythm, Normal S1, S2 Abdomen: Present: Tenderness (mild epigastric TTP), Normal Bowel Sounds. No: Distention, Peritoneal Signs Upper Extremity: Present: Normal Inspection. No: Cyanosis, Edema Lower Extremity: Present: Normal Inspection. No: Edema, CALF TENDERNESS Neurological: Present: GCS=15, CN II-XII Intact. No: Speech Normal (slowed speech) Skin: Present: Warm, Dry, Normal Color. No: Rashes Psychiatric: Present: Alert, Oriented x 3. No: Normal Affect (flat affect) <ToneyAntoinette - Last Filed: 01/05/17 04:55> Vital Signs Temp Pulse Resp BP Pulse Ox 01/05/17 04:40 98.6 F 88 18 131/92 H 97 01/05/17 01:37 97.3 F L 102 H 16 127/91 H 96 Medical Decision Making Re-evaluation Time: 02:54 Reassessment Condition: Unchanged - Lab Interpretations I have reviewed the lab results: Yes - RAD Interpretation Ct Mri Technologist: Radiologist - EKG Interpretation Interpreted by ED Physician: Yes Type: 12 lead EKG <ToneyAntoinette - Last Filed: 01/05/17 04:55> <Yves Payne - Last Filed: 01/05/17 05:34> ED Course and Treatment: 01/05/17 01:54 41 yo M w long-standing h/o EtOH, tobacco, cocaine abuse presents with dizziness since this morning. Labs, UDS, EtOH level, CT head. Librium, pepcid, banana bag. 01/05/17 02:54 Upon re-evaluation, patient states his dizziness has not worsened. Denies any abdominal pain, no TTP. 01/05/17 04:04 Patient states he wants to go outside for "a minute of fresh air." Explained to patient he cannot leave as he is intoxicated. He is currently slightly anxious. 1mg IV ativan, nicoderm CQ. 01/05/17 04:[address] Hood, accepts patient for observation, near-syncope workup. Resident informed of admission. (Antoinette Ziegler) 01/05/17 05:27 Patient seen and evaluated with resident. Agree with HPI, clinical findings, plan and treatment. Patient is a 41 year old male who presents to the emergency department complaining of dizziness and near syncopal episode. Case discussed with kalyani Kirby md, who accepts patient under hospitalist service to remote telemetry for observation for near syncope episode. (Yves Payne) - Lab Interpretations Lab Results: 01/05/17 02:07 01/05/17 02:07 Lab Results 01/05/17 02:54: Urine Opiates Screen Negative, Urine Methadone Screen Negative, Ur Barbiturates Screen Negative, Ur Phencyclidine Scrn Negative, Ur Amphetamines Screen Negative, U Benzodiazepines Scrn Positive H, U Oth Cocaine Metabols Negative, U Cannabinoids Screen Negative 01/05/17 02:07: WBC 5.9, RBC 4.06, Hgb 13.9 L, Hct 38.9 L, MCV 95.8, MCH 34.2, MCHC 35.7, RDW 13.1, Plt Count 161, MPV 8.8, Neutrophils % (Manual) 37 L, Lymphocytes % (Manual) 48 H, Atypical Lymphs % 2 H, Monocytes % (Manual) 7 H, Eosinophils % (Manual) 5 H, Basophils % (Manual) 1, Platelet Evaluation Normal, PT 9.9, INR 0.92 L, Sodium 146, Potassium 3.4 L, Chloride 107, Carbon Dioxide 25 , Anion Gap 17, BUN 6 L, Creatinine 0.6, Est GFR ( Amer) > 60, Est GFR ( Non-Af Amer) > 60, Random Glucose 100, Calcium 8.9, Total Bilirubin 0.6, AST 74 H, ALT 35, Alkaline Phosphatase 69, Total Protein 7.3, Albumin 4.0, Globulin 3.2 , Albumin/Globulin Ratio 1.2, Lipase 405 H, Alcohol, Quantitative 254 H - RAD Interpretation Narrative RAD Interpretations (Text): 01/05/17 02:49 CT head without contrast - No acute intracranial findings (Antoinette Ziegler) Radiology Orders: 01/05/17 01:28 HEAD W/O CONTRAST [CT] Stat - EKG Interpretation EKG Interpretation (Text): 01/05/17 04:55 NSR, normal intervals, no acute ischemic changes. No change vs 12/31 EKG (Antoinette Ziegler) - Medication Orders Current Medication Orders: Chlordiazepoxide (Librium) 25 mg PO Q8 PAIGE PRN Reason: Protocol Enoxaparin Sodium (Lovenox) 40 mg SC DAILY PAIGE PRN Reason: Protocol Multivitamins/Vitamin C 10 ml/Thiamine HCl 100 mg/ Folic Acid 1 mg/ Sodium Chloride 1,011.2 mls @ 100 mls/hr IV .Q10H7M ONE Stop: 01/05/17 11:34 Last Admin: 01/05/17 02:49 Dose: 100 MLS/HR eMAR Start Stop Document 01/05/17 02:49 NAY (Rec: 01/05/17 02:50 [place] [id number]) Intravenous Solution Start Date 01/05/17 Start Time 02:49 End Date 01/05/17 End time 12:49 Total Infusion Time 600 Potassium Chloride (Potassium Chloride 10 Meq/100 Ml) 100 mls @ 100 mls/hr IVPB Q2H PAIGE Stop: 01/05/17 08:29 Lorazepam (Ativan) 2 mg IVP Q4 PRN; Protocol PRN Reason: Symptoms of alcohol withdrawl Nicotine (Nicoderm Cq) 1 patch TD DAILY PRN PRN Reason: URGE TO SMOKE Pantoprazole Sodium (Protonix Inj) 40 mg IVP DAILY PAIGE Discontinued Medications Chlordiazepoxide (Librium) 10 mg PO STAT STA PRN Reason: Protocol Stop: 01/05/17 01:33 Last Admin: 01/05/17 02:22 Dose: 10 MG Behavioural Document 01/05/17 02:22 NAY (Rec: 01/05/17 02:22 [place] [id number]) Maintenance Maintenance Dose Yes Nonmedicinal Nonmedicinal Interventions Therapeutic Communication Behavior Behavior for Medication: Anxiety Famotidine (Pepcid) 20 mg IVP STAT STA Stop: 01/05/17 01:33 Last Admin: 01/05/17 02:22 Dose: 20 MG IVP Administration Document 01/05/17 02:22 NAY (Rec: 01/05/17 02:22 [place] [id number]) Charges for Administration # of IVP Administrations 1 Lorazepam (Ativan) 1 mg IVP ONCE ONE PRN Reason: Protocol Stop: 01/05/17 04:17 Last Admin: 01/05/17 04:39 Dose: 1 MG Behavioural Document 01/05/17 04:39 SRE (Rec: 01/05/17 04:40 SRE [id number]) Maintenance Maintenance Dose No Nonmedicinal Nonmedicinal Interventions See nurse's notes Behavior Behavior for Medication: Anxiety IVP Administration Document 01/05/17 04:39 SRE (Rec: 01/05/17 04:40 SRE [id number]) Charges for Administration # of IVP Administrations 1 Nicotine (Nicoderm Cq) 1 patch TD ONCE ONE Stop: 01/05/17 04:16 Last Admin: 01/05/17 04:39 Dose: 1 PATCH MAR Patch Placement/Removal Document 01/05/17 04:39 SRE (Rec: 01/05/17 04:39 SRE [id number]) Patch Removal Removal of previous patch done No Patch Placement Left, Right or Bilateral Left Upper or Lower Upper Pain Location Body Site Arm Potassium Chloride (K-Dur 20 Meq Er Tab) 20 meq PO STAT STA Stop: 01/05/17 02:51 Last Admin: 01/05/17 03:29 Dose: 20 MEQ <Antoinette Ziegler - Last Filed: 01/05/17 04:55> - PA / WEB DATABASE DEVELOPER / Resident Statement / has reviewed & agrees with the documentation as recorded. / has examined the patient and agrees with the treatment plan. <Yves Payne - Last Filed: 01/05/17 05:34> - Scribe Statement Jessica Soares All medical record entries made by the Scribe were at my direction and personally dictated by me. I have reviewed the chart and agree that the record accurately reflects my personal performance of the history, physical exam, medical decision making, and the department course for this patient. I have also personally directed, reviewed, and agree with the discharge instructions and disposition. (Yves Payne) Disposition/Present on Arrival - Present on Arrival Any Indicators Present on Arrival: No History of DVT/PE: No History of Uncontrolled Diabetes: No Urinary Catheter: No History of Decub. Ulcer: No History Surgical Site Infection Following: None - Disposition Have Diagnosis and Disposition been Completed?: Yes Disposition Time: 04:15 <Antoinette Ziegler - Last Filed: 01/05/17 04:55> <Yves Payne - Last Filed: 01/05/17 05:34> - Disposition Diagnosis: Near syncope, Dizziness, Alcohol intoxication Disposition: HOSPITALIZED Patient Problems: Current Active Problems Problem Status Diagnosed Alcohol intoxication Acute Dizziness Acute Near syncope Acute Condition: FAIR
[2017-01-05 02:33] LABS: HEMATOCRIT 38.9 % (42.0-52.0); MEAN CELL VOLUME 95.8 fL (80.0-105.0); MEAN CORPUSCULAR HEMOGLOBIN 34.2 pg (25.0-35.0); MEAN CORPUSCULAR HGB CONC 35.7 g/dl (31.0-37.0); MEAN PLATELET VOLUME 8.8 fl (7.0-11.0); PLATELET COUNT 161 10^3/uL (120.0-450.0); RED CELL DISTRIBUTION WIDTH 13.1 % (11.5-14.5); WHITE BLOOD COUNT 5.9 10^3/ul (4.5-11.0)
[2017-01-05 02:34] LABS: ALB/GLOB RATIO 1.2 (1.1-1.8); ALKALINE PHOSPHATASE 69 U/L (38-133); ALT/SGPT 35 U/L (7-56); AST/SGOT 74 U/L (15-59); BILIRUBIN,TOTAL 0.6 mg/dL (0.2-1.3); BLOOD UREA NITROGEN 6 mg/dL (7-21); CALCIUM 8.9 mg/dL (8.4-10.5); CARBON DIOXIDE 25 mmol/L (21-33); CHLORIDE 107 mmol/L (95-110); GFR AFRICAN-AMERICAN > 60; GLUCOSE,RANDOM 100 mg/dL (70-110); LIPASE 405 U/L (23-300); POTASSIUM 3.4 mmol/L (3.6-5.0); SODIUM 146 mmol/L (132-148); TOTAL PROTEIN 7.3 g/dL (5.8-8.3)
[2017-01-05 02:45] LABS: ADD MANUAL DIFF? YES
--- NOTE | 2017-01-05 02:48 | CT ---
EXAM: CT Head Without Intravenous Contrast CLINICAL HISTORY: 41 years old, male; Signs and symptoms; Dizziness; Additional info: Dizzy TECHNIQUE: Axial computed tomography images of the head/brain without intravenous contrast. This CT exam was performed using one or more of the following dose reduction techniques: automated exposure control, adjustment of the mA and/or kV according to patient size, and/or use of iterative reconstruction technique. COMPARISON: No relevant prior studies available. FINDINGS: Brain: No acute intracranial hemorrhage. No significant white matter disease. No edema. Ventricles: No significant ventriculomegaly. Bones: No acute displaced fracture. Sinuses: Unremarkable as visualized. No acute sinusitis. Mastoid air cells: Unremarkable as visualized. No mastoid effusion. IMPRESSION: No acute intracranial hemorrhage, or suspicious mass effect.
[2017-01-05] MEDS ORDERED: Potassium Chloride 20 mEq ER Tab PO STA (02:50)
[2017-01-05 03:07] LABS: INR 0.92 (0.93-1.08)
[2017-01-05 03:10] LABS: ATYPICAL LYMPHOCYTE 2 % (0.0-0.0); NEUTROPHIL 37 % (50.0-70.0)
[2017-01-05 03:11] LABS: BASOPHIL 1 % (0.0-1.0); EOSINOPHIL 5 % (0.0-3.0); PLATELET ESTIMATE NORMAL (NORMAL)
[2017-01-05 04:41] VITALS: RESP 18
[2017-01-05] MEDS ORDERED: Potassium Chloride 10 mEq 100 ML IVPB SCH (05:30)
--- NOTE | 2017-01-05 06:21 | CP.PCM.HP ---
<Denny Ahmadi - Last Filed: 01/05/17 06:51> History of Present Illness - History of Present Illness History of Present Illness: 41 M with PMHx of polysubstance abuse, chronic alcoholic pancreatitis and internal hemmroids presents to [facility] with complaints of dizziness and near syncopal episodes. Pt reports that for the past three days he has been experiencing near syncopal episodes as he tries to get up from sitting/laying down. He feels as if the room is spinning and loses his balance. He has fallen on his buttocks "a couple of times". However, pt denies ever losing consciousness. He admits to drinking 750ml of vodka daily. He last drank last night. He admits to diffuse abdominal pain, exacerbated by palpation. He denied fever, chills, sob, chest pains, palpitations, n/v/d/c or urinary symptoms PMHx: As above PSHx: appointment at [facility] for hemmroid banding Famhx: Noncontributory SHx: 1/2ppd x 20yrs, 750ml vodka daily, hx of cocaine, heroin quit 5 yrs ago meds: MAR reviewed Allergies: NKDA Present on Admission - Present on Admission Any Indicators Present on Admission: No History of DVT/PE: No History of Uncontrolled Diabetes: No Urinary Catheter: No Decubitus Ulcer Present: No Review of Systems - Review of Systems Review of Systems: as per HPI otherwise Negative Past Patient History - Infectious Disease Hx of Infectious Diseases: C.diff (Antigen +, toxin -) - Past Social History Smoking Status: Heavy Smoker > 10 Cigarettes Daily - CARDIAC Hx Cardiac Disorders: No - PULMONARY Hx Respiratory Disorders: No - NEUROLOGICAL Hx Neurological Disorder: No - HEENT Hx HEENT Problems: Yes (wears glasses) - RENAL Hx Chronic Kidney Disease: No - ENDOCRINE/METABOLIC Hx Endocrine Disorders: No - HEMATOLOGICAL/ONCOLOGICAL Hx Blood Disorders: No - INTEGUMENTARY Hx Dermatological Problems: No - MUSCULOSKELETAL/RHEUMATOLOGICAL Hx Musculoskeletal Disorders: No Hx Falls: No Hx Unsteady Gait: No - GASTROINTESTINAL Hx Gastrointestinal Disorders: Yes Hx Hemorrhoids: Yes Hx Pancreatitis: Yes - GENITOURINARY/GYNECOLOGICAL Hx Genitourinary Disorders: No - PSYCHIATRIC Hx Psychophysiologic Disorder: No Hx Emotional Abuse: No Hx Physical Abuse: No Hx Sexual Abuse: No Hx Substance Use: No - SURGICAL HISTORY Hx Surgeries: No - ANESTHESIA Hx Anesthesia: No Meds Allergies/Adverse Reactions: Allergies Allergy/AdvReac Type Severity Reaction Status Date / Time No Known Allergies Allergy Verified 01/05/17 01:20 Physical Exam - Constitutional Appears: No Acute Distress, Unkempt - Head Exam Head Exam: ATRAUMATIC, NORMAL INSPECTION, NORMOCEPHALIC - Eye Exam Eye Exam: EOMI, Normal appearance, PERRL Pupil Exam: NORMAL ACCOMODATION, PERRL - ENT Exam ENT Exam: Mucous Membranes Dry - Neck Exam Neck exam: Positive for: Normal Inspection - Respiratory Exam Respiratory Exam: Clear to Auscultation Bilateral, NORMAL BREATHING PATTERN - Cardiovascular Exam Cardiovascular Exam: REGULAR RHYTHM, +S1, +S2 - GI/Abdominal Exam GI & Abdominal Exam: Normal Bowel Sounds, Soft, Tenderness (diffuse). absent: Firm - Rectal Exam Rectal Exam: Hemorrhoids - Extremities Exam Extremities exam: Positive for: normal inspection - Back Exam Back exam: NORMAL INSPECTION - Neurological Exam Neurological exam: Alert, CN II-XII Intact, Normal Gait, Oriented x3, Reflexes Normal - Psychiatric Exam Psychiatric exam: Normal Affect, Normal Mood - Skin Skin Exam: Dry, Intact, Normal Color, Warm Results - Vital Signs Recent Vital Signs: Last Vital Signs Temp 98.6 F 01/05/17 04:40 Pulse 88 01/05/17 04:40 Resp 18 01/05/17 04:40 BP 131/92 H 01/05/17 04:40 Pulse Ox 97 01/05/17 04:40 - Labs Result Diagrams: 01/05/17 02:07 01/05/17 02:07 Assessment & Plan - Assessment and Plan (Free Text) Assessment: 41 M with PMHx of polysubstance abuse, chronic alcoholic pancreatitis and internal hemmroids presents to [facility] with complaints of dizziness and near syncopal episodes. Admitted to tele obs 1. Near syncopal episodes - CTH negative - monitor electrolytes and supplement as needed - orthostatics, tsh, EKG, Echo, carotid dopplers 2. Chronic Pancreatitis - 2/2 etoh - lipase elevated - ivf, low fat diet - pain control as needed, not currently in pain - zofran 3. Internal Hemmroids - no active signs of bleeding - stable H/H - continue to monitor - NYP procedure scheduled 4. Polysobstance abuse - Pt would like to see psych, Dr. Purdy consulted - Nicotine patch offered - ativan 2q4prn, librium - CIWA 5. DVT ppx 6. GI ppx seen reviewed and discussed with attending <Rin Hood - Last Filed: 01/05/17 22:51> Results - Vital Signs Recent Vital Signs: Last Vital Signs Temp 98.2 F 01/05/17 07:34 Pulse 90 01/05/17 08:20 Resp 18 01/05/17 08:20 BP 110/74 01/05/17 07:34 Pulse Ox 98 01/05/17 08:20 - Labs Result Diagrams: 01/05/17 02:07 01/05/17 02:07 Labs: Laboratory Results - last 24 hr 01/05/17 01/05/17 02:07 02:54 WBC 5.9 RBC 4.06 Hgb 13.9 L Hct 38.9 L MCV 95.8 MCH 34.2 MCHC 35.7 RDW 13.1 Plt Count 161 MPV 8.8 Neutrophils % (Manual) 37 L Lymphocytes % (Manual) 48 H Atypical Lymphs % 2 H Monocytes % (Manual) 7 H Eosinophils % (Manual) 5 H Basophils % (Manual) 1 Platelet Evaluation Normal PT 9.9 INR 0.92 L Sodium 146 Potassium 3.4 L Chloride 107 Carbon Dioxide 25 Anion Gap 17 BUN 6 L Creatinine 0.6 Est GFR ( Amer) > 60 Est GFR (Non-Af Amer) > 60 Random Glucose 100 Calcium 8.9 Phosphorus 3.4 Magnesium 1.9 Total Bilirubin 0.6 AST 74 H ALT 35 Alkaline Phosphatase 69 Total Protein 7.3 Albumin 4.0 Globulin 3.2 Albumin/Globulin Ratio 1.2 Triglycerides 317 H Cholesterol 170 LDL Cholesterol Direct 86 HDL Cholesterol 51 Amylase 203 H Lipase 405 H TSH 3rd Generation 1.97 Urine Opiates Screen Negative Urine Methadone Screen Negative Ur Barbiturates Screen Negative Ur Phencyclidine Scrn Negative Ur Amphetamines Screen Negative U Benzodiazepines Scrn Positive H U Oth Cocaine Metabols Negative U Cannabinoids Screen Negative Alcohol, Quantitative 254 H Attending/Attestation - Attestation I have personally seen and examined this patient.: Yes I have fully participated in the care of the patient.: Yes I have reviewed all pertinent clinical information: Yes Notes (Text): 01/05/17 22:51 Patient was seen when he was in the ER. Agree with history , physical examination, assessment and plan.
[2017-01-05 06:27] LABS: MAGNESIUM 1.9 mg/dL (1.7-2.2); PHOSPHOROUS 3.4 mg/dL (2.5-4.5)
[2017-01-05 08:21] VITALS: PULSE 90; O2SAT 98
[2017-01-05 08:32] VITALS: BP 110/74; TEMP 98.2
[2017-01-05] MEDS ORDERED: Thiamine 100 mg/ml Inj IM SCH (10:00)
[2017-01-05] MEDS ORDERED: Enoxaparin 40 mg Syringe SC SCH (10:00)
[2017-01-05] MEDS ORDERED: Multivitamin With Minerals Tab PO SCH (10:00)
--- NOTE | 2017-01-05 10:48 | CP.PCM.DIS ---
<Yaneth Santillan - Last Filed: 01/05/17 10:56> Provider - Provider Date of Admission: 01/05/2017 Attending physician: Dr. Garret CASTILLO Primary care physician: unknown Consults: none Time Spent in preparation of Discharge (in minutes): 25 Hospital Course - Lab Results Lab Results: Most Recent Lab Values WBC 5.9 10^3/ul (4.5-11.0) 01/05/17 02:07 RBC 4.06 10^6/uL (3.5-6.1) 01/05/17 02:07 Hgb 13.9 gm/dL (14.0-18.0) L 01/05/17 02:07 Hct 38.9 % (42.0-52.0) L 01/05/17 02:07 MCV 95.8 fL (80.0-105.0) 01/05/17 02:07 MCH 34.2 pg (25.0-35.0) 01/05/17 02:07 MCHC 35.7 g/dl (31.0-37.0) 01/05/17 02:07 RDW 13.1 % (11.5-14.5) 01/05/17 02:07 Plt Count 161 10^3/uL (120.0-450.0) 01/05/17 02:07 MPV 8.8 fl (7.0-11.0) 01/05/17 02:07 Neutrophils % (Manual) 37 % (50.0-70.0) L 01/05/17 02:07 Lymphocytes % (Manual) 48 % (22.0-35.0) H 01/05/17 02:07 Atypical Lymphs % 2 % (0.0-0.0) H 01/05/17 02:07 Monocytes % (Manual) 7 % (1.0-6.0) H 01/05/17 02:07 Eosinophils % (Manual) 5 % (0.0-3.0) H 01/05/17 02:07 Basophils % (Manual) 1 % (0.0-1.0) 01/05/17 02:07 Platelet Evaluation Normal (NORMAL) 01/05/17 02:07 PT 9.9 Seconds (9.9-11.8) 01/05/17 02:07 INR 0.92 (0.93-1.08) L 01/05/17 02:07 Sodium 146 mmol/L (132-148) 01/05/17 02:07 Potassium 3.4 mmol/L (3.6-5.0) L 01/05/17 02:07 Chloride 107 mmol/L (95-110) 01/05/17 02:07 Carbon Dioxide 25 mmol/L (21-33) 01/05/17 02:07 Anion Gap 17 (10-20) 01/05/17 02:07 BUN 6 mg/dL (7-21) L 01/05/17 02:07 Creatinine 0.6 mg/dL (0.5-1.4) 01/05/17 02:07 Est GFR ( Amer) > 60 01/05/17 02:07 Est GFR (Non-Af Amer) > 60 01/05/17 02:07 Random Glucose 100 mg/dL (70-110) 01/05/17 02:07 Calcium 8.9 mg/dL (8.4-10.5) 01/05/17 02:07 Phosphorus 3.4 mg/dL (2.5-4.5) 01/05/17 02:07 Magnesium 1.9 mg/dL (1.7-2.2) 01/05/17 02:07 Total Bilirubin 0.6 mg/dL (0.2-1.3) 01/05/17 02:07 AST 74 U/L (15-59) H 01/05/17 02:07 ALT 35 U/L (7-56) 01/05/17 02:07 Alkaline Phosphatase 69 U/L (38-133) 01/05/17 02:07 Total Protein 7.3 g/dL (5.8-8.3) 01/05/17 02:07 Albumin 4.0 g/dL (3.0-4.8) 01/05/17 02:07 Globulin 3.2 gm/dL 01/05/17 02:07 Albumin/Globulin Ratio 1.2 (1.1-1.8) 01/05/17 02:07 Triglycerides 317 mg/dL (35-160) H 01/05/17 02:07 Cholesterol 170 mg/dL (130-200) 01/05/17 02:07 LDL Cholesterol Direct 86 mg/dL (0-129) 01/05/17 02:07 HDL Cholesterol 51 mg/dL (29-60) 01/05/17 02:07 Amylase 203 U/L (35-125) H 01/05/17 02:07 Lipase 405 U/L (23-300) H 01/05/17 02:07 TSH 3rd Generation 1.97 mIU/mL (0.46-4.68) 01/05/17 02:07 Urine Opiates Screen Negative (NEGATIVE) 01/05/17 02:54 Urine Methadone Screen Negative (NEGATIVE) 01/05/17 02:54 Ur Barbiturates Screen Negative (NEGATIVE) 01/05/17 02:54 Ur Phencyclidine Scrn Negative (NEGATIVE) 01/05/17 02:54 Ur Amphetamines Screen Negative (NEGATIVE) 01/05/17 02:54 U Benzodiazepines Scrn Positive (NEGATIVE) H 01/05/17 02:54 U Oth Cocaine Metabols Negative (NEGATIVE) 01/05/17 02:54 U Cannabinoids Screen Negative (NEGATIVE) 01/05/17 02:54 Alcohol, Quantitative 254 mg/dL (0-10) H 01/05/17 02:07 - Hospital Course Hospital Course: 41 yo M w/PMHx of polysubstance abuse, chronic etoh pancreatitis, internal hemorrhoids, presented w/dizziness and near syncopal episodes, reporting falls onto buttocks and no LOC. .75 L of vodka imbibed daily including last night. head CT was negative for acute causes, and notable labs are lipase of 405 and UDS positive for benzodiazepenes and ETOH level of 254. Pt was admitted for near syncope, dizziness, etoh intoxication, but refused further care and stay even after attending discussed in length the risks of leaving. AMA in fair condition. Discharge Exam - Additional Findings Additional findings: please refer to history and physical. Unable to conduct exam due to AMA Discharge Plan - Follow Up Plan Condition: FAIR Disposition: AGAINST MEDICAL ADVICE <Garret CASTILLO,[place] - Last Filed: 01/05/17 15:43> Hospital Course - Lab Results Lab Results: Most Recent Lab Values WBC 5.9 10^3/ul (4.5-11.0) 01/05/17 02:07 RBC 4.06 10^6/uL (3.5-6.1) 01/05/17 02:07 Hgb 13.9 gm/dL (14.0-18.0) L 01/05/17 02:07 Hct 38.9 % (42.0-52.0) L 01/05/17 02:07 MCV 95.8 fL (80.0-105.0) 01/05/17 02:07 MCH 34.2 pg (25.0-35.0) 01/05/17 02:07 MCHC 35.7 g/dl (31.0-37.0) 01/05/17 02:07 RDW 13.1 % (11.5-14.5) 01/05/17 02:07 Plt Count 161 10^3/uL (120.0-450.0) 01/05/17 02:07 MPV 8.8 fl (7.0-11.0) 01/05/17 02:07 Neutrophils % (Manual) 37 % (50.0-70.0) L 01/05/17 02:07 Lymphocytes % (Manual) 48 % (22.0-35.0) H 01/05/17 02:07 Atypical Lymphs % 2 % (0.0-0.0) H 01/05/17 02:07 Monocytes % (Manual) 7 % (1.0-6.0) H 01/05/17 02:07 Eosinophils % (Manual) 5 % (0.0-3.0) H 01/05/17 02:07 Basophils % (Manual) 1 % (0.0-1.0) 01/05/17 02:07 Platelet Evaluation Normal (NORMAL) 01/05/17 02:07 PT 9.9 Seconds (9.9-11.8) 01/05/17 02:07 INR 0.92 (0.93-1.08) L 01/05/17 02:07 Sodium 146 mmol/L (132-148) 01/05/17 02:07 Potassium 3.4 mmol/L (3.6-5.0) L 01/05/17 02:07 Chloride 107 mmol/L (95-110) 01/05/17 02:07 Carbon Dioxide 25 mmol/L (21-33) 01/05/17 02:07 Anion Gap 17 (10-20) 01/05/17 02:07 BUN 6 mg/dL (7-21) L 01/05/17 02:07 Creatinine 0.6 mg/dL (0.5-1.4) 01/05/17 02:07 Est GFR ( Amer) > 60 01/05/17 02:07 Est GFR (Non-Af Amer) > 60 01/05/17 02:07 Random Glucose 100 mg/dL (70-110) 01/05/17 02:07 Calcium 8.9 mg/dL (8.4-10.5) 01/05/17 02:07 Phosphorus 3.4 mg/dL (2.5-4.5) 01/05/17 02:07 Magnesium 1.9 mg/dL (1.7-2.2) 01/05/17 02:07 Total Bilirubin 0.6 mg/dL (0.2-1.3) 01/05/17 02:07 AST 74 U/L (15-59) H 01/05/17 02:07 ALT 35 U/L (7-56) 01/05/17 02:07 Alkaline Phosphatase 69 U/L (38-133) 01/05/17 02:07 Total Protein 7.3 g/dL (5.8-8.3) 01/05/17 02:07 Albumin 4.0 g/dL (3.0-4.8) 01/05/17 02:07 Globulin 3.2 gm/dL 01/05/17 02:07 Albumin/Globulin Ratio 1.2 (1.1-1.8) 01/05/17 02:07 Triglycerides 317 mg/dL (35-160) H 01/05/17 02:07 Cholesterol 170 mg/dL (130-200) 01/05/17 02:07 LDL Cholesterol Direct 86 mg/dL (0-129) 01/05/17 02:07 HDL Cholesterol 51 mg/dL (29-60) 01/05/17 02:07 Amylase 203 U/L (35-125) H 01/05/17 02:07 Lipase 405 U/L (23-300) H 01/05/17 02:07 TSH 3rd Generation 1.97 mIU/mL (0.46-4.68) 01/05/17 02:07 Urine Opiates Screen Negative (NEGATIVE) 01/05/17 02:54 Urine Methadone Screen Negative (NEGATIVE) 01/05/17 02:54 Ur Barbiturates Screen Negative (NEGATIVE) 01/05/17 02:54 Ur Phencyclidine Scrn Negative (NEGATIVE) 01/05/17 02:54 Ur Amphetamines Screen Negative (NEGATIVE) 01/05/17 02:54 U Benzodiazepines Scrn Positive (NEGATIVE) H 01/05/17 02:54 U Oth Cocaine Metabols Negative (NEGATIVE) 01/05/17 02:54 U Cannabinoids Screen Negative (NEGATIVE) 01/05/17 02:54 Alcohol, Quantitative 254 mg/dL (0-10) H 01/05/17 02:07 Attending/Attestation - Attestation I have personally seen and examined this patient.: Yes I have fully participated in the care of the patient.: Yes I have reviewed all pertinent clinical information, including history, physical exam and plan: Yes Notes (Text): 01/05/17 15:40 Patient was seen and examined .He was alert,awake and oriented.He was in alcohol withdrawl at the time of evaluation.He did not want to stay in the hospital , as he was awaiting in ER for floor bed .He did not want to stay in the hospital.The need of admission was discussed in detail.The issue of ongoing alcohol abuse was also discussed .Patient signed against medical advice and left the hospital.He was alert ,awake and oriented and understood the risk of leaving the hospital against medical advice. Management plan was discussed in detail with patient Education was provided.
--- NOTE | 2017-01-05 12:04 | CARD ---
APPROVED REPORT EKG Measurement Heart [id number] <Conclusion> Normal sinus rhythm Septal infarct, age undetermined Abnormal ECG
== END 2017-01-05 08:35 | disposition left against medical advice (07) ==
LOC: ED 01:13 → UNDOADMOB 04:41 → ERH 04:41
DX: R55 Syncope and collapse (principal); R42 Dizziness and giddiness; F10.129 Alcohol abuse with intoxication, unspecified; F17.210 Nicotine dependence, cigarettes, uncomplicated
CPT/HCPCS: 70450; 80053; 80061; 80320; 80324; 80345; 80346; 80349; 80353; 80358; 80361; 82150; 83690; 83735; 83992; 84100; 84443; 85025; 85610; 93005; 96365; 96366; 96375; 96376; 99285; J2060; J3411; J3480; J7040

== ENCOUNTER 2017-01-05 20:02 | Inpatient (IN) | payer MEDICAID ==
[2017-01-05 20:02] VITALS: BMI 22.3
--- NOTE | 2017-01-05 20:47 | ED PDOC ---
Arrival/HPI - General Chief Complaint: Alcohol Ingestion Time Seen by Provider: 01/05/17 20:03 Historian: Patient - History of Present Illness Narrative History of Present Illness (Text): 01/05/17 20:44 A 41 year old male, whose past medical history includes alcohol abuse, alcoholic pancreatitis and drug abuse, presents to the emergency department requesting alcohol detoxification. Patient admits to drinking alcohol throughout the day. Patient was admitted to the hospital yesterday for intractable dizziness and alcohol intoxication. Patient signed out AMA earlier today. Patient is requesting to be readmitted to the hospital. Time/Duration: 24 hours Symptom Onset: Sudden Symptom Course: Unchanged Activities at Onset: Rest Modifying Factors (Text): none Context: Home Associated Symptoms (Text): none Past Medical History - Provider Review Nursing Documentation Reviewed: Yes - Infectious Disease Hx of Infectious Diseases: C.diff (Antigen +, toxin -) - Reproductive Currently : No - Cardiac Hx Cardiac Disorders: No - Pulmonary Hx Respiratory Disorders: No - Neurological Hx Neurological Disorder: No - HEENT Hx HEENT Disorder: Yes (wears glasses) - Renal Hx Renal Disorder: No - Endocrine/Metabolic Hx Endocrine Disorders: No - Hematological/Oncological Hx Blood Disorders: No - Integumentary Hx Dermatological Disorder: No - Musculoskeletal/Rheumatological Hx Musculoskeletal Disorders: No Hx Falls: No Hx Unsteady Gait: No - Gastrointestinal Hx Gastrointestinal Disorders: Yes Hx Hemorrhoids: Yes Hx Pancreatitis: Yes - Genitourinary/Gynecological Hx Genitourinary Disorders: No - Psychiatric Hx Psychophysiologic Disorder: No Hx Emotional Abuse: No Hx Physical Abuse: No Hx Sexual Abuse: No Hx Substance Use: No - Anesthesia Hx Anesthesia: No Family/Social History - Physician Review Nursing Documentation Reviewed: Yes Family/Social History: No Known Family HX Smoking Status: Heavy Smoker > 10 Cigarettes Daily Hx Alcohol Use: Yes (vodka) Hx Substance Use: No Allergies/Home Meds Allergies/Adverse Reactions: Allergies No Known Allergies Allergy (Verified 01/05/17 01:20) Review of Systems - Physician Review All systems were reviewed & negative as marked: Yes - Review of Systems Constitutional: Normal. absent: Fevers Eyes: Normal ENT: Normal Respiratory: Normal. absent: Cough Cardiovascular: Normal Gastrointestinal: Normal. absent: Diarrhea Genitourinary Male: Normal Musculoskeletal: Normal Skin: Normal Neurological: absent: Headache Endocrine: Normal Hemo/Lymphatic: Normal Psychiatric: Other (+alcohol intoxication) Physical Exam Vital Signs Reviewed: Yes Vital Signs Temp Pulse Resp BP Pulse Ox 01/05/17 20:21 97.9 F 94 H 16 153/103 H 99 Temperature: Afebrile Blood Pressure: Hypertensive Pulse: Regular Respiratory Rate: Normal Appearance: Positive for: Well-Appearing, Non-Toxic, Comfortable Pain Distress: None Mental Status: Positive for: Alert and Oriented X 3 - Systems Exam Head: Present: Atraumatic, Normocephalic Pupils: Present: PERRL Extroacular Muscles: Present: EOMI Conjunctiva: Present: Normal Mouth: Present: Moist Mucous Membranes Neck: Present: Normal Range of Motion Respiratory/Chest: Present: Clear to Auscultation, Good Air Exchange. No: Respiratory Distress, Accessory Muscle Use Cardiovascular: Present: Regular Rate and Rhythm, Normal S1, S2. No: Murmurs Abdomen: Present: Normal Bowel Sounds. No: Tenderness, Distention, Peritoneal Signs Upper Extremity: Present: Normal Inspection. No: Cyanosis, Edema Lower Extremity: Present: Normal Inspection. No: Edema Neurological: Present: GCS=15, CN II-XII Intact, Speech Normal Skin: Present: Warm, Dry, Normal Color. No: Rashes Psychiatric: Present: Alert, Oriented x 3, Normal Insight, Normal Concentration , Intoxicated Medical Decision Making ED Course and Treatment: 01/05/17 20:52 Impression: 41 year old male requesting alcohol detox. Differential Diagnosis include but are not limited to: Plan: -- EKG -- Chest Xray -- Labs -- Reassess and disposition Prior Visits: Notes and results from previous visits were reviewed. Patient was reported to emergency department on 01/05/17 for evaluation of dizziness. Progress Notes: EKG: Ordered, reviewed, and independently interpreted the EKG. Rate : 89 BPM Rhythm : NSR Interpretation : Anteroseptal infarct; Nonspecific ST/T changes Comparison : No previous EKG for comparison. - Lab Interpretations Lab Results: 01/05/17 21:29 Lab Results 01/05/17 21:29: WBC 6.8, RBC 4.10, Hgb 14.0, Hct 39.4 L, MCV 96.1, MCH 34.1, MCHC 35.5, RDW 13.4, Plt Count 213, MPV 10.3, Alcohol, Quantitative 278 H I have reviewed the lab results: Yes - RAD Interpretation Radiology Orders: 01/05/17 20:43 CHEST PORTABLE [RAD] Stat - EKG Interpretation Interpreted by ED Physician: Yes Type: 12 lead EKG ED OBSERVATION Date of observation admission: 01/06/17 Time of observation admission: 21:30 - Observation admission statement Patient is being placed in observation because:: alcohol intoxication - Goals of Observation Goals of observation are:: sobriety, observe for signs of withdrawal - Progress Note Progress Note: 01/05/17 21:30 Alcohol level:278. Wll observe until morning pending sobriety. 01/05/17 22:27 Reviewed radiology, Chest X-ray shows no active disease. 01/05/17 23:28 Pt resting comfortably, in no acute distress. 01/06/17 00:29 RN reports pt is tremulous/shaking. 01/06/17 00:41 presidential helicopter crew chief notified. Case discussed with Dr. Hood, who is aware and agrees with plan. Accepts pt in to hospitalist service. Pt will go to remote telemetry observation for dizziness and alcohol withdrawal. - Scribe Statement The provider has reviewed the documentation as recorded by the Scribe Adam Vazquez All medical record entries made by the Scribe were at my direction and personally dictated by me. I have reviewed the chart and agree that the record accurately reflects my personal performance of the history, physical exam, medical decision making, and the department course for this patient. I have also personally directed, reviewed, and agree with the discharge instructions and disposition. Disposition/Present on Arrival - Present on Arrival Any Indicators Present on Arrival: No History of DVT/PE: No History of Uncontrolled Diabetes: No Urinary Catheter: No History of Decub. Ulcer: No History Surgical Site Infection Following: None - Disposition Have Diagnosis and Disposition been Completed?: Yes Diagnosis: Alcohol withdrawal, Dizziness Disposition: HOSPITALIZED Disposition Time: 00:48 Patient Plan: Observation Condition: STABLE
[2017-01-05 21:34] LABS: HEMATOCRIT 39.4 % (42.0-52.0); MEAN CELL VOLUME 96.1 fL (80.0-105.0); MEAN CORPUSCULAR HEMOGLOBIN 34.1 pg (25.0-35.0); MEAN CORPUSCULAR HGB CONC 35.5 g/dl (31.0-37.0); MEAN PLATELET VOLUME 10.3 fl (7.0-11.0); RED CELL DISTRIBUTION WIDTH 13.4 % (11.5-14.5); WHITE BLOOD COUNT 6.8 10^3/ul (4.5-11.0)
[2017-01-05 22:09] LABS: ALB/GLOB RATIO 1.1 (1.1-1.8); ALKALINE PHOSPHATASE 92 U/L (38-133); ALT/SGPT 38 U/L (7-56); AST/SGOT 68 U/L (15-59); BILIRUBIN,TOTAL 0.6 mg/dL (0.2-1.3); BLOOD UREA NITROGEN 6 mg/dL (7-21); CALCIUM 8.7 mg/dL (8.4-10.5); CARBON DIOXIDE 26 mmol/L (21-33); CHLORIDE 109 mmol/L (98-107); GFR AFRICAN-AMERICAN > 60; GLUCOSE,RANDOM 87 mg/dL (70-110); POTASSIUM 3.7 mmol/L (3.6-5.0); SODIUM 147 mmol/L (132-148); TOTAL PROTEIN 7.7 g/dL (5.8-8.3)
--- NOTE | 2017-01-06 01:38 | CP.PCM.HP ---
<Denny Ahmadi - Last Filed: 01/06/17 01:35> History of Present Illness - History of Present Illness History of Present Illness: 41 M with PMHx of polysubstance abuse, chronic alcoholic pancreatitis and internal hemmroids presents to [facility] with complaints of etoh intoxication. Pt was recently admitted for syncopal workup, however left AMA prior to any complete evaluation on account of "staying in bed for too long and becoming impatient". He returns today to complete his evaluation and to seek help with etoh detoxification. He would like to speak to a psychiatrist for help as well. He admits to drinking 750ml of vodka daily. He last drank etoh today. He admits to diffuse abdominal pain, exacerbated by palpation. He denied fever, chills, sob, chest pains, palpitations, n/v/d/c or urinary symptoms PMHx: As above PSHx: appointment at [facility] for hemmroid banding Famhx: Noncontributory SHx: 1/2ppd x 20yrs, 750ml vodka daily, hx of cocaine, heroin quit 5 yrs ago meds: MAR reviewed Allergies: NKDA Present on Admission - Present on Admission Any Indicators Present on Admission: No History of DVT/PE: No History of Uncontrolled Diabetes: No Urinary Catheter: No Decubitus Ulcer Present: No Review of Systems - Review of Systems Review of Systems: as per hpi otherwise negative Past Patient History - Infectious Disease Hx of Infectious Diseases: C.diff (Antigen +, toxin -) - Past Social History Smoking Status: Heavy Smoker > 10 Cigarettes Daily - CARDIAC Hx Cardiac Disorders: No - PULMONARY Hx Respiratory Disorders: No - NEUROLOGICAL Hx Neurological Disorder: No - HEENT Hx HEENT Problems: Yes (wears glasses) - RENAL Hx Chronic Kidney Disease: No - ENDOCRINE/METABOLIC Hx Endocrine Disorders: No - HEMATOLOGICAL/ONCOLOGICAL Hx Blood Disorders: No - INTEGUMENTARY Hx Dermatological Problems: No - MUSCULOSKELETAL/RHEUMATOLOGICAL Hx Musculoskeletal Disorders: No Hx Falls: No Hx Unsteady Gait: No - GASTROINTESTINAL Hx Gastrointestinal Disorders: Yes Hx Hemorrhoids: Yes Hx Pancreatitis: Yes - GENITOURINARY/GYNECOLOGICAL Hx Genitourinary Disorders: No - PSYCHIATRIC Hx Psychophysiologic Disorder: No Hx Emotional Abuse: No Hx Physical Abuse: No Hx Sexual Abuse: No Hx Substance Use: No - SURGICAL HISTORY Hx Surgeries: No - ANESTHESIA Hx Anesthesia: No Meds Allergies/Adverse Reactions: Allergies Allergy/AdvReac Type Severity Reaction Status Date / Time No Known Allergies Allergy Verified 01/05/17 01:20 Physical Exam - Constitutional Appears: No Acute Distress, Unkempt Additional comments: intoxicated - Head Exam Head Exam: ATRAUMATIC, NORMAL INSPECTION, NORMOCEPHALIC - Eye Exam Eye Exam: EOMI, Normal appearance, PERRL Pupil Exam: Fixed - ENT Exam ENT Exam: Mucous Membranes Dry - Neck Exam Neck exam: Positive for: Normal Inspection - Respiratory Exam Respiratory Exam: Clear to Auscultation Bilateral, NORMAL BREATHING PATTERN - Cardiovascular Exam Cardiovascular Exam: REGULAR RHYTHM, +S1, +S2 - GI/Abdominal Exam GI & Abdominal Exam: Normal Bowel Sounds, Soft, Tenderness Additional comments: RUQ - Rectal Exam Rectal Exam: Hemorrhoids - Extremities Exam Extremities exam: Positive for: normal inspection - Back Exam Back exam: NORMAL INSPECTION - Neurological Exam Neurological exam: Alert, CN II-XII Intact, Oriented x3 - Psychiatric Exam Psychiatric exam: Normal Affect, Normal Mood - Skin Skin Exam: Dry, Intact, Normal Color, Warm Results - Vital Signs Recent Vital Signs: Last Vital Signs Temp 97.9 F 01/05/17 20:21 Pulse 94 H 01/05/17 20:21 Resp 16 01/05/17 20:21 BP 153/103 H 01/05/17 20:21 Pulse Ox 99 01/05/17 20:21 - Labs Result Diagrams: 01/05/17 21:29 01/05/17 21:49 Labs: Laboratory Results - last 24 hr 01/05/17 21:49 Sodium 147 Potassium 3.7 Chloride 109 H Carbon Dioxide 26 Anion Gap 16 BUN 6 L Creatinine 0.7 Est GFR ( Amer) > 60 Est GFR (Non-Af Amer) > 60 Random Glucose 87 Calcium 8.7 Total Bilirubin 0.6 AST 68 H ALT 38 Alkaline Phosphatase 92 Total Protein 7.7 Albumin 4.1 Globulin 3.6 Albumin/Globulin Ratio 1.1 Assessment & Plan - Assessment and Plan (Free Text) Assessment: 41 M with PMHx of polysubstance abuse, chronic alcoholic pancreatitis and internal hemmroids presents to [facility] with complaints of Etoh intoxication and previous admission for dizziness and near syncopal episodes. Admitted to tele obs 1. Polysobstance abuse - Pt would like to see psych regarding etoh detoxification, Dr. Purdy consulted - Nicotine patch offered - ativan 2q2prn, librium 25 q8 manjula - CIWA - fall precautions 2. Near syncopal episodes - Recent CTH negative - monitor electrolytes and supplement as needed - orthostatics, tsh, EKG wnl, continue to monitor 3. Chronic Pancreatitis - 2/2 etoh - lipase elevated - ivf, low fat diet - pain control as needed, not currently in pain - zofran 4. Internal Hemmroids - no active signs of bleeding - stable H/H - continue to monitor - NYP procedure scheduled 5. DVT ppx 6. GI ppx seen reviewed and discussed with attending <Rin Hood - Last Filed: 01/06/17 03:27> Results - Vital Signs Recent Vital Signs: Last Vital Signs Temp 97.9 F 01/05/17 20:21 Pulse 93 H 01/06/17 01:34 Resp 18 01/06/17 02:39 BP 139/86 01/06/17 01:34 Pulse Ox 98 01/06/17 01:34 - Labs Result Diagrams: 01/05/17 21:29 01/05/17 21:49 Labs: Laboratory Results - last 24 hr 01/05/17 01/05/17 21:49 21:50 Sodium 147 Potassium 3.7 Chloride 109 H Carbon Dioxide 26 Anion Gap 16 BUN 6 L Creatinine 0.7 Est GFR ( Amer) > 60 Est GFR (Non-Af Amer) > 60 Random Glucose 87 Calcium 8.7 Total Bilirubin 0.6 AST 68 H ALT 38 Alkaline Phosphatase 92 Total Protein 7.7 Albumin 4.1 Globulin 3.6 Albumin/Globulin Ratio 1.1 Urine Opiates Screen Negative Urine Methadone Screen Negative Ur Barbiturates Screen Negative Ur Phencyclidine Scrn Negative Ur Amphetamines Screen Negative U Benzodiazepines Scrn Positive H U Oth Cocaine Metabols Negative U Cannabinoids Screen Negative Attending/Attestation - Attestation I have personally seen and examined this patient.: Yes I have fully participated in the care of the patient.: Yes I have reviewed all pertinent clinical information: Yes Notes (Text): 01/06/17 03:26 Patient was seen by me when he was in bed # 19 in the ER . Agree with history , physical examination, assessment and plan.
[2017-01-06] MEDS: Folic Acid 1 MG, Thiamine 100 MG, Multivitamin (MVI) 10 ML in Dextrose 5% In Water 1,00... IV SCH ×3 (01:42→22:57)
[2017-01-06 07:30] LABS: ADD MANUAL DIFF? NO
[2017-01-06 07:37] LABS: BASO # 0.07 K/mm3 (0.0-2.0); BASO % 1.4 % (0.0-3.0); EOS # 0.3 (0.0-0.7); GRAN # 1.46 (1.4-6.5); GRAN % 28.4 % (50.0-68.0); HEMATOCRIT 35.2 % (42.0-52.0); LYMPH # 2.9 (1.2-3.4); LYMPH % 55.4 % (22.0-35.0); MEAN CELL VOLUME 95.9 fL (80.0-105.0); MEAN CORPUSCULAR HEMOGLOBIN 33.5 pg (25.0-35.0); MEAN CORPUSCULAR HGB CONC 34.9 g/dl (31.0-37.0); MEAN PLATELET VOLUME 8.9 fl (7.0-11.0); MONO # 0.5 (0.1-0.6); MONO % 8.8 % (1.0-6.0); PLATELET COUNT 148 10^3/uL (120.0-450.0); WHITE BLOOD COUNT 5.1 10^3/ul (4.5-11.0)
--- NOTE | 2017-01-06 08:55 | RAD ---
HISTORY: medical clearance COMPARISON: 12/11/2016 FINDINGS: LUNGS: No active pulmonary disease. PLEURA: No significant pleural effusion identified, no pneumothorax apparent. CARDIOVASCULAR: Normal. OSSEOUS STRUCTURES: No significant abnormalities. VISUALIZED UPPER ABDOMEN: Normal. OTHER FINDINGS: None. IMPRESSION: No active disease. No interval pathology appreciated
[2017-01-06 09:08] LABS: ALB/GLOB RATIO 1.1 (1.1-1.8); ALKALINE PHOSPHATASE 55 U/L (38-133); ALT/SGPT 34 U/L (7-56); AST/SGOT 65 U/L (15-59); BILIRUBIN,TOTAL 0.7 mg/dL (0.2-1.3); BLOOD UREA NITROGEN 6 mg/dL (7-21); CALCIUM 8.4 mg/dL (8.4-10.5); CARBON DIOXIDE 25 mmol/L (21-33); CHLORIDE 108 mmol/L (95-110); GFR AFRICAN-AMERICAN > 60; GLUCOSE,RANDOM 89 mg/dL (70-110); POTASSIUM 3.3 mmol/L (3.6-5.0); SODIUM 144 mmol/L (132-148); TOTAL PROTEIN 6.7 g/dL (5.8-8.3)
[2017-01-06] MEDS ORDERED: Potassium Chloride 20 mEq ER Tab PO ONE (09:22)
[2017-01-06] MEDS: Enoxaparin 40 mg Syringe SC SCH (09:26)
--- NOTE | 2017-01-06 17:27 | CP.PCM.PN ---
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 Objective - Vital Signs/Intake and Output Vital Signs (last 24 hours): Temp Pulse Resp BP Pulse Ox 97.8 F 93 H 20 127/85 98 01/06/17 06:00 01/06/17 14:00 01/06/17 06:00 01/06/17 06:00 01/06/17 06:00 Intake and Output: 01/06/17 01/06/17 06:59 18:59 Intake Total 420 Balance 420 - Medications Medications: Current Medications Chlordiazepoxide (Librium) 25 mg PO Q8 PRN; Protocol PRN Reason: Symptoms of alcohol withdrawl Last Admin: 01/06/17 09:26 Dose: 25 mg Enoxaparin Sodium (Lovenox) 40 mg SC DAILY [facility] PRN Reason: Protocol Last Admin: 01/06/17 09:26 Dose: 40 mg Folic Acid 1 mg/ Thiamine HCl 100 mg/ Multivitamins/Vitamin C 10 ml/ Dextrose 1 ,011.2 mls @ 100 mls/hr IV .Q10H7M [facility] Last Admin: 01/06/17 13:30 Dose: 100 mls/hr Naltrexone HCl (Revia) 50 mg PO DAILY [facility] Last Admin: 01/06/17 09:43 Dose: Not Given Nicotine (Nicoderm Cq) 1 patch TD DAILY [facility] Last Admin: 01/06/17 09:11 Dose: Not Given Pantoprazole Sodium (Protonix Inj) 40 mg IVP DAILY [facility] Last Admin: 01/06/17 09:26 Dose: 40 mg - Constitutional Appears: No Acute Distress - Head Exam Head Exam: NORMOCEPHALIC - Eye Exam Eye Exam: PERRL - ENT Exam ENT Exam: Mucous Membranes Moist - Neck Exam Neck Exam: Full ROM, Normal Inspection - Respiratory Exam Respiratory Exam: Clear to Ausculation Bilateral, NORMAL BREATHING PATTERN - Cardiovascular Exam Cardiovascular Exam: RRR, +S1, +S2 - GI/Abdominal Exam GI & Abdominal Exam: Soft, Normal Bowel Sounds - Rectal Exam Rectal Exam: Deferred - Extremities Exam Extremities Exam: Full ROM, Normal Inspection - Neurological Exam Neurological Exam: Alert, Awake, Oriented x3 - Psychiatric Exam Psychiatric exam: Normal Affect - Skin Skin Exam: Normal Color, Warm Additional comments: pt has old bruise a the left anterior abdominal skin. Assessment and Plan - Assessment and Plan (Free Text) Assessment: s/p fall no injury noted . hx of ETOH. Plan: FALL PRECAUTIONS.
--- NOTE | 2017-01-06 18:02 | CARD ---
APPROVED REPORT EKG Measurement Heart [id number] OH [id number] [id number] <Conclusion> Normal sinus rhythm RSR' or QR pattern in V1 suggests right ventricular conduction delay Anteroseptal infarct, age undetermined Abnormal ECG
[2017-01-07 01:23] VITALS: RESP 18; TEMP 98.1
[2017-01-07] MEDS ORDERED: Potassium Chloride 20 mEq ER Tab PO ONE (08:46)
[2017-01-07 08:48] LABS: ADD MANUAL DIFF? NO
[2017-01-07 09:02] LABS: ALB/GLOB RATIO 1.1 (1.1-1.8); ALKALINE PHOSPHATASE 66 U/L (38-133); ALT/SGPT 37 U/L (7-56); AST/SGOT 70 U/L (15-59); BLOOD UREA NITROGEN 5 mg/dL (7-21); CALCIUM 9.1 mg/dL (8.4-10.5); CARBON DIOXIDE 28 mmol/L (21-33); CHLORIDE 103 mmol/L (95-110); GFR AFRICAN-AMERICAN > 60; GLUCOSE,RANDOM 111 mg/dL (70-110); POTASSIUM 3.3 mmol/L (3.6-5.0); SODIUM 139 mmol/L (132-148); TOTAL PROTEIN 7.1 g/dL (5.8-8.3)
[2017-01-07 09:03] LABS: BASO # 0.04 K/mm3 (0.0-2.0); BASO % 0.5 % (0.0-3.0); EOS # 0.2 (0.0-0.7); EOS % 2.7 % (1.5-5.0); GRAN # 6.07 (1.4-6.5); GRAN % 70.5 % (50.0-68.0); HEMATOCRIT 36.6 % (42.0-52.0); LYMPH # 1.7 (1.2-3.4); LYMPH % 19.6 % (22.0-35.0); MEAN CELL VOLUME 95.8 fL (80.0-105.0); MEAN CORPUSCULAR HGB CONC 34.4 g/dl (31.0-37.0); MEAN PLATELET VOLUME 9.3 fl (7.0-11.0); MONO # 0.6 (0.1-0.6); MONO % 6.7 % (1.0-6.0); PLATELET COUNT 153 10^3/uL (120.0-450.0); RED CELL DISTRIBUTION WIDTH 12.7 % (11.5-14.5); WHITE BLOOD COUNT 8.6 10^3/ul (4.5-11.0)
[2017-01-07 09:47] VITALS: BP 139/94; O2SAT 94
[2017-01-07] MEDS: Folic Acid 1 MG, Thiamine 100 MG, Multivitamin (MVI) 10 ML in Dextrose 5% In Water 1,00... IV SCH (10:10)
[2017-01-07] MEDS: Enoxaparin 40 mg Syringe SC SCH (10:14)
--- NOTE | 2017-01-07 12:36 | CON ---
DATE: 01/07/2017 The patient is a 41-year-old male with a history of alcohol dependency who is being treated by the medical team for alcohol withdrawal. Psychiatry was consulted because of patient's alcohol d ependency. HISTORY OF PRESENT ILLNESS: I met with patient at bedside and he is calm and cooperative, alert and oriented to date, month, year, location and circumstances. The patient recalls this provider from pr ior consultation and he continues to deny having any psychiatric symptoms at all including depression , anxiety, hallucinations or delusions. The patient, however, still reports a 5-year history of alco hol dependency and he still continues to drink 700 mL of vodka daily for approximately [address] ill would like to pursue sobriety; however, finds it difficult at this time. The patient wanted to t alk to psychiatry to determine what resources are available for him regarding management of these iss ues on an outpatient basis. This provider indicated that social science manager is able to provide these reso urces; however, I would be willing to discuss any psychiatric symptoms with him that he would like to address. Again, patient denies having any psychiatric symptoms, indicating main issue is his alcohol dependency. The patient is still aware of the option of naltrexone and is open to the idea, but esqueda s not want to start this medication on the hospital floor. He reports that he has a supply at home g iven to him by his medical doctor and is considering starting this medication on his own until he is able to get into outpatient treatment. This provider reviewed the indications of this medication, th e benefits and possible risks including side effects and the fact that he needed to not have any alco hol in his system for 3-4 days prior to starting this medication. The patient is coherent, logical, goal directed and in very good control. He is not delusional. He i s not responding to internal stimuli and while he has good insight, his judgment is poor to fair. Th e patient has generally been controlled on the unit and denies any current distress and presents as a fairly reliable historian. PSYCHIATRIC HISTORY: The patient denies any history of psych followup, psych meds, suicide attempts or inpatient treatment for psychiatric symptoms. SOCIAL HISTORY: The patient was born in [place] and raised in [place]. The patient is single. He has no children. He resides in his own apartment in [place]. The patient also has an apartment in [place]. 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 The patient denies any issues with drug use. How ever, he does report alcohol dependency, first noted by him 5 years ago. The patient reports a perio d of sobriety for 2-1/2 to 3 years; however, relapsed 2 years ago and he is currently drinking 750 mL of vodka daily. The patient denies any history of withdrawal seizures, DTs or hallucinations associ ated with alcohol use. Regarding his legal history, he does have a DUI from "a long time ago." VITAL SIGNS AND LABORATORIES: Reviewed. IMPRESSION: Alcohol use disorder, severe. RECOMMENDATIONS: At this time, as I recommended last month, patient should obtain social work servic es regarding possible disposition for his alcohol dependency. The patient is not interested in psych iatric management and he does not have any psychiatric symptoms at this time. Psychiatry will sign o ff at this time. Please reconsult if there are any psychiatric issues. The patient defers on any ps ychiatric management at this time, as noted above, for psychiatric issues. Paresh Whyte MD cc: [id number] TT: 01/07/2017 12:35:25 Confirmation # [id number] Dictation # [id number] [email or web address]
[2017-01-07 14:33] VITALS: PULSE 98
--- NOTE | 2017-01-07 14:36 | CP.PCM.DIS ---
<Yaneth Santillan - Last Filed: 02/10/17 21:57> Provider - Provider Date of Admission: 01/06/17 12:28 Attending physician: Sheng London MD Primary care physician: unknown Consults: dr. marti Time Spent in preparation of Discharge (in minutes): 25 Hospital Course - Lab Results Lab Results: Most Recent Lab Values WBC 8.6 10^3/ul (4.5-11.0) D 01/07/17 08:30 RBC 3.82 10^6/uL (3.5-6.1) 01/07/17 08:30 Hgb 12.6 gm/dL (14.0-18.0) L 01/07/17 08:30 Hct 36.6 % (42.0-52.0) L 01/07/17 08:30 MCV 95.8 fL (80.0-105.0) 01/07/17 08:30 MCH 33.0 pg (25.0-35.0) 01/07/17 08:30 MCHC 34.4 g/dl (31.0-37.0) 01/07/17 08:30 RDW 12.7 % (11.5-14.5) 01/07/17 08:30 Plt Count 153 10^3/uL (120.0-450.0) 01/07/17 08:30 MPV 9.3 fl (7.0-11.0) 01/07/17 08:30 Gran % 70.5 % (50.0-68.0) H 01/07/17 08:30 Lymph % (Auto) 19.6 % (22.0-35.0) L 01/07/17 08:30 Sully % (Auto) 6.7 % (1.0-6.0) H 01/07/17 08:30 Eos % (Auto) 2.7 % (1.5-5.0) 01/07/17 08:30 Baso % (Auto) 0.5 % (0.0-3.0) 01/07/17 08:30 Gran # 6.07 (1.4-6.5) 01/07/17 08:30 Lymph # 1.7 (1.2-3.4) 01/07/17 08:30 Sully # 0.6 (0.1-0.6) 01/07/17 08:30 Eos # 0.2 (0.0-0.7) 01/07/17 08:30 Baso # 0.04 K/mm3 (0.0-2.0) 01/07/17 08:30 Sodium 139 mmol/L (132-148) 01/07/17 08:30 Potassium 3.3 mmol/L (3.6-5.0) L 01/07/17 08:30 Chloride 103 mmol/L (95-110) 01/07/17 08:30 Carbon Dioxide 28 mmol/L (21-33) 01/07/17 08:30 Anion Gap 11 (10-20) 01/07/17 08:30 BUN 5 mg/dL (7-21) L 01/07/17 08:30 Creatinine 0.7 mg/dL (0.5-1.4) 01/07/17 08:30 Est GFR ( Amer) > 60 01/07/17 08:30 Est GFR (Non-Af Amer) > 60 01/07/17 08:30 POC Glucose (mg/dL) 89 mg/dL (65-110) 01/06/17 12:24 Random Glucose 111 mg/dL (70-110) H 01/07/17 08:30 Calcium 9.1 mg/dL (8.4-10.5) 01/07/17 08:30 Total Bilirubin 1.0 mg/dL (0.2-1.3) 01/07/17 08:30 AST 70 U/L (15-59) H 01/07/17 08:30 ALT 37 U/L (7-56) 01/07/17 08:30 Alkaline Phosphatase 66 U/L (38-133) 01/07/17 08:30 Total Protein 7.1 g/dL (5.8-8.3) 01/07/17 08:30 Albumin 3.7 g/dL (3.0-4.8) 01/07/17 08:30 Globulin 3.3 gm/dL 01/07/17 08:30 Albumin/Globulin Ratio 1.1 (1.1-1.8) 01/07/17 08:30 Urine Opiates Screen Negative (NEGATIVE) 01/05/17 21:50 Urine Methadone Screen Negative (NEGATIVE) 01/05/17 21:50 Ur Barbiturates Screen Negative (NEGATIVE) 01/05/17 21:50 Ur Phencyclidine Scrn Negative (NEGATIVE) 01/05/17 21:50 Ur Amphetamines Screen Negative (NEGATIVE) 01/05/17 21:50 U Benzodiazepines Scrn Positive (NEGATIVE) H 01/05/17 21:50 U Oth Cocaine Metabols Negative (NEGATIVE) 01/05/17 21:50 U Cannabinoids Screen Negative (NEGATIVE) 01/05/17 21:50 Alcohol, Quantitative 278 mg/dL (0-10) H 01/05/17 21:29 - Hospital Course Hospital Course: 41 M with PMHx of polysubstance abuse, chronic alcoholic pancreatitis and internal hemorrhoids presents to [facility] with complaints of ETOH intoxication and previous admission for dizziness and near syncopal episodes. ETOH level of 278. Under observation in tele obs for ETOH intoxication. On floor: CIWA precautions w/ativan and librium prn as well as thiamine, folic acid and multivitamin administered with banana bag. For pt's chronic pamcreatitis, IVF, and diet advanced to a low-fat diet as tolerated. Tremors improved throughout admission. Pt d/c in good condition with the following instructions: Pt is discharged home. Pt is to follow-up with his primary medical physician of choice within two weeks. Pt received resource list for alcoholic rehabilitation from social work, please refer to this list. Pt claims to have adequate supply of thiamine, folic acid and multivitamin and other home medications, so please restart your home medications. PLease return to emergency department for worsening of symptoms. Discharge Exam - Additional Findings Additional findings: - Head Exam Head Exam: ATRAUMATIC, NORMOCEPHALIC - Eye Exam Eye Exam: EOMI, Normal appearance, PERRL - ENT Exam ENT Exam: Mucous Membranes Dry - Neck Exam Neck exam: Positive for: Normal Inspection - Respiratory Exam Respiratory Exam: Clear to Auscultation Bilateral, NORMAL BREATHING PATTERN - Cardiovascular Exam Cardiovascular Exam: REGULAR RHYTHM, +S1, +S2 - GI/Abdominal Exam GI & Abdominal Exam: Normal Bowel Sounds, Soft - Extremities Exam Extremities exam: Positive for: normal inspection - Back Exam Back exam: NORMAL INSPECTION - Neurological Exam Neurological exam: Alert, CN II-XII Intact, Oriented x3 - Psychiatric Exam Psychiatric exam: Normal Affect, Normal Mood - Skin Skin Exam: Dry, Intact, Normal Color, Warm Discharge Plan - Follow Up Plan Condition: GOOD Disposition: HOME/ ROUTINE Instructions: Alcohol Intoxication (DC), Abuse of Alcohol (DC), Dizziness (GEN) Additional Instructions: Pt is discharged home. Pt is to follow-up with his primary medical physician of choice within two weeks. Pt received resource list for alcoholic rehabilitation from social work, please refer to this list. Pt claims to have adequate supply of thiamine, folic acid and multivitamin and other home medications, so please restart your home medications. PLease return to emergency department for worsening of symptoms. <Sheng London - Last Filed: 02/11/17 08:04> Provider - Provider Date of Admission: 01/06/17 12:28 Attending physician: Sheng London MD Time Spent in preparation of Discharge (in minutes): 35 Hospital Course - Lab Results Lab Results: Most Recent Lab Values WBC 8.6 10^3/ul (4.5-11.0) D 01/07/17 08:30 RBC 3.82 10^6/uL (3.5-6.1) 01/07/17 08:30 Hgb 12.6 gm/dL (14.0-18.0) L 01/07/17 08:30 Hct 36.6 % (42.0-52.0) L 01/07/17 08:30 MCV 95.8 fL (80.0-105.0) 01/07/17 08:30 MCH 33.0 pg (25.0-35.0) 01/07/17 08:30 MCHC 34.4 g/dl (31.0-37.0) 01/07/17 08:30 RDW 12.7 % (11.5-14.5) 01/07/17 08:30 Plt Count 153 10^3/uL (120.0-450.0) 01/07/17 08:30 MPV 9.3 fl (7.0-11.0) 01/07/17 08:30 Gran % 70.5 % (50.0-68.0) H 01/07/17 08:30 Lymph % (Auto) 19.6 % (22.0-35.0) L 01/07/17 08:30 Sully % (Auto) 6.7 % (1.0-6.0) H 01/07/17 08:30 Eos % (Auto) 2.7 % (1.5-5.0) 01/07/17 08:30 Baso % (Auto) 0.5 % (0.0-3.0) 01/07/17 08:30 Gran # 6.07 (1.4-6.5) 01/07/17 08:30 Lymph # 1.7 (1.2-3.4) 01/07/17 08:30 Sully # 0.6 (0.1-0.6) 01/07/17 08:30 Eos # 0.2 (0.0-0.7) 01/07/17 08:30 Baso # 0.04 K/mm3 (0.0-2.0) 01/07/17 08:30 Sodium 139 mmol/L (132-148) 01/07/17 08:30 Potassium 3.3 mmol/L (3.6-5.0) L 01/07/17 08:30 Chloride 103 mmol/L (95-110) 01/07/17 08:30 Carbon Dioxide 28 mmol/L (21-33) 01/07/17 08:30 Anion Gap 11 (10-20) 01/07/17 08:30 BUN 5 mg/dL (7-21) L 01/07/17 08:30 Creatinine 0.7 mg/dL (0.5-1.4) 01/07/17 08:30 Est GFR ( Amer) > 60 01/07/17 08:30 Est GFR (Non-Af Amer) > 60 01/07/17 08:30 POC Glucose (mg/dL) 89 mg/dL (65-110) 01/06/17 12:24 Random Glucose 111 mg/dL (70-110) H 01/07/17 08:30 Calcium 9.1 mg/dL (8.4-10.5) 01/07/17 08:30 Total Bilirubin 1.0 mg/dL (0.2-1.3) 01/07/17 08:30 AST 70 U/L (15-59) H 01/07/17 08:30 ALT 37 U/L (7-56) 01/07/17 08:30 Alkaline Phosphatase 66 U/L (38-133) 01/07/17 08:30 Total Protein 7.1 g/dL (5.8-8.3) 01/07/17 08:30 Albumin 3.7 g/dL (3.0-4.8) 01/07/17 08:30 Globulin 3.3 gm/dL 01/07/17 08:30 Albumin/Globulin Ratio 1.1 (1.1-1.8) 01/07/17 08:30 Urine Opiates Screen Negative (NEGATIVE) 01/05/17 21:50 Urine Methadone Screen Negative (NEGATIVE) 01/05/17 21:50 Ur Barbiturates Screen Negative (NEGATIVE) 01/05/17 21:50 Ur Phencyclidine Scrn Negative (NEGATIVE) 01/05/17 21:50 Ur Amphetamines Screen Negative (NEGATIVE) 01/05/17 21:50 U Benzodiazepines Scrn Positive (NEGATIVE) H 01/05/17 21:50 U Oth Cocaine Metabols Negative (NEGATIVE) 01/05/17 21:50 U Cannabinoids Screen Negative (NEGATIVE) 01/05/17 21:50 Alcohol, Quantitative 278 mg/dL (0-10) H 01/05/17 21:29 Attending/Attestation - Attestation I have personally seen and examined this patient.: Yes I have fully participated in the care of the patient.: Yes I have reviewed all pertinent clinical information, including history, physical exam and plan: Yes Notes (Text): 02/11/17 07:56 41 year old male with past medical history of chronic etoh abuse and polysubstance abuse who presented with alcohol intoxication. He was treated for alcohol withdrawal with ativan, librium and banana bag. He was counselled on alcohol cessation. He had chronic pancreatitis as well and his diet was advanced which he tolerated. He is discharged home to follow up with his pmd. Counselled on alcohol abstinence. Counselled on risks of continued substance abuse. Sheng London MD Hospitalist.
== END 2017-01-07 14:37 | disposition home or self-care (01) | DRG 751 ==
LOC: ED 20:02 → EROBSV 21:30 → ERH 01-06 01:12 → 3RSO 01-06 02:33 → OBSVTOIN 01-06 12:28
PROVIDERS: ADMIT Internal Medicine; ATTEND Internal Medicine
PROC: HZ2ZZZZ Detoxification Services for Substance Abuse Treatment (ICD-10-PCS; principal; 2017-01-06)
DX: F10.239 Alcohol dependence with withdrawal, unspecified (principal); K86.0 Alcohol-induced chronic pancreatitis; F19.10 Other psychoactive substance abuse, uncomplicated; K64.8 Other hemorrhoids; Y90.8 Blood alcohol level of 240 mg/100 ml or more

== ENCOUNTER 2017-01-10 01:41 | Observation (INO) | payer MEDICAID ==
[2017-01-10 01:41] VITALS: BMI 22.3
--- NOTE | 2017-01-10 02:00 | ED PDOC ---
Arrival/HPI - General Historian: Patient - History of Present Illness Time/Duration: Other (tonight) Symptom Onset: Gradual Symptom Course: Unchanged Activities at Onset: Light <Bart Keen - Last Filed: 01/10/17 06:53> <Lucas Santana - Last Filed: 01/10/17 07:35> - General Time Seen by Provider: 01/10/17 01:44 - History of Present Illness Narrative History of Present Illness (Text): 01/10/17 02:00 Samson Garcia is a 41 year old male, whose past medical history includes polysubstance abuse, alcohol abuse, and pancreatitis, who presents to the Emergency department complaining of alcohol intoxication. Patient admits to drinking alcohol throughout the day. Patient was recently admitted to the hospital on 01/05/17 for similar complaint and discharge home. Patient denies any suicidal ideation, homicidal ideation, fever, chills, chest pain, shortness of breath, nausea, vomiting, diarrhea, urinary symptoms, back pain, neck pain, headache, dizziness, or any other complaints. (Bart Keen) Past Medical History - Provider Review Nursing Documentation Reviewed: Yes - Infectious Disease Hx of Infectious Diseases: C.diff (Antigen +, toxin -) - Reproductive Currently : No - Cardiac Hx Cardiac Disorders: No - Pulmonary Hx Respiratory Disorders: No - Neurological Hx Neurological Disorder: No - HEENT Hx HEENT Disorder: Yes (wears glasses) - Renal Hx Renal Disorder: No - Endocrine/Metabolic Hx Endocrine Disorders: No - Hematological/Oncological Hx Blood Disorders: No - Integumentary Hx Dermatological Disorder: No (pt is not cooperative allowing me to see his full body) - Musculoskeletal/Rheumatological Hx Musculoskeletal Disorders: No Hx Falls: No Hx Unsteady Gait: Yes - Gastrointestinal Hx Gastrointestinal Disorders: Yes Hx Pancreatitis: Yes - Genitourinary/Gynecological Hx Genitourinary Disorders: No - Psychiatric Hx Anxiety: Yes Hx Substance Use: Yes - Anesthesia Hx Anesthesia: No <Bart Keen - Last Filed: 01/10/17 06:53> Family/Social History - Physician Review Nursing Documentation Reviewed: Yes Family/Social History: No Known Family HX Smoking Status: Current Some Days Smoker Hx Alcohol Use: Yes Hx Substance Use: Yes <Bart Keen - Last Filed: 01/10/17 06:53> Allergies/Home Meds <Bart Keen - Last Filed: 01/10/17 06:53> <Lucas Santana - Last Filed: 01/10/17 07:35> Allergies/Adverse Reactions: Allergies No Known Allergies Allergy (Verified 01/05/17 01:20) Review of Systems - Physician Review All systems were reviewed & negative as marked: Yes - Review of Systems Constitutional: Normal. absent: Fevers Eyes: Normal ENT: Normal Respiratory: Normal. absent: SOB, Cough Cardiovascular: Normal. absent: Chest Pain Gastrointestinal: Normal. absent: Abdominal Pain, Diarrhea, Nausea, Vomiting Genitourinary Male: Normal. absent: Dysuria, Frequency, Hematuria, Urinary Output Changes Musculoskeletal: Normal. absent: Back Pain, Neck Pain Skin: Normal. absent: Rash Neurological: Normal. absent: Headache, Dizziness Endocrine: Normal Hemo/Lymphatic: Normal Psychiatric: Normal <Bart Keen - Last Filed: 01/10/17 06:53> Physical Exam Vital Signs Reviewed: Yes Temperature: Afebrile Blood Pressure: Normal Pulse: Regular Respiratory Rate: Normal Appearance: Positive for: Well-Appearing, Comfortable Pain Distress: None Mental Status: Positive for: Alert and Oriented X 3 - Systems Exam Head: Present: Atraumatic, Normocephalic Pupils: Present: PERRL Extroacular Muscles: Present: EOMI Conjunctiva: Present: Normal Mouth: Present: Moist Mucous Membranes Neck: Present: Normal Range of Motion Respiratory/Chest: Present: Clear to Auscultation, Good Air Exchange. No: Respiratory Distress, Accessory Muscle Use Cardiovascular: Present: Regular Rate and Rhythm, Normal S1, S2. No: Murmurs Abdomen: Present: Normal Bowel Sounds. No: Tenderness, Distention, Peritoneal Signs Back: Present: Normal Inspection Upper Extremity: Present: Normal Inspection. No: Cyanosis, Edema Lower Extremity: Present: Normal Inspection. No: Edema Neurological: Present: GCS=15, CN II-XII Intact, Speech Normal Skin: Present: Warm, Dry, Normal Color. No: Rashes Psychiatric: Present: Alert, Oriented x 3, Intoxicated, Other (Slurring speech) <LeonilaBart - Last Filed: 01/10/17 06:53> Vital Signs Temp Pulse Resp BP Pulse Ox 01/10/17 01:56 98.5 F 108 H 20 128/78 98 Medical Decision Making <Bart Keen - Last Filed: 01/10/17 06:53> <Lucas Santana - Last Filed: 01/10/17 07:35> ED Course and Treatment: 01/10/17 02:00 Impression: 41 year old male complaining of alcohol intoxication. Differential Diagnosis include but are not limited to: alcohol intoxication Plan: -- Labs, alcohol level -- Reassess and disposition Prior Visits: Notes and results from previous visits were reviewed. On 01/05/2017, pt was seen in the Emergency department for alcohol intoxication and requesting alcohol detox. Pt was admitted to the hospital for further evaluation. (Bart Keen) ED OBSERVATION Date of observation admission: 01/10/17 Time of observation admission: 02:00 <Bart Keen - Last Filed: 01/10/17 06:53> Discharge: Yes <Lucas Santana - Last Filed: 01/10/17 07:35> - Observation admission statement Patient is being placed in observation because:: alcohol intoxication (Bart Keen) - Goals of Observation Goals of observation are:: sobriety, observe for signs of withdrawal (Bart Keen) - Progress Note Progress Note: 01/10/17 02:00 Pt presented for alcohol intoxication. Will observe pending sobriety. 01/10/17 04:00 Alcohol level: 269. Pt resting comfortably, no new complaints. 01/10/17 06:00 Pt resting comfortably, no new complaints. 01/10/17 07:[address] Santana, pending sobrietym re-evaluation, and final disposition. (Bart Keen) 01/10/17 07:00 Case endorsed to me by Dr. Keen. Patient pending sobriety, reevaluation and disposition. 01/10/17 07:33 Pt has been closely monitored throughout the stay in the ED. Currently pt is ANOx3 to person, place, and time. Has good insight and judgment. Denies suicidal or homicidal ideations. Pt has steady gait, ambulates without difficulty, not slurring speech. Pt able to tolerate PO without any difficulty. Patient denies any complaints at this time. Patient is not tremulous, not tachycardic, no signs or symptoms of alcohol withdrawal. Offered Librium prescription, but he states he does not want it. Pt states he understands to return to the ER right away for new or worsening symptoms or for inability to f/u with PMD or specialist as instructed. Patient states that he fully agrees with and understands discharge instructions. States that he agrees with the plan and disposition. Verbalized and repeated discharge instructions and plan. I have given the patient opportunity to ask any additional questions. (Lucas Santana) - Scribe Statement The provider has reviewed the documentation as recorded by the Scribe <Bart Keen - Last Filed: 01/10/17 06:53> <Lucas Santana - Last Filed: 01/10/17 07:35> - Scribe Statement Samina Preciado (Bart Keen) Provider Attestation: All medical record entries made by the Scribe were at my direction and personally dictated by me. I have reviewed the chart and agree that the record accurately reflects my personal performance of the history, physical exam, medical decision making, and the department course for this patient. I have also personally directed, reviewed, and agree with the discharge instructions and disposition. (Bart Keen) Disposition/Present on Arrival - Present on Arrival History of DVT/PE: No History of Uncontrolled Diabetes: No Urinary Catheter: No History Surgical Site Infection Following: None <Bart Keen - Last Filed: 01/10/17 06:53> - Present on Arrival Any Indicators Present on Arrival: No - Disposition Have Diagnosis and Disposition been Completed?: Yes Disposition Time: 02:00 Patient Plan: Discharge <Lucas Santana - Last Filed: 01/10/17 07:35> - Disposition Diagnosis: Alcohol intoxication Disposition: HOME/ ROUTINE Patient Problems: Current Active Problems Problem Status Diagnosed Alcohol intoxication Acute Alcohol withdrawal Acute Dizziness Acute Condition: GOOD
[2017-01-10 02:14] VITALS: TEMP 98.5; O2SAT 98
[2017-01-10 02:48] LABS: HEMATOCRIT 35.8 % (42.0-52.0); MEAN CELL VOLUME 98.6 fL (80.0-105.0); MEAN CORPUSCULAR HEMOGLOBIN 34.2 pg (25.0-35.0); MEAN CORPUSCULAR HGB CONC 34.6 g/dl (31.0-37.0); MEAN PLATELET VOLUME 9.1 fl (7.0-11.0); RED CELL DISTRIBUTION WIDTH 13.3 % (11.5-14.5); WHITE BLOOD COUNT 6.7 10^3/ul (4.5-11.0)
[2017-01-10 02:58] LABS: ALB/GLOB RATIO 1.1 (1.1-1.8); ALKALINE PHOSPHATASE 73 U/L (38-133); ALT/SGPT 80 U/L (7-56); AST/SGOT 137 U/L (15-59); BILIRUBIN,TOTAL 0.4 mg/dL (0.2-1.3); BLOOD UREA NITROGEN 8 mg/dL (7-21); CALCIUM 9.3 mg/dL (8.4-10.5); CARBON DIOXIDE 27 mmol/L (21-33); CHLORIDE 108 mmol/L (98-107); GFR AFRICAN-AMERICAN > 60; GLUCOSE,RANDOM 82 mg/dL (70-110); POTASSIUM 3.7 mmol/L (3.6-5.0); SODIUM 148 mmol/L (132-148); TOTAL PROTEIN 7.4 g/dL (5.8-8.3)
[2017-01-10 07:42] VITALS: BP 126/68; PULSE 88; RESP 18
== END 2017-01-10 07:55 | disposition home or self-care (01) ==
LOC: ED 01:41 → EROBSV 02:00
PROVIDERS: ADMIT Emergency Medicine; ATTEND Emergency Medicine
DX: F10.129 Alcohol abuse with intoxication, unspecified (principal); F19.10 Other psychoactive substance abuse, uncomplicated; Y90.8 Blood alcohol level of 240 mg/100 ml or more
CPT/HCPCS: 80053; 80320; 82948; 85027; 99285; G0378

== ENCOUNTER 2017-01-16 22:08 | Observation (INO) | payer MEDICAID ==
[2017-01-16 22:31] VITALS: BMI 23.0
[2017-01-16 22:49] VITALS: RESP 18
--- NOTE | 2017-01-16 23:06 | ED PDOC ---
Arrival/HPI - General Chief Complaint: Abdominal Pain Time Seen by Provider: 01/16/17 22:31 Historian: Patient - History of Present Illness Narrative History of Present Illness (Text): 01/16/17 23:05 Samson Garcia is a 41 year old male, whose past medical history includes polysubstance abuse, alcohol abuse, and pancreatitis, who presents to the Emergency department complaining of upper abdominal pain tonight. Patient notes he has also been vomiting green bile. Patient states symptoms are consistent with previous episodes of pancreatitis and notes he has drinks alcohol on a daily basis, last drink earlier tonight. Patient denies any fever, chills, chest pain, shortness of breath, diarrhea, urinary symptoms, back pain, neck pain, headache, dizziness, or any other complaints. Time/Duration: Other (tonight) Symptom Onset: Gradual Symptom Course: Unchanged Activities at Onset: Rest, Light Context: Home Past Medical History - Provider Review Nursing Documentation Reviewed: Yes - Infectious Disease Hx of Infectious Diseases: C.diff (Antigen +, toxin -) - Reproductive Currently : No - Cardiac Hx Cardiac Disorders: No - Pulmonary Hx Respiratory Disorders: No - Neurological Hx Neurological Disorder: No - HEENT Hx HEENT Disorder: Yes (wears glasses) - Renal Hx Renal Disorder: No - Endocrine/Metabolic Hx Endocrine Disorders: No - Hematological/Oncological Hx Blood Disorders: No - Integumentary Hx Dermatological Disorder: No (pt is not cooperative allowing me to see his full body) - Musculoskeletal/Rheumatological Hx Musculoskeletal Disorders: No Hx Falls: No Hx Unsteady Gait: Yes - Gastrointestinal Hx Gastrointestinal Disorders: Yes Hx Pancreatitis: Yes - Genitourinary/Gynecological Hx Genitourinary Disorders: No - Psychiatric Hx Anxiety: Yes Hx Substance Use: Yes - Anesthesia Hx Anesthesia: No Hx Anesthesia Reactions: No Hx Malignant Hyperthermia: No Family/Social History - Physician Review Nursing Documentation Reviewed: Yes Family/Social History: No Known Family HX Smoking Status: Current Some Days Smoker Hx Alcohol Use: Yes Hx Substance Use: Yes Allergies/Home Meds Allergies/Adverse Reactions: Allergies No Known Allergies Allergy (Verified 01/05/17 01:20) Review of Systems - Physician Review All systems were reviewed & negative as marked: Yes - Review of Systems Constitutional: Normal. absent: Fevers Eyes: Normal ENT: Normal Respiratory: Normal. absent: SOB, Cough Cardiovascular: Normal. absent: Chest Pain Gastrointestinal: Abdominal Pain, Nausea, Vomiting. absent: Diarrhea Genitourinary Male: Normal. absent: Dysuria, Frequency, Hematuria, Urinary Output Changes Musculoskeletal: Normal. absent: Back Pain, Neck Pain Skin: Normal. absent: Rash Neurological: Normal. absent: Headache, Dizziness Endocrine: Normal Hemo/Lymphatic: Normal Psychiatric: Normal Physical Exam Vital Signs Reviewed: Yes Vital Signs Temp Pulse Resp BP Pulse Ox 01/17/17 04:01 88 18 135/65 95 01/17/17 02:00 96 H 18 132/94 H 95 01/17/17 00:00 94 H 18 139/88 95 01/16/17 22:09 98.1 F 97 H 18 133/89 95 Temperature: Afebrile Blood Pressure: Normal Pulse: Regular Respiratory Rate: Normal Appearance: Positive for: Well-Appearing, Non-Toxic, Comfortable Pain Distress: None Mental Status: Positive for: Alert and Oriented X 3 - Systems Exam Head: Present: Atraumatic, Normocephalic Pupils: Present: PERRL Extroacular Muscles: Present: EOMI Conjunctiva: Present: Normal Mouth: Present: Moist Mucous Membranes Neck: Present: Normal Range of Motion Respiratory/Chest: Present: Clear to Auscultation, Good Air Exchange. No: Respiratory Distress, Accessory Muscle Use Cardiovascular: Present: Regular Rate and Rhythm, Normal S1, S2. No: Murmurs Abdomen: Present: Normal Bowel Sounds. No: Tenderness, Distention, Peritoneal Signs Back: Present: Normal Inspection Upper Extremity: Present: Normal Inspection. No: Cyanosis, Edema Lower Extremity: Present: Normal Inspection. No: Edema Neurological: Present: GCS=15, CN II-XII Intact, Speech Normal Skin: Present: Warm, Dry, Normal Color. No: Rashes Psychiatric: Present: Alert, Oriented x 3, Normal Insight, Normal Concentration Medical Decision Making ED Course and Treatment: 01/16/17 23:05 Impression: 41 year old male complaining of vomiting green bile and upper abdominal pain tonight. Differential Diagnosis include but are not limited to: pancreatitis Plan: -- EKG -- Labs, cardiac enzymes, amylase, lipase, blood cultures -- Urinalysis -- Reassess and disposition Prior Visits: Notes and results from previous visits were reviewed. On 01/10/2017, pt was seen in the Emergency department for alcohol intoxication. Pt was d/c home. Progress Notes: Reviewed EKG, NSR at [address]-segment elevations or depressions, no T-wave inversions, normal intervals. 01/17/17 02:13 residential support worker notified. Case discussed with Dr. Serrano, who is aware and agrees with plan. Accepts pt in to hospitalist service. Pt will go to [facility] observation for pancreatitis. - Lab Interpretations Lab Results: 01/16/17 23:28 01/16/17 23:28 Lab Results 01/17/17 00:06: Alcohol, Quantitative 323 H* 01/16/17 23:50: Urine Color Yellow, Urine Appearance Clear, Urine pH 6.5, Ur Specific [place] 1.015, Urine Protein Negative, Urine Glucose (UA) Negative, Urine Ketones Negative, Urine Blood Negative, Urine Nitrate Negative, Urine Bilirubin Negative, Urine Urobilinogen 0.2, Ur Leukocyte Esterase Negative 01/16/17 23:28: Sodium 148, Potassium 3.9, Chloride 110 H, Carbon Dioxide 27, Anion Gap 15, BUN 7, Creatinine 0.7, Est GFR ( Amer) > 60, Est GFR (Non- Af Amer) > 60, Random Glucose 90, Calcium 9.5, Total Bilirubin 0.5, AST 192 H, ALT 135 H, Alkaline Phosphatase 102, Lactate Dehydrogenase 875 H, Total Creatine Kinase 39, Troponin I < 0.01, Total Protein 7.6, Albumin 3.9, Globulin 3.7, Albumin/Globulin Ratio 1.1, Amylase 219 H, Lipase 455 H 01/16/17 23:28: PT 10.0, INR 0.93, APTT 25.4 01/16/17 23:28: WBC 7.7, RBC 3.91, Hgb 13.3 L, Hct 38.4 L, MCV 98.2, MCH 34.0, MCHC 34.6, RDW 13.9, Plt Count 270, MPV 8.9, Gran % 48.8 L, Lymph % (Auto) 34.0 , [place] % (Auto) 9.0 H, Eos % (Auto) 6.5 H, Baso % (Auto) 1.7, Gran # 3.75, Lymph # 2.6, [place] # 0.7 H, Eos # 0.5, Baso # 0.13 I have reviewed the lab results: Yes - EKG Interpretation Interpreted by ED Physician: Yes Type: 12 lead EKG - Medication Orders Current Medication Orders: Discontinued Medications Chlordiazepoxide (Librium) 25 mg PO TID [facility] PRN Reason: Protocol Last Admin: 01/17/17 10:12 Dose: 25 mg Docusate Sodium (Colace) 100 mg PO BID [facility] Last Admin: 01/17/17 10:05 Dose: 100 mg Enoxaparin Sodium (Lovenox) 40 mg SC DAILY [facility] PRN Reason: Protocol Last Admin: 01/17/17 10:06 Dose: 40 mg Famotidine (Pepcid) 20 mg PO BID [facility] Last Admin: 01/17/17 10:05 Dose: 20 mg Folic Acid (Folic Acid) 1 mg PO DAILY [facility] Last Admin: 01/17/17 10:05 Dose: 1 mg Sodium Chloride (Sodium Chloride 0.9%) 1,000 mls @ 150 mls/hr IV .Q6H40M [facility] Multivitamins/Vitamin C 10 ml/Thiamine HCl 100 mg/ Folic Acid 1 mg/ Sodium Chloride 1,011.2 mls @ 100 mls/hr IV .Q10H7M ONE Stop: 01/17/17 12:34 Sodium Chloride (Sodium Chloride 0.9%) 1,000 mls @ 125 mls/hr IV .Q8H [facility] Last Admin: 01/17/17 03:42 Dose: 125 mls/hr Multivitamins/Vitamin C 10 ml/Thiamine HCl 100 mg/ Folic Acid 1 mg/ Dextrose 1, 011.2 mls @ 150 mls/hr IV .Q6H45M ONE Stop: 01/17/17 16:12 Lorazepam (Ativan) 2 mg PO Q6H [facility] PRN Reason: Protocol Last Admin: 01/17/17 03:09 Dose: Not Given Non-Admin Reason: Patient Refused Lorazepam (Ativan) 1 mg IVP Q2H PRN; Protocol PRN Reason: Anxiety Lorazepam (Ativan) 1 mg IVP Q2H PRN; Protocol PRN Reason: Agitation Last Admin: 01/17/17 10:04 Dose: 1 mg Morphine Sulfate (Morphine) 2 mg IVP Q4H PRN PRN Reason: Pain, moderate (4-7) Multivitamins (Thera Tab) 1 tab PO DAILY [facility] Last Admin: 01/17/17 10:05 Dose: 1 tab Nicotine (Nicoderm Cq) 1 patch TD DAILY [facility] Nicotine (Nicoderm Cq) 1 patch TD STAT STA Stop: 01/16/17 23:57 Last Admin: 01/17/17 00:06 Dose: 1 patch Nicotine (Nicoderm Cq) 1 patch TD DAILY [facility] Last Admin: 01/17/17 10:05 Dose: 1 patch Ondansetron HCl (Zofran Inj) 4 mg IVP Q6 PRN PRN Reason: Nausea/Vomiting Pneumococcal Polyvalent Vaccine (Pneumovax 23 Vaccine) 0.5 ml IM .ONCE ONE Stop: 01/17/17 05:08 Thiamine HCl (Vitamin B1 Tab) 100 mg PO DAILY [facility] Last Admin: 01/17/17 10:05 Dose: 100 mg Thiamine HCl (Vitamin B1 Tab) 100 mg PO ONCE ONE Stop: 01/17/17 02:40 Last Admin: 01/17/17 02:45 Dose: Not Given Non-Admin Reason: Patient Refused - Scribe Statement The provider has reviewed the documentation as recorded by the Allyibjacob Preciado All medical record entries made by the Allyibjacob were at my direction and personally dictated by me. I have reviewed the chart and agree that the record accurately reflects my personal performance of the history, physical exam, medical decision making, and the department course for this patient. I have also personally directed, reviewed, and agree with the discharge instructions and disposition. Disposition/Present on Arrival - Present on Arrival Any Indicators Present on Arrival: No History of DVT/PE: No History of Uncontrolled Diabetes: No Urinary Catheter: No History of Decub. Ulcer: No History Surgical Site Infection Following: None - Disposition Have Diagnosis and Disposition been Completed?: Yes Diagnosis: Abdominal pain, Pancreatitis Disposition: HOSPITALIZED Disposition Time: 02:15 Condition: GOOD
[2017-01-16 23:35] LABS: ADD MANUAL DIFF? NO
[2017-01-16 23:56] LABS: ALB/GLOB RATIO 1.1 (1.1-1.8); ALKALINE PHOSPHATASE 102 U/L (38-133); ALT/SGPT 135 U/L (7-56); AMYLASE 219 U/L (35-125); AST/SGOT 192 U/L (15-59); BILIRUBIN,TOTAL 0.5 mg/dL (0.2-1.3); BLOOD UREA NITROGEN 7 mg/dL (7-21); CALCIUM 9.5 mg/dL (8.4-10.5); CARBON DIOXIDE 27 mmol/L (21-33); CHLORIDE 110 mmol/L (98-107); GFR AFRICAN-AMERICAN > 60; GLUCOSE,RANDOM 90 mg/dL (70-110); LIPASE 455 U/L (23-300); POTASSIUM 3.9 mmol/L (3.6-5.0); SODIUM 148 mmol/L (132-148); TOTAL PROTEIN 7.6 g/dL (5.8-8.3)
[2017-01-17 00:03] LABS: INR 0.93 (0.93-1.08); PARTIAL THROMBOPLASTIN TIME 25.4 Seconds (23.7-30.8)
[2017-01-17 00:04] LABS: BASO # 0.13 K/mm3 (0.0-2.0); BASO % 1.7 % (0.0-3.0); EOS # 0.5 (0.0-0.7); EOS % 6.5 % (1.5-5.0); GRAN # 3.75 (1.4-6.5); GRAN % 48.8 % (50.0-68.0); HEMATOCRIT 38.4 % (42.0-52.0); LYMPH # 2.6 (1.2-3.4); MEAN CELL VOLUME 98.2 fL (80.0-105.0); MEAN CORPUSCULAR HGB CONC 34.6 g/dl (31.0-37.0); MEAN PLATELET VOLUME 8.9 fl (7.0-11.0); MONO # 0.7 (0.1-0.6); PLATELET COUNT 270 10^3/uL (120.0-450.0); RED CELL DISTRIBUTION WIDTH 13.9 % (11.5-14.5); WHITE BLOOD COUNT 7.7 10^3/ul (4.5-11.0)
[2017-01-17 00:09] LABS: TROPONIN I < 0.01 ng/mL
[2017-01-17 00:10] LABS: PH,URINE 6.5 (4.7-8.0); URINE BILIRUBIN NEGATIVE (NEGATIVE); URINE BLOOD NEGATIVE (NEGATIVE); URINE GLUCOSE (UA) NEGATIVE (NEGATIVE); URINE KETONE NEGATIVE (NEGATIVE); URINE LEUKOCYTE ESTERASE NEGATIVE Leu/uL (NEGATIVE); URINE PROTEIN NEGATIVE mg/dL (<30 mg/dL); URINE UROBILINOGEN 0.2 E.U./dL (<1 E.U./dL)
[2017-01-17 00:11] LABS: URINE APPEARANCE CLEAR (CLEAR); URINE COLOR YELLOW (YELLOW)
[2017-01-17] MEDS ORDERED: Morphine 2 mg/ml ISec IVP PRN (02:24)
[2017-01-17] MEDS ORDERED: Multivitamin (MVI) 10 ML, Thiamine 100 MG, Folic Acid 1 MG in Sodium Chloride 0.9% 1,00... IV ONE ×2 (02:28→02:30)
[2017-01-17] MEDS ORDERED: Sodium Chloride 0.9% 1,000 ML IV SCH ×2 (02:30→02:45)
--- NOTE | 2017-01-17 02:49 | CP.PCM.HP ---
Addendum entered and electronically signed by Kelsie Cooper DO 01/17/17 03:10: Pt refused Ativan 2mg Q6H- stated it resulted in inability to walk. Pt requesting Librium- order submitted. Original Note: <Kelsie Cooper - Last Filed: 01/17/17 02:42> History of Present Illness - History of Present Illness History of Present Illness: Internal medicine H & P for Hospitalist Service- Kelsie Cooper, PGY-1 Pt S & E at bedside. 41 M with PMH sig for polysubstance abuse, chronic alcoholic pancreatitis, internal hemorrhoids admitted for abdominal pain x 1 week. Pain is mild- moderate, located over the upper abdomen, non radiating, intermittent. No alleviating factors identified. Aggravated by his daily ETOH use. Pt reports that today he had multiple (5-10) episodes of bilious emesis - he threw up "2 gallons of bile". Admits to SOB, constipation, headache, chest congestion, rhinorrhea, weakness. Denies N/F/C, CP, diarrhea, changes in vision, changes in urination, sore throat, trouble swallowing, wt changes, numbness/tingling, changes in appetite. PMH: Polysubstance abuse, chronic ETOH pancreatitis, ETOH abuse, internal hemorrhoids PSH: appointment at [facility] for hemorrhoid banding- to be scheduled All: NKDA SH: Admits to tobacco use: 1/2ppd x 20yrs, Admits to ETOH abuse- 750ml vodka daily, remote hx of cocaine, heroin, "powdered drugs" quit 5 yrs ago PMD: Yusuf Singh at [facility] Present on Admission - Present on Admission Any Indicators Present on Admission: No History of DVT/PE: No History of Uncontrolled Diabetes: No Urinary Catheter: No Decubitus Ulcer Present: No Review of Systems - Review of Systems All systems: reviewed and no additional remarkable complaints except - Constitutional Constitutional: Headache, Weakness. absent: Chills, Fever, Increased Appetite, Weight Gain, Weight Loss - EENT Eyes: absent: Blurred Vision, Diplopia, Spots in Vision Ears: absent: Dizziness Nose/Mouth/Throat: absent: Nasal Congestion, Dysphagia, Sore Throat - Cardiovascular Cardiovascular: absent: Chest Pain, Palpitations - Respiratory Respiratory: Chest Congestion. absent: Cough - Gastrointestinal Gastrointestinal: Abdominal Pain, Constipation, Vomiting. absent: Diarrhea, Hematemesis, Hematochezia, Melena, Nausea - Genitourinary Genitourinary: absent: Change in Urinary Stream, Dysuria, Hematuria - Musculoskeletal Musculoskeletal: absent: Neck Pain, Numbness, Tingling - Integumentary Integumentary: absent: Rash - Neurological Neurological: Headaches. absent: Dizziness Past Patient History - Infectious Disease Hx of Infectious Diseases: C.diff (Antigen +, toxin -) - Past Social History Smoking Status: Current Some Days Smoker - CARDIAC Hx Cardiac Disorders: No - PULMONARY Hx Respiratory Disorders: No - NEUROLOGICAL Hx Neurological Disorder: No - HEENT Hx HEENT Problems: Yes (wears glasses) - RENAL Hx Chronic Kidney Disease: No - ENDOCRINE/METABOLIC Hx Endocrine Disorders: No - HEMATOLOGICAL/ONCOLOGICAL Hx Blood Disorders: No - INTEGUMENTARY Hx Dermatological Problems: No (pt is not cooperative allowing me to see his full body) - MUSCULOSKELETAL/RHEUMATOLOGICAL Hx Musculoskeletal Disorders: No Hx Falls: No Hx Unsteady Gait: Yes - GASTROINTESTINAL Hx Gastrointestinal Disorders: Yes Hx Pancreatitis: Yes - GENITOURINARY/GYNECOLOGICAL Hx Genitourinary Disorders: No - PSYCHIATRIC Hx Anxiety: Yes Hx Substance Use: Yes - SURGICAL HISTORY Hx Surgeries: No - ANESTHESIA Hx Anesthesia: No Hx Anesthesia Reactions: No Hx Malignant Hyperthermia: No Meds Allergies/Adverse Reactions: Allergies Allergy/AdvReac Type Severity Reaction Status Date / Time No Known Allergies Allergy Verified 01/23/17 07:48 Physical Exam - Constitutional Appears: Well, Non-toxic, No Acute Distress - Head Exam Head Exam: ATRAUMATIC, NORMAL INSPECTION, NORMOCEPHALIC - Eye Exam Eye Exam: EOMI, Normal appearance, PERRL. absent: Scleral icterus Pupil Exam: NORMAL ACCOMODATION, PERRL - ENT Exam ENT Exam: Mucous Membranes Dry, Normal Exam - Neck Exam Neck exam: Positive for: Full Rom, Normal Inspection - Respiratory Exam Respiratory Exam: Clear to Auscultation Bilateral, NORMAL BREATHING PATTERN - Cardiovascular Exam Cardiovascular Exam: REGULAR RHYTHM, +S1, +S2 - GI/Abdominal Exam GI & Abdominal Exam: Normal Bowel Sounds, Soft. absent: Distended, Firm, Guarding, Hernia, Rebound, Rigid, Tenderness - Extremities Exam Extremities exam: Positive for: full ROM, normal inspection. Negative for: pedal edema - Back Exam Back exam: FULL ROM, NORMAL INSPECTION - Neurological Exam Neurological exam: Alert, CN II-XII Intact, Oriented x3 - Psychiatric Exam Psychiatric exam: Normal Affect, Normal Mood - Skin Skin Exam: Dry, Intact, Normal Color, Warm Results - Vital Signs Recent Vital Signs: Last Vital Signs Temp 98.1 F 01/16/17 22:09 Pulse 97 H 01/16/17 22:09 Resp 18 01/16/17 22:09 BP 133/89 01/16/17 22:09 Pulse Ox 95 01/16/17 22:09 - Labs Result Diagrams: 01/16/17 23:28 01/16/17 23:28 Labs: Laboratory Results - last 24 hr 01/16/17 01/16/17 01/16/17 23:28 23:28 23:28 WBC 7.7 RBC 3.91 Hgb 13.3 L Hct 38.4 L MCV 98.2 MCH 34.0 MCHC 34.6 RDW 13.9 Plt Count 270 MPV 8.9 Gran % 48.8 L Lymph % (Auto) 34.0 [place] % (Auto) 9.0 H Eos % (Auto) 6.5 H Baso % (Auto) 1.7 Gran # 3.75 Lymph # 2.6 [place] # 0.7 H Eos # 0.5 Baso # 0.13 PT 10.0 INR 0.93 APTT 25.4 Sodium 148 Potassium 3.9 Chloride 110 H Carbon Dioxide 27 Anion Gap 15 BUN 7 Creatinine 0.7 Est GFR ( Amer) > 60 Est GFR (Non-Af Amer) > 60 Random Glucose 90 Calcium 9.5 Total Bilirubin 0.5 AST 192 H ALT 135 H Alkaline Phosphatase 102 Lactate Dehydrogenase 875 H Total Creatine Kinase 39 Troponin I < 0.01 Total Protein 7.6 Albumin 3.9 Globulin 3.7 Albumin/Globulin Ratio 1.1 Amylase 219 H Lipase 455 H Urine Color Urine Appearance Urine pH Ur Specific [address] Urine Protein Urine Glucose (UA) Urine Ketones Urine Blood Urine Nitrate Urine Bilirubin Urine Urobilinogen Ur Leukocyte Esterase Alcohol, Quantitative 01/16/17 01/17/17 23:50 00:06 WBC RBC Hgb Hct MCV MCH MCHC RDW Plt Count MPV Gran % Lymph % (Auto) [place] % (Auto) Eos % (Auto) Baso % (Auto) Gran # Lymph # [place] # Eos # Baso # PT INR APTT Sodium Potassium Chloride Carbon Dioxide Anion Gap BUN Creatinine Est GFR ( Amer) Est GFR (Non-Af Amer) Random Glucose Calcium Total Bilirubin AST ALT Alkaline Phosphatase Lactate Dehydrogenase Total Creatine Kinase Troponin I Total Protein Albumin Globulin Albumin/Globulin Ratio Amylase Lipase Urine Color Yellow Urine Appearance Clear Urine pH 6.[address] 1.015 Urine Protein Negative Urine Glucose (UA) Negative Urine Ketones Negative Urine Blood Negative Urine Nitrate Negative Urine Bilirubin Negative Urine Urobilinogen 0.2 Ur Leukocyte Esterase Negative Alcohol, Quantitative 323 H* Assessment & Plan - Assessment and Plan (Free Text) Assessment: 41M w/PMH sig for polysubstance abuse, chronic alcoholic pancreatitis and internal hemmroids admitted for abdominal pain, multiple episodes of bilious emesis due to chronic ETOH pancreatitis. Pt currently stable. Plan: Abdominal pain due to ETOH abuse/chronic pancreatitis CIWA protocol Ativan 1mg Q2H PRN anxiety Ativan 2mg PO Q6H PAIGE- hold if pt lethargic MV Thiamine- to be started tonight Folic Acid NS@125 Morphine 2mg Q4H PRN Colace NPO UDS pos for benzos and ETOH - 323 Lipase 455 Amylase 219 AST 192 ALT 135 LDH 875 Neurochecks Q4H Seizure precautions Tobacco abuse Nicotine patch daily GI/DVT ppx Pepcid Lovenox SCDs Dispo Admit to Med-Surg VS Q8H Neuro checks Q4H Fall precautions Seizure precautions Monitor for withdrawal DW attending - Date & Time Date: 01/17/17 Time: 02:51 Decision To Admit - Pt Status Changed To: Hospital Disposition Of: Observation - . Bed Request Type: Med/Surg Admitting Physician: Kenneth Serrano <Kenneth Serrano - Last Filed: 01/25/17 19:39> Results - Vital Signs Recent Vital Signs: Last Vital Signs Temp 98.3 F 01/17/17 07:28 Pulse 95 H 01/17/17 07:28 Resp 18 01/17/17 07:28 BP 139/104 H 01/17/17 07:28 Pulse Ox 96 01/17/17 07:28 - Labs Result Diagrams: 01/16/17 23:28 01/16/17 23:28 Attending/Attestation - Attestation I have personally seen and examined this patient.: Yes I have fully participated in the care of the patient.: Yes I have reviewed all pertinent clinical information: Yes
[2017-01-17] MEDS ORDERED: Pneumococcal 23-Valent Vaccine IM ONE (05:07)
[2017-01-17 05:08] VITALS: BP 139/104; PULSE 95; TEMP 98.3
[2017-01-17 07:28] VITALS: O2SAT 96
[2017-01-17] MEDS ORDERED: Multivitamin (MVI) 10 ML, Thiamine 100 MG, Folic Acid 1 MG in Dextrose 5% In Water 1,00... IV ONE (09:28)
[2017-01-17] MEDS ORDERED: Enoxaparin 40 mg Syringe SC SCH (10:00)
[2017-01-17] MEDS ORDERED: Multivitamin Therapeutic Tab PO SCH (10:00)
--- NOTE | 2017-01-17 11:14 | CP.PCM.DIS ---
<Shree Feldman - Last Filed: 01/17/17 11:54> Provider - Provider Date of Admission: 01/17/17 02:11 Attending physician: Sheng London MD Primary care physician: Loren Profile Required Time Spent in preparation of Discharge (in minutes): 35 Hospital Course - Lab Results Lab Results: Most Recent Lab Values WBC 7.7 10^3/ul (4.5-11.0) 01/16/17: RBC 3.91 10^6/uL (3.5-6.1) 01/16/17 23: Hgb 13.3 gm/dL (14.0-18.0) L 01/16/17: Hct 38.4 % (42.0-52.0) L 01/16/17: MCV 98.2 fL (80.0-105.0) 01/16/17: MCH 34.0 pg (25.0-35.0) 01/16/17: MCHC 34.6 g/dl (31.0-37.0) 01/16/17: RDW 13.9 % (11.5-14.5) 01/16/17: Plt Count 270 10^3/uL (120.0-450.0) 01/16/17: MPV 8.9 fl (7.0-11.0) 01/16/17: Gran % 48.8 % (50.0-68.0) L 01/16/17: Lymph % (Auto) 34.0 % (22.0-35.0) 01/16/17: [place] % (Auto) 9.0 % (1.0-6.0) H 01/16/17: Eos % (Auto) 6.5 % (1.5-5.0) H 01/16/17: Baso % (Auto) 1.7 % (0.0-3.0) 01/16/17: Gran # 3.75 (1.4-6.5) 01/16/17: Lymph # 2.6 (1.2-3.4) 01/16/17 23: [place] # 0.7 (0.1-0.6) H 01/16/17 23:28 Eos # 0.5 (0.0-0.7) 01/16/17 23:28 Baso # 0.13 K/mm3 (0.0-2.0) 01/16/17 23:28 PT 10.0 Seconds (9.9-11.8) 01/16/17 23:28 INR 0.93 (0.93-1.08) 01/16/17 23:28 APTT 25.4 Seconds (23.7-30.8) 01/16/17 23:28 Sodium 148 mmol/L (132-148) 01/16/17 23:28 Potassium 3.9 mmol/L (3.6-5.0) 01/16/17 23:28 Chloride 110 mmol/L (98-107) H 01/16/17 23:28 Carbon Dioxide 27 mmol/L (21-33) 01/16/17 23:28 Anion Gap 15 (10-20) 01/16/17 23:28 BUN 7 mg/dL (7-21) 01/16/17 23:28 Creatinine 0.7 mg/dL (0.5-1.4) 01/16/17 23:28 Est GFR ( Amer) > 60 01/16/17 23:28 Est GFR (Non-Af Amer) > 60 01/16/17 23:28 Random Glucose 90 mg/dL (70-110) 01/16/17 23:28 Calcium 9.5 mg/dL (8.4-10.5) 01/16/17 23:28 Total Bilirubin 0.5 mg/dL (0.2-1.3) 01/16/17 23:28 AST 192 U/L (15-59) H 01/16/17 23:28 ALT 135 U/L (7-56) H 01/16/17 23:28 Alkaline Phosphatase 102 U/L (38-133) 01/16/17 23:28 Lactate Dehydrogenase 875 U/L (333-699) H 01/16/17 23:28 Total Creatine Kinase 39 U/L (35-230) 01/16/17 23:28 Troponin I < 0.01 ng/mL 01/16/17 23:28 Total Protein 7.6 g/dL (5.8-8.3) 01/16/17 23:28 Albumin 3.9 g/dL (3.0-4.8) 01/16/17 23:28 Globulin 3.7 gm/dL 01/16/17 23:28 Albumin/Globulin Ratio 1.1 (1.1-1.8) 01/16/17 23:28 Amylase 219 U/L (35-125) H 01/16/17 23:28 Lipase 169 U/L (23-300) 01/17/17 09:15 Urine Color Yellow (YELLOW) 01/16/17 23:50 Urine Appearance Clear (CLEAR) 01/16/17 23:50 Urine pH 6.5 (4.7-8.0) 01/16/17 23:50 Ur Specific [place] 1.015 (1.005-1.035) 01/16/17 23:50 Urine Protein Negative mg/dL (<30 mg/dL) 01/16/17 23:50 Urine Glucose (UA) Negative mg/dL (NEGATIVE) 01/16/17 23:50 Urine Ketones Negative mg/dL (NEGATIVE) 01/16/17 23:50 Urine Blood Negative (NEGATIVE) 01/16/17 23:50 Urine Nitrate Negative (NEGATIVE) 01/16/17 23:50 Urine Bilirubin Negative (NEGATIVE) 01/16/17 23:50 Urine Urobilinogen 0.2 E.U./dL (<1 E.U./dL) 01/16/17 23:50 Ur Leukocyte Esterase Negative Joyce/uL (NEGATIVE) 01/16/17 23:50 Alcohol, Quantitative 323 mg/dL (0-10) H* 01/17/17 00:06 - Hospital Course Hospital Course: H&P: 41 M with PMH sig for polysubstance abuse, chronic alcoholic pancreatitis, internal hemorrhoids admitted for abdominal pain x 1 week. Pain is mild- moderate, located over the upper abdomen, non radiating, intermittent. No alleviating factors identified. Aggravated by his daily ETOH use. Pt reports that today he had multiple (5-10) episodes of bilious emesis - he threw up "2 gallons of bile". Admits to SOB, constipation, headache, chest congestion, rhinorrhea, weakness. Denies N/F/C, CP, diarrhea, changes in vision, changes in urination, sore throat, trouble swallowing, wt changes, numbness/tingling, changes in appetite. Hospital course: Patient is a 41 y/o M with multiple hospitalizations due to chronic alcoholism, chronic alcohol pancreatitis, and polysubstance abuse who presented with complaint of abdominal pain, nausea, and vomiting. An initial EKG was performed showing normal sinus rhythm. He was found to have elevated liver enzymes, amylase, lipase, and intoxicated. He was started on IV fluids and made NPO. An abdominal ultrasound was ordered. He became irate and demanded to leave. He was advised to stay for further evaluation of his GI symptoms and he continued to insist upon leaving and wished to sign out against medical advice. He proceeded to roll a cigarette in the room. He was explained the risks of leaving, including but not limited to fall, TBI, withdrawal seizures, GI bleed, exsanguination, arrythmia, [place], stroke, and . He was advised to stop alcohol , tobacco, and drug use. He verbalized understanding and signed out AMA. This is a brief summary of the patient's stay at this facility. For more detail , see patient's full chart. - Date & Time of H&P Date of H&P: 01/17/17 Time of H&P: 02:42 Discharge Exam - Head Exam Head Exam: ATRAUMATIC, NORMAL INSPECTION, NORMOCEPHALIC - Eye Exam Eye Exam: Conjunctival injection, EOMI, Normal appearance Pupil Exam: NORMAL ACCOMODATION, PERRL - ENT Exam ENT Exam: Mucous Membranes Dry - Respiratory Exam Respiratory Exam: NORMAL BREATHING PATTERN. absent: Rales, Rhonchi, Wheezes - Cardiovascular Exam Cardiovascular Exam: REGULAR RHYTHM, +S1, +S2 - GI/Abdominal Exam GI & Abdominal Exam: Soft. absent: Distended, Guarding, Tenderness - Extremities Exam Extremities exam: normal capillary refill, normal inspection, pedal pulses present - Neurological Exam Neurological exam: Alert, CN II-XII Intact, Oriented x3 - Psychiatric Exam Psychiatric exam: Agitated, Anxious - Skin Skin Exam: Dry, Intact, Normal Color, Warm Discharge Plan - Follow Up Plan Condition: GOOD Disposition: AGAINST MEDICAL ADVICE Instructions: Acute Abdominal Pain (DC), Acute Abdominal Pain (GEN) Referrals: [facility] Bryon Butler, [Primary Care Provider] - <Sheng London - Last Filed: 01/17/17 12:19> Provider - Provider Date of Admission: 01/17/17 02:11 Attending physician: Sheng London MD Primary care physician: Loren Profile Required Hospital Course - Lab Results Lab Results: Most Recent Lab Values WBC 7.7 10^3/ul (4.5-11.0) 01/16/17 23: RBC 3.91 10^6/uL (3.5-6.1) 01/16/17 23: Hgb 13.3 gm/dL (14.0-18.0) L 01/16/17 23: Hct 38.4 % (42.0-52.0) L 01/16/17 23: MCV 98.2 fL (80.0-105.0) 01/16/17: MCH 34.0 pg (25.0-35.0) 01/16/17: MCHC 34.6 g/dl (31.0-37.0) 01/16/17: RDW 13.9 % (11.5-14.5) 01/16/17 23: Plt Count 270 10^3/uL (120.0-450.0) 01/16/17 23: MPV 8.9 fl (7.0-11.0) 01/16/17: Gran % 48.8 % (50.0-68.0) L 01/16/17: Lymph % (Auto) 34.0 % (22.0-35.0) 01/16/17 23: [place] % (Auto) 9.0 % (1.0-6.0) H 01/16/17: Eos % (Auto) 6.5 % (1.5-5.0) H 01/16/17: Baso % (Auto) 1.7 % (0.0-3.0) 01/16/17: Gran # 3.75 (1.4-6.5) 01/16/17 23: Lymph # 2.6 (1.2-3.4) 01/16/17 23:28 [place] # 0.7 (0.1-0.6) H 01/16/17 23: Eos # 0.5 (0.0-0.7) 01/16/17 23:28 Baso # 0.13 K/mm3 (0.0-2.0) 01/16/17 23:28 PT 10.0 Seconds (9.9-11.8) 01/16/17 23:28 INR 0.93 (0.93-1.08) 01/16/17 23:28 APTT 25.4 Seconds (23.7-30.8) 01/16/17 23:28 Sodium 148 mmol/L (132-148) 01/16/17 23:28 Potassium 3.9 mmol/L (3.6-5.0) 01/16/17 23:28 Chloride 110 mmol/L (98-107) H 01/16/17 23:28 Carbon Dioxide 27 mmol/L (21-33) 01/16/17 23:28 Anion Gap 15 (10-20) 01/16/17 23:28 BUN 7 mg/dL (7-21) 01/16/17 23:28 Creatinine 0.7 mg/dL (0.5-1.4) 01/16/17 23:28 Est GFR ( Amer) > 60 01/16/17 23:28 Est GFR (Non-Af Amer) > 60 01/16/17 23:28 Random Glucose 90 mg/dL (70-110) 01/16/17 23:28 Calcium 9.5 mg/dL (8.4-10.5) 01/16/17 23:28 Total Bilirubin 0.5 mg/dL (0.2-1.3) 01/16/17 23:28 AST 192 U/L (15-59) H 01/16/17 23:28 ALT 135 U/L (7-56) H 01/16/17 23:28 Alkaline Phosphatase 102 U/L (38-133) 01/16/17 23:28 Lactate Dehydrogenase 875 U/L (333-699) H 01/16/17 23:28 Total Creatine Kinase 39 U/L (35-230) 01/16/17 23:28 Troponin I < 0.01 ng/mL 01/16/17 23:28 Total Protein 7.6 g/dL (5.8-8.3) 01/16/17 23:28 Albumin 3.9 g/dL (3.0-4.8) 01/16/17 23:28 Globulin 3.7 gm/dL 01/16/17 23:28 Albumin/Globulin Ratio 1.1 (1.1-1.8) 01/16/17 23:28 Amylase 219 U/L (35-125) H 01/16/17 23:28 Lipase 169 U/L (23-300) 01/17/17 09:15 Urine Color Yellow (YELLOW) 01/16/17 23:50 Urine Appearance Clear (CLEAR) 01/16/17 23:50 Urine pH 6.5 (4.7-8.0) 01/16/17 23:50 Ur Specific [place] 1.015 (1.005-1.035) 01/16/17 23:50 Urine Protein Negative mg/dL (<30 mg/dL) 01/16/17 23:50 Urine Glucose (UA) Negative mg/dL (NEGATIVE) 01/16/17 23:50 Urine Ketones Negative mg/dL (NEGATIVE) 01/16/17 23:50 Urine Blood Negative (NEGATIVE) 01/16/17 23:50 Urine Nitrate Negative (NEGATIVE) 01/16/17 23:50 Urine Bilirubin Negative (NEGATIVE) 01/16/17 23:50 Urine Urobilinogen 0.2 E.U./dL (<1 E.U./dL) 01/16/17 23:50 Ur Leukocyte Esterase Negative Joyce/uL (NEGATIVE) 01/16/17 23:50 Alcohol, Quantitative 323 mg/dL (0-10) H* 01/17/17 00:06 Attending/Attestation - Attestation I have personally seen and examined this patient.: Yes I have fully participated in the care of the patient.: Yes I have reviewed all pertinent clinical information, including history, physical exam and plan: Yes Notes (Text): 01/17/17 12:09 41 year old male with past medical history of polysubstance abuse and chronic ETOH abuse who presented with alcohol intoxication and abdominal pain. LFTs and lipase were elevated and he was admitted for pancreatitis. He was NPO on iv fluids. US abdomen was ordered. Patient was seen earlier this morning with the resident. He was counselled on alcohol abstinence. He was pending US abdomen. He later expressed wishes to sign out AMA. He was seen by the resident who explained to him the risks of signing out but he signed out AMA. Sheng London MD Hospitalist.
--- NOTE | 2017-01-17 22:09 | CARD ---
APPROVED REPORT EKG Measurement Heart [id number] <Conclusion> Normal sinus rhythm Normal ECG
== END 2017-01-17 10:47 | disposition left against medical advice (07) ==
LOC: ED 22:08 → ERH 01-17 02:11 → 5RNO 01-17 04:44
PROVIDERS: ADMIT Internal Medicine; ATTEND Internal Medicine
DX: K86.0 Alcohol-induced chronic pancreatitis (principal); F10.229 Alcohol dependence with intoxication, unspecified; Y90.8 Blood alcohol level of 240 mg/100 ml or more; K64.8 Other hemorrhoids; F17.210 Nicotine dependence, cigarettes, uncomplicated
CPT/HCPCS: 80053; 80320; 81003; 82150; 82550; 83615; 83690; 84484; 85025; 85610; 85730; 87040; 93005; 99285; G0378; J1650; J2060; J7040

== ENCOUNTER 2017-01-23 07:33 | Emergency (ER) | payer MEDICAID ==
[2017-01-23 07:42] VITALS: BMI 24.3
[2017-01-23 07:48] VITALS: TEMP 97.9; O2SAT 97
[2017-01-23 10:03] VITALS: BP 128/80; PULSE 96; RESP 18
--- NOTE | 2017-01-23 11:27 | ED PDOC ---
Arrival/HPI - General Chief Complaint: Med Refill Time Seen by Provider: 01/23/17 07:58 Historian: Patient - History of Present Illness Narrative History of Present Illness (Text): 01/23/17 09:42 A 41 year old male, whose past medical history includes polysubstance abuse, alcohol abuse and pancreatitis, presents to the emergency department requesting medication refills of Librium, Narcan, Thiamine and Folic acid. Patient states he called the nursing green end department supervisor yesterday who instructed him to come in to the emergency room. On evaluation, patient's story changed numerous times. He states he will see his PMD in 5 days. Patient denies any fever, nausea, vomiting , abdominal pain, urinary symptoms, chest pain, shortness of breath or any other physical complaints. Medical records show patient left AMA from hospital 2 weeks ago and did not follow up with admitting doctor. PMD: No-[facility] provider Time/Duration: Prior to Arrival Symptom Course: Unchanged Quality: Other Context: Other Past Medical History - Provider Review Nursing Documentation Reviewed: Yes - Infectious Disease Hx of Infectious Diseases: C.diff (Antigen +, toxin -) - Reproductive Currently : No - Cardiac Hx Cardiac Disorders: No - Pulmonary Hx Respiratory Disorders: No - Neurological Hx Neurological Disorder: No - HEENT Hx HEENT Disorder: Yes (wears glasses) - Renal Hx Renal Disorder: No - Endocrine/Metabolic Hx Endocrine Disorders: No - Hematological/Oncological Hx Blood Disorders: No - Integumentary Hx Dermatological Disorder: No (pt is not cooperative allowing me to see his full body) - Musculoskeletal/Rheumatological Hx Musculoskeletal Disorders: Yes Hx Falls: No Hx Unsteady Gait: Yes - Gastrointestinal Hx Pancreatitis: Yes - Genitourinary/Gynecological Hx Genitourinary Disorders: No - Psychiatric Hx Anxiety: Yes Hx Substance Use: Yes - Anesthesia Hx Anesthesia: No Hx Anesthesia Reactions: No Hx Malignant Hyperthermia: No Family/Social History - Physician Review Nursing Documentation Reviewed: Yes Family/Social History: No Known Family HX Smoking Status: Current Some Days Smoker Hx Alcohol Use: Yes Hx Substance Use: Yes Allergies/Home Meds Allergies/Adverse Reactions: Allergies No Known Allergies Allergy (Verified 01/23/17 07:48) Review of Systems - Physician Review All systems were reviewed & negative as marked: Yes - Review of Systems Constitutional: Normal. absent: Fevers, Night Sweats Respiratory: absent: SOB Cardiovascular: absent: Chest Pain Gastrointestinal: absent: Abdominal Pain, Diarrhea, Nausea, Vomiting Genitourinary Male: absent: Dysuria, Frequency, Hematuria, Urinary Output Changes Physical Exam Vital Signs Reviewed: Yes Vital Signs Temp Pulse Resp BP Pulse Ox 01/23/17 10:01 96 H 18 128/80 97 01/23/17 07:42 97.9 F 98 H 20 130/90 97 Temperature: Afebrile Blood Pressure: Normal Pulse: Tachycardic Respiratory Rate: Normal Appearance: Positive for: Well-Appearing, Non-Toxic, Comfortable Pain Distress: None Mental Status: Positive for: Alert and Oriented X 3 - Systems Exam Head: Present: Atraumatic, Normocephalic Pupils: Present: PERRL Extroacular Muscles: Present: EOMI Conjunctiva: Present: Normal Mouth: Present: Moist Mucous Membranes Neck: Present: Normal Range of Motion Respiratory/Chest: Present: Clear to Auscultation, Good Air Exchange. No: Respiratory Distress, Accessory Muscle Use Cardiovascular: Present: Regular Rate and Rhythm, Normal S1, S2. No: Murmurs Abdomen: Present: Normal Bowel Sounds. No: Tenderness, Distention, Peritoneal Signs Back: Present: Normal Inspection Upper Extremity: Present: Normal Inspection. No: Cyanosis, Edema Lower Extremity: Present: Normal Inspection. No: Edema Neurological: Present: GCS=15, CN II-XII Intact, Speech Normal Skin: Present: Warm, Dry, Normal Color. No: Rashes Psychiatric: Present: Alert, Oriented x 3, Normal Insight, Normal Concentration Medical Decision Making ED Course and Treatment: 01/23/17 09:42 Impression: A 41 year old male requesting medication refill. Patient denies any physical complaints. Plan: -- Librium, Folic acid and Thiamine -- Reassess and disposition Progress Notes: 01/23/17 10:00 I have discussed the plan with the patient, who expresses understanding. Patient in agreement with plan to be discharged home. Patient is stable for discharge. Patient was instructed to follow up with PMD for medication refill. - Medication Orders Current Medication Orders: Discontinued Medications Chlordiazepoxide (Librium) 25 mg PO STAT STA PRN Reason: Protocol Stop: 01/23/17 09:43 Last Admin: 01/23/17 10:01 Dose: 25 mg Folic Acid (Folic Acid) 1 mg PO STAT STA Stop: 01/23/17 09:43 Last Admin: 01/23/17 10:01 Dose: 1 mg Thiamine HCl (Vitamin B1 Tab) 100 mg PO STAT STA Stop: 01/23/17 09:43 Last Admin: 01/23/17 10:01 Dose: 100 mg - Scribe Statement The provider has reviewed the documentation as recorded by the Susan Jessica Provider Scribe Attestation: All medical record entries made by the Scribe were at my direction and personally dictated by me. I have reviewed the chart and agree that the record accurately reflects my personal performance of the history, physical exam, medical decision making, and the department course for this patient. I have also personally directed, reviewed, and agree with the discharge instructions and disposition. Disposition/Present on Arrival - Present on Arrival Any Indicators Present on Arrival: No History of DVT/PE: No History of Uncontrolled Diabetes: No Urinary Catheter: No History of Decub. Ulcer: No History Surgical Site Infection Following: None - Disposition Have Diagnosis and Disposition been Completed?: Yes Diagnosis: Drug dependence Disposition: HOME/ ROUTINE Disposition Time: 08:30 Condition: GOOD Discharge Instructions (ExitCare): Polysubstance Abuse (ED) Additional Instructions: Thank you for letting us take care of you today. You were treated for polysubstance abuse. The emergency medical care you received today was directed at your acute symptoms. If you were prescribed any medication, please fill it and take as directed. It may take several days for your symptoms to resolve. Return to the Emergency Department if your symptoms worsen, do not improve, or if you have any other problems. Please contact your doctor or call one of the physicians/clinics you have been referred to that are listed on the Patient Visit Information form that is included in your discharge packet. Bring any paperwork you were given at discharge with you along with any medications you are taking to your follow up visit. Our treatment cannot replace ongoing medical care by a primary care provider (PCP) outside of the emergency department. Thank you for allowing the [facility] team to be part of your care today. Follow up with your doctor or the clinic in 2 days for prescription refill. Referrals: [facility] [Outside] - Follow up with primary at [facility] [Outside] - Follow up with primary
== END 2017-01-23 10:03 | disposition home or self-care (01) ==
LOC: ED 07:33
DX: F19.20 Other psychoactive substance dependence, uncomplicated (principal)

== ENCOUNTER 2017-02-02 19:56 | Observation (INO) | payer MEDICAID ==
[2017-02-02 20:01] VITALS: BMI 23.0
--- NOTE | 2017-02-02 20:42 | ED PDOC ---
Arrival/HPI - General Historian: Patient - History of Present Illness Time/Duration: 4-6 hours Symptom Onset: Gradual Symptom Course: Unchanged Activities at Onset: Light Context: Home <Bart Keen - Last Filed: 02/03/17 05:55> <Kory Burt - Last Filed: 02/03/17 07:30> - General Chief Complaint: Abdominal Pain Time Seen by Provider: 02/02/17 20:04 - History of Present Illness Narrative History of Present Illness (Text): 02/02/17 20:06 Samson Garcia is a 41 year old male, whose past medical history includes alcohol abuse , who presents to the emergency department complaining of nausea, vomiting, diarrhea, and abdominal discomfort for a few hours. Patient states that he had been drinking throughout the day. Patient denies any chest pain, shortness of breath, fevers, chills, or any other complaint at this time. (Bart Keen) Past Medical History - Provider Review Nursing Documentation Reviewed: Yes - Infectious Disease Hx of Infectious Diseases: C.diff (Antigen +, toxin -) - Reproductive Currently : No - Cardiac Hx Cardiac Disorders: No - Pulmonary Hx Respiratory Disorders: No - Neurological Hx Neurological Disorder: No - HEENT Hx HEENT Disorder: Yes (wears glasses) - Renal Hx Renal Disorder: No - Endocrine/Metabolic Hx Endocrine Disorders: No - Hematological/Oncological Hx Blood Disorders: No - Integumentary Hx Dermatological Disorder: No - Musculoskeletal/Rheumatological Hx Musculoskeletal Disorders: Yes Hx Falls: No Hx Unsteady Gait: Yes - Gastrointestinal Hx Gastrointestinal Disorders: Yes Hx Pancreatitis: Yes - Genitourinary/Gynecological Hx Genitourinary Disorders: No - Psychiatric Hx Psychophysiologic Disorder: Yes Hx Anxiety: Yes Hx Substance Use: No (denies) - Anesthesia Hx Anesthesia: No Hx Anesthesia Reactions: No Hx Malignant Hyperthermia: No <Bart Keen - Last Filed: 02/03/17 05:55> Family/Social History - Physician Review Nursing Documentation Reviewed: Yes Family/Social History: No Known Family HX Smoking Status: Heavy Smoker > 10 Cigarettes Daily Hx Alcohol Use: Yes Frequency of alcohol use: Daily Hx Substance Use: No (denies) <Bart Keen - Last Filed: 02/03/17 05:55> Allergies/Home Meds <Bart Keen - Last Filed: 02/03/17 05:55> <Kory Burt - Last Filed: 02/03/17 07:30> Allergies/Adverse Reactions: Allergies No Known Allergies Allergy (Verified 02/02/17 20:01) Home Medications: Home Meds Medication Instructions Recorded Confirmed LORazepam [Ativan] 0.5 mg PO PRN PRN 02/02/17 02/02/17 chlordiazePOXIDE [Chlordiazepoxide 25 mg PO PRN PRN 02/02/17 02/02/17 HCl] Review of Systems - Review of Systems Constitutional: absent: Fevers, Night Sweats Eyes: absent: Vision Changes ENT: absent: Hearing Changes Respiratory: absent: SOB, Cough Cardiovascular: absent: Chest Pain Gastrointestinal: Abdominal Pain, Diarrhea, Nausea, Vomiting Genitourinary Male: absent: Urinary Output Changes Musculoskeletal: absent: Back Pain, Neck Pain Skin: absent: Rash Neurological: absent: Headache Endocrine: absent: Diaphoresis Hemo/Lymphatic: absent: Easy Bleeding Psychiatric: absent: Depression <Bart Keen Last Filed: 02/03/17 05:55> Physical Exam Vital Signs Reviewed: Yes Temperature: Afebrile Blood Pressure: Normal Pulse: Tachycardic Respiratory Rate: Normal Appearance: Positive for: Well-Appearing, Non-Toxic, Comfortable Pain Distress: None Mental Status: Positive for: Alert and Oriented X 3, other (Intoxicated) - Systems Exam Head: Present: Atraumatic, Normocephalic Pupils: Present: PERRL Extroacular Muscles: Present: EOMI Conjunctiva: Present: Normal Mouth: Present: Moist Mucous Membranes Neck: Present: Normal Range of Motion Respiratory/Chest: Present: Clear to Auscultation, Good Air Exchange. No: Respiratory Distress, Accessory Muscle Use Cardiovascular: Present: Regular Rate and Rhythm, Normal S1, S2. No: Murmurs Abdomen: Present: Normal Bowel Sounds. No: Tenderness, Distention, Peritoneal Signs Back: Present: Normal Inspection Upper Extremity: Present: Normal Inspection. No: Cyanosis, Edema Lower Extremity: Present: Normal Inspection. No: Edema Neurological: Present: GCS=15, CN II-XII Intact, Speech Normal Skin: Present: Warm, Dry, Normal Color. No: Rashes Psychiatric: Present: Alert, Oriented x 3, Normal Insight, Normal Concentration , Intoxicated <Bart Keen Last Filed: 02/03/17 05:55> Medical Decision Making - Lab Interpretations I have reviewed the lab results: Yes <Bart Keen - Last Filed: 02/03/17 05:55> <Kory Burt - Last Filed: 02/03/17 07:30> ED Course and Treatment: 02/02/17 20:05 Impression: 41 year old male complaining of nausea, vomiting, diarrhea, and abdominal discomfort for a few hours Differential Diagnosis included but are not limited to: Alcohol abuse vs. Gastroenteritis vs. Pancreatitis Plan: -- Labs -- Dextrose, Pepcid, Toradol, Zofran -- Reassess and disposition Prior Visits: Notes and results from previous visits were reviewed. Patient last seen in the ED on 01/23/17 requesting medication refills of Librium, Narcan, Thiamine and Folic acid. On evaluation, patient's story changed numerous times. Patient was discharged home. (Bart Keen) - Lab Interpretations Lab Results: 02/02/17 21:27 02/02/17 21:27 Lab Results 02/02/17 21:27: Lactate Dehydrogenase 706 H, Total Creatine Kinase 81, Troponin I < 0.01 02/02/17 21:27: Alcohol, Quantitative 333 H* 02/02/17 21:27: WBC 6.5, RBC 4.11, Hgb 14.3, Hct 40.6 L, MCV 98.8, MCH 34.8, MCHC 35.2, RDW 14.0, Plt Count 222, MPV 9.5 02/02/17 21:27: Sodium 146, Potassium 3.4 L, Chloride 105, Carbon Dioxide 26, Anion Gap 18, BUN 8, Creatinine 0.7, Est GFR ( Amer) > 60, Est GFR (Non- Af Amer) > 60, Random Glucose 80, Calcium 9.3, Total Bilirubin 0.6, AST 114 H, ALT 84 H, Alkaline Phosphatase 77, Total Protein 8.4 H, Albumin 4.5, Globulin 3.9, Albumin/Globulin Ratio 1.2, Lipase 136 - Medication Orders Current Medication Orders: Folic Acid 1 mg/ Thiamine HCl 100 mg/ Multivitamins/Vitamin C 10 ml/ Dextrose 1 ,011.2 mls @ 100 mls/hr IV .[id number] [facility] Last Admin: 02/02/17 21:46 Dose: 100 mls/hr Discontinued Medications Famotidine (Pepcid) 20 mg IVP STAT STA Stop: 02/02/17 20:36 Last Admin: 02/02/17 21:29 Dose: 20 mg Ketorolac Tromethamine (Toradol) 30 mg IVP ONCE ONE Stop: 02/02/17 20:36 Last Admin: 02/02/17 21:27 Dose: 30 mg Ondansetron HCl (Zofran Inj) 4 mg IVP ONCE ONE Stop: 02/02/17 20:36 Last Admin: 02/02/17 21:28 Dose: 4 mg Potassium Chloride (K-Dur 20 Meq Er Tab) 20 meq PO STAT STA Stop: 02/02/17 22:40 Last Admin: 02/02/17 23:18 Dose: 20 meq Ziprasidone (Geodon Inj) 20 mg IM STAT STA PRN Reason: Protocol Stop: 02/02/17 23:27 Last Admin: 02/02/17 23:57 Dose: 20 mg ED OBSERVATION Date of observation admission: 02/02/17 Time of observation admission: 20:35 <Bart Keen - Last Filed: 02/03/17 05:55> Discharge: Yes <Kory Burt - Last Filed: 02/03/17 07:30> - Observation admission statement Patient is being placed in observation because:: alcohol intoxication (Bart Keen) - Goals of Observation Goals of observation are:: observe for signs of withdrawal, sobriety (Bart Keen) - Progress Note Progress Note: 02/02/17 20:35 Pt presented for alcohol intoxication. Will observe pending sobriety. 02/02/17 22:18 Reviewed EKG, sinus tachycardia at [address]pm[address] LAD. Non-specific ST/T wave changes. Alcohol level: 333. 02/02/17 23:52 Pt becoming aggresive, attempting to abscond from ER. Code Castañeda called. Pt restrained and sedated. 02/03/17 01:49 Pt resting comfortably, no acute distress 02/03/17 03:50 Pt resting comfortably, no acute distress. Stable vital signs. 02/03/17 05:50 Pt resting comfortably, no acute distress 02/03/17 07:[address] Imm, pending sobriety, re-evaluation, and final disposition. (Bart Keen) 02/03/17 07:08 Case signed out to me by , awaiting sobriety, reevaluation and disposition. 02/03/17 07:30 Patient awake, alert, steady gait, would like to leave. (Kory Burt) - Scribe Statement The provider has reviewed the documentation as recorded by the Scribe <Bart Keen - Last Filed: 02/03/17 05:55> <Kory Burt - Last Filed: 02/03/17 07:30> - Scribe Statement Romi Guido Provider Scribe Attestation: All medical record entries made by the Scribe were at my direction and personally dictated by me. I have reviewed the chart and agree that the record accurately reflects my personal performance of the history, physical exam, medical decision making, and the department course for this patient. I have also personally directed, reviewed, and agree with the discharge instructions and disposition. (Bart Keen) Disposition/Present on Arrival - Present on Arrival History of DVT/PE: No History of Uncontrolled Diabetes: No Urinary Catheter: No History of Decub. Ulcer: No History Surgical Site Infection Following: None <Bart Keen - Last Filed: 02/03/17 05:55> - Present on Arrival Any Indicators Present on Arrival: No - Disposition Have Diagnosis and Disposition been Completed?: Yes Disposition Time: 07:30 Patient Plan: Discharge <Kory Burt - Last Filed: 02/03/17 07:30> - Disposition Diagnosis: Alcohol intoxication Disposition: HOME/ ROUTINE Condition: STABLE
[2017-02-02] MEDS ORDERED: Folic Acid 1 MG, Thiamine 100 MG, Multivitamin (MVI) 10 ML in Dextrose 5% In Water 1,00... IV SCH (20:45)
[2017-02-02 21:22] VITALS: TEMP 98.3
[2017-02-02 22:02] LABS: ALB/GLOB RATIO 1.2 (1.1-1.8); ALKALINE PHOSPHATASE 77 U/L (38-133); ALT/SGPT 84 U/L (7-56); AST/SGOT 114 U/L (15-59); BILIRUBIN,TOTAL 0.6 mg/dL (0.2-1.3); BLOOD UREA NITROGEN 8 mg/dL (7-21); CALCIUM 9.3 mg/dL (8.4-10.5); CARBON DIOXIDE 26 mmol/L (21-33); CHLORIDE 105 mmol/L (98-107); GFR AFRICAN-AMERICAN > 60; GLUCOSE,RANDOM 80 mg/dL (70-110); LIPASE 136 U/L (23-300); POTASSIUM 3.4 mmol/L (3.6-5.0); SODIUM 146 mmol/L (132-148); TOTAL PROTEIN 8.4 g/dL (5.8-8.3)
[2017-02-02 22:18] LABS: HEMATOCRIT 40.6 % (42.0-52.0); MEAN CELL VOLUME 98.8 fL (80.0-105.0); MEAN CORPUSCULAR HEMOGLOBIN 34.8 pg (25.0-35.0); MEAN CORPUSCULAR HGB CONC 35.2 g/dl (31.0-37.0); MEAN PLATELET VOLUME 9.5 fl (7.0-11.0); WHITE BLOOD COUNT 6.5 10^3/ul (4.5-11.0)
[2017-02-02] MEDS ORDERED: Potassium Chloride 20 mEq ER Tab PO STA (22:39)
[2017-02-02 23:21] LABS: TROPONIN I < 0.01 ng/mL
[2017-02-03 07:32] VITALS: BP 138/97; PULSE 87; RESP 18; O2SAT 97
--- NOTE | 2017-02-03 16:30 | CARD ---
APPROVED REPORT EKG Measurement Heart [id number] <Conclusion> Sinus tachycardia Left axis deviation Inferior infarct, age undetermined Anteroseptal infarct, age undetermined Abnormal ECG
== END 2017-02-03 07:30 | disposition home or self-care (01) ==
LOC: ED 19:56 → EROBSV 22:44
PROVIDERS: ADMIT Emergency Medicine; ATTEND Emergency Medicine
DX: F10.129 Alcohol abuse with intoxication, unspecified (principal); Y90.8 Blood alcohol level of 240 mg/100 ml or more
CPT/HCPCS: 80053; 80320; 82550; 83615; 83690; 84484; 85027; 93005; 96372; 96374; 96375; 99285; G0378; J1885; J2405; J3411; J3486; J7070

== ENCOUNTER 2017-02-19 10:49 | Emergency (ER) | payer MEDICAID ==
[2017-02-19 10:50] VITALS: BMI 23.0
[2017-02-19 11:15] VITALS: BP 121/80; PULSE 95; RESP 18; TEMP 98; O2SAT 98
--- NOTE | 2017-02-19 11:21 | ED PDOC ---
Arrival/HPI - General Chief Complaint: Upper Extremity Problem/Injury Time Seen by Provider: 02/19/17 10:51 Historian: Patient, EMS - History of Present Illness Time/Duration: 1 hour Symptom Onset: Sudden Symptom Course: Unchanged Severity Level: Mild Associated Symptoms (Text): 02/19/17 11:19 Mechanical fall injuring left shoulder. No head trauma. Patient is well-known to the emergency Department staff. Frequently seen for alcohol intoxication. Past Medical History - Infectious Disease Hx of Infectious Diseases: C.diff (Antigen +, toxin -) - Reproductive Currently : No - Cardiac Hx Cardiac Disorders: No - Pulmonary Hx Respiratory Disorders: No - Neurological Hx Neurological Disorder: No - HEENT Hx HEENT Disorder: Yes (wears glasses) - Renal Hx Renal Disorder: No - Endocrine/Metabolic Hx Endocrine Disorders: No - Hematological/Oncological Hx Blood Disorders: No - Integumentary Hx Dermatological Disorder: No - Musculoskeletal/Rheumatological Hx Musculoskeletal Disorders: Yes Hx Falls: No Hx Unsteady Gait: Yes - Gastrointestinal Hx Gastrointestinal Disorders: Yes Hx Pancreatitis: Yes - Genitourinary/Gynecological Hx Genitourinary Disorders: No - Psychiatric Hx Psychophysiologic Disorder: Yes Hx Anxiety: Yes Hx Substance Use: No (denies) - Anesthesia Hx Anesthesia: No Hx Anesthesia Reactions: No Hx Malignant Hyperthermia: No Family/Social History - Physician Review Nursing Documentation Reviewed: Yes Family/Social History: Unknown Family HX Smoking Status: Heavy Smoker > 10 Cigarettes Daily Hx Alcohol Use: Yes Frequency of alcohol use: Daily Hx Substance Use: No (denies) Allergies/Home Meds Allergies/Adverse Reactions: Allergies No Known Allergies Allergy (Verified 02/02/17 20:01) Home Medications: Home Meds Medication Instructions Recorded Confirmed LORazepam [Ativan] 0.5 mg PO PRN PRN 02/02/17 02/02/17 chlordiazePOXIDE [Chlordiazepoxide 25 mg PO PRN PRN 02/02/17 02/02/17 HCl] Review of Systems - Physician Review All systems were reviewed & negative as marked: Yes Physical Exam Vital Signs Temp Pulse Resp BP Pulse Ox 02/19/17 11:14 98.0 F 95 H 18 121/80 98 Temperature: Afebrile Blood Pressure: Normal Pulse: Regular Respiratory Rate: Normal Appearance: Positive for: Well-Appearing, Non-Toxic, Comfortable Pain Distress: None Mental Status: Positive for: Alert and Oriented X 3 - Systems Exam Head: Present: Atraumatic, Normocephalic Neck: Present: Normal Range of Motion Respiratory/Chest: Present: Clear to Auscultation, Good Air Exchange. No: Respiratory Distress, Accessory Muscle Use Cardiovascular: Present: Regular Rate and Rhythm, Normal S1, S2. No: Murmurs Upper Extremity: Present: Normal Inspection, Normal ROM, NORMAL PULSES, Tenderness, Neurovascularly Intact, Other. No: Edema, Swelling, Erythema, Deformity Lower Extremity: Present: Normal Inspection. No: Edema Neurological: Present: GCS=15, CN II-XII Intact, Speech Normal, Motor Func Grossly Intact Skin: Present: Warm, Dry, Normal Color. No: Rashes Medical Decision Making ED Course and Treatment: 02/19/17 11:30 Patient is wandering about the department. He went outside on his own to smoke a cigarette, and we had to go outside to bring him back into the department. - RAD Interpretation Radiology Orders: 02/19/17 11:11 SHOULDER LEFT [RAD] Stat Shoulder 3 view shows no fracture or dislocation Sleeve Separator: ED Physician - Medication Orders Current Medication Orders: Discontinued Medications Chlordiazepoxide (Librium) 25 mg PO STAT STA PRN Reason: Protocol Stop: 02/19/17 11:53 Last Admin: 02/19/17 12:03 Dose: 25 mg Disposition/Present on Arrival - Present on Arrival Any Indicators Present on Arrival: No History of DVT/PE: No History of Uncontrolled Diabetes: No Urinary Catheter: No History of Decub. Ulcer: No History Surgical Site Infection Following: None - Disposition Have Diagnosis and Disposition been Completed?: Yes Diagnosis: Alcohol intoxication, Contusion of shoulder, left Disposition: HOME/ ROUTINE Disposition Time: 11:48 Patient Plan: Discharge Condition: GOOD Discharge Instructions (ExitCare): Contusion in Adults (ED) Referrals: Loren Butler, [Primary Care Provider] - Follow up with primary
--- NOTE | 2017-02-19 12:05 | RAD ---
PROCEDURE: Radiographs of the Left Shoulder HISTORY: trauma COMPARISON: Chest x-ray performed 01/05/17 FINDINGS: BONES: No acute displaced fracture. The distal clavicle and underlying ribs appear intact. JOINTS: No acute dislocation. SOFT TISSUES: Soft tissues appear unremarkable. No evidence of radiopaque foreign body. 5 mm left upper lobe calcified granuloma versus osseous sclerotic focus. IMPRESSION: No acute displaced fracture or dislocation evident. If symptoms persist or if there is continued clinical concern, x-ray follow-up in 7-10 days should be considered. 5 mm left upper lobe calcified granuloma versus osseous sclerotic focus, possibly bone island.
== END 2017-02-19 12:12 | disposition home or self-care (01) ==
LOC: ED 10:49
DX: S40.012A Contusion of left shoulder, initial encounter (principal); W19.XXXA Unspecified fall, initial encounter; Y93.89 Activity, other specified; Y92.89 Other specified places as the place of occurrence of the external cause; F10.129 Alcohol abuse with intoxication, unspecified; Y90.9 Presence of alcohol in blood, level not specified

== ENCOUNTER 2017-02-19 14:06 | Emergency (ER) | payer MEDICAID ==
[2017-02-19 14:07] VITALS: BMI 23.0
[2017-02-19 14:33] VITALS: TEMP 97.9
--- NOTE | 2017-02-19 14:36 | ED PDOC ---
Arrival/HPI - General Chief Complaint: Psychiatric Evaluation Time Seen by Provider: 02/19/17 14:08 Historian: Patient, EMS - History of Present Illness Time/Duration: Prior to Arrival Symptom Onset: Gradual Symptom Course: Unchanged Associated Symptoms (Text): 02/19/17 14:35 Patient was seen this morning following a fall with shoulder injury. He is well- known to the emergency department staff. He presents to the emergency department via ambulance complaining that he needs help with his drinking. He was offered crisis counselor and accepts. Past Medical History - Infectious Disease Hx of Infectious Diseases: None - Reproductive Currently : No - Cardiac Hx Cardiac Disorders: No - Pulmonary Hx Respiratory Disorders: No - Neurological Hx Neurological Disorder: No - HEENT Hx HEENT Disorder: Yes (wears glasses) - Renal Hx Renal Disorder: No - Endocrine/Metabolic Hx Endocrine Disorders: No - Hematological/Oncological Hx Blood Disorders: No - Integumentary Hx Dermatological Disorder: No - Musculoskeletal/Rheumatological Hx Musculoskeletal Disorders: Yes Hx Unsteady Gait: Yes - Gastrointestinal Hx Gastrointestinal Disorders: Yes Hx Pancreatitis: Yes - Genitourinary/Gynecological Hx Genitourinary Disorders: No - Psychiatric Hx Psychophysiologic Disorder: Yes Hx Anxiety: Yes Hx Substance Use: No (denies) - Anesthesia Hx Anesthesia: No Hx Anesthesia Reactions: No Hx Malignant Hyperthermia: No Family/Social History - Physician Review Nursing Documentation Reviewed: Yes Family/Social History: Unknown Family HX Smoking Status: Heavy Smoker > 10 Cigarettes Daily Hx Alcohol Use: Yes Frequency of alcohol use: Daily Hx Substance Use: No (denies) Allergies/Home Meds Allergies/Adverse Reactions: Allergies No Known Allergies Allergy (Verified 02/02/17 20:01) Home Medications: Home Meds Medication Instructions Recorded Confirmed LORazepam [Ativan] 0.5 mg PO PRN PRN 02/02/17 02/02/17 [id number] [Chlordiazepoxide 25 mg PO PRN PRN 02/02/17 02/02/17 HCl] Review of Systems - Physician Review All systems were reviewed & negative as marked: Yes Physical Exam Vital Signs Temp Pulse Resp BP Pulse Ox 02/19/17 14:07 97.9 F 99 H 18 135/102 H 95 Temperature: Afebrile Blood Pressure: Normal Pulse: Regular Respiratory Rate: Normal Appearance: Positive for: Well-Appearing, Non-Toxic, Comfortable Pain Distress: None Mental Status: Positive for: Alert and Oriented X 3, other (Smells of alcohol) - Systems Exam Head: Present: Atraumatic, Normocephalic Pupils: Present: PERRL Extroacular Muscles: Present: EOMI Conjunctiva: Present: Normal Mouth: Present: Moist Mucous Membranes Pharnyx: No: ERYTHEMA, EXUDATE, TONSILS ENLARGED Neck: Present: Normal Range of Motion Respiratory/Chest: Present: Clear to Auscultation, Good Air Exchange, Decreased Breath Sounds. No: Respiratory Distress, Accessory Muscle Use Cardiovascular: Present: Regular Rate and Rhythm, Normal S1, S2. No: Murmurs Abdomen: Present: Normal Bowel Sounds. No: Tenderness, Distention, Peritoneal Signs, Rebound, Guarding Upper Extremity: Present: Normal Inspection. No: Cyanosis, Edema Lower Extremity: Present: Normal Inspection. No: Edema Neurological: Present: GCS=15, CN II-XII Intact, Speech Normal, Motor Func Grossly Intact Skin: Present: Warm, Dry, Normal Color. No: Rashes Psychiatric: Present: Alert, Oriented x 3, Normal Insight, Normal Concentration , Depressed Mood, Intoxicated Medical Decision Making ED Course and Treatment: 02/19/17 17:08 Crisis is here evaluating the patient. 02/19/17 17:13 EKG shows normal sinus rhythm rate approximately 90 with poor R-wave progression and no acute ST or T-wave changes 02/19/17 18:38 Patient has become agitated and required 2. restraints for his own protection and the protection of the staff. He remains intoxicated. Crisis has evaluated him and is awaiting final disposition when he is clinically sober. Care of this patient will be endorsed to the night emergency department physician , waiting for final disposition. - Lab Interpretations Lab Results: 02/19/17 14:43 02/19/17 14:43 Lab Results 02/19/17 15:04: Urine Opiates Screen Negative, Urine Methadone Screen Negative, Ur Barbiturates Screen Negative, Ur Phencyclidine Scrn Negative, Ur Amphetamines Screen Negative, U Benzodiazepines Scrn Positive H, U Oth Cocaine Metabols Negative, U Cannabinoids Screen Negative 02/19/17 15:04: Urine Color Light yellow, Urine Appearance Clear, Urine pH 6.0, Ur Specific [place] 1.010, Urine Protein Negative, Urine Glucose (UA) Negative, Urine Ketones Negative, Urine Blood Negative, Urine Nitrate Negative, Urine Bilirubin Negative, Urine Urobilinogen 0.2, Ur Leukocyte Esterase Negative 02/19/17 14:43: Alcohol, Quantitative 399 H* 02/19/17 14:43: Salicylates < 1 L, Acetaminophen < 10.0 L 02/19/17 14:43: Sodium 152 H, Potassium 3.0 L, Chloride 110 H, Carbon Dioxide 30 , Anion Gap 15, BUN 8, Creatinine 0.6, Est GFR ( Amer) > 60, Est GFR (Non -Af Amer) > 60, Random Glucose 96, Calcium 8.7, Total Bilirubin 0.3, AST 127 H, ALT 104 H, Alkaline Phosphatase 78, Total Protein 7.6, Albumin 4.2, Globulin 3.3 , Albumin/Globulin Ratio 1.3 02/19/17 14:43: WBC 7.5, RBC 4.15, Hgb 14.3, Hct 41.0 L, MCV 98.8, MCH 34.5, MCHC 34.9, RDW 13.1, Plt Count 240, MPV 8.9, Gran % 45.4 L, Lymph % (Auto) 35.7 H, [place] % (Auto) 12.6 H, Eos % (Auto) 4.7, Baso % (Auto) 1.6, Gran # 3.40, Lymph # 2.7, [place] # 0.9 H, Eos # 0.4, Baso # 0.12 - RAD Interpretation Radiology Orders: 02/19/17 14:32 CHEST PORTABLE [RAD] Stat Chest 1 view shows no infiltrate or effusion with cardiomegaly [employer]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 Ulcer: No History Surgical Site Infection Following: None - Disposition Have Diagnosis and Disposition been Completed?: Yes Diagnosis: Alcohol intoxication, Depression Disposition Time: 18:41 Patient Problems: Current Active Problems Problem Status Onset Alcohol intoxication Acute Depression Acute Condition: GOOD Referrals: [facility] Bryon Butler, [Primary Care Provider] - Follow up with primary
[2017-02-19 14:49] LABS: ADD MANUAL DIFF? NO
[2017-02-19 15:03] LABS: BASO # 0.12 K/mm3 (0.0-2.0); BASO % 1.6 % (0.0-3.0); EOS # 0.4 (0.0-0.7); EOS % 4.7 % (1.5-5.0); GRAN % 45.4 % (50.0-68.0); LYMPH # 2.7 (1.2-3.4); LYMPH % 35.7 % (22.0-35.0); MEAN CELL VOLUME 98.8 fL (80.0-105.0); MEAN CORPUSCULAR HEMOGLOBIN 34.5 pg (25.0-35.0); MEAN CORPUSCULAR HGB CONC 34.9 g/dl (31.0-37.0); MEAN PLATELET VOLUME 8.9 fl (7.0-11.0); MONO # 0.9 (0.1-0.6); MONO % 12.6 % (1.0-6.0); PLATELET COUNT 240 10^3/uL (120.0-450.0); RED CELL DISTRIBUTION WIDTH 13.1 % (11.5-14.5); WHITE BLOOD COUNT 7.5 10^3/ul (4.5-11.0)
[2017-02-19 15:04] LABS: ALB/GLOB RATIO 1.3 (1.1-1.8); ALKALINE PHOSPHATASE 78 U/L (38-133); ALT/SGPT 104 U/L (7-56); AST/SGOT 127 U/L (15-59); BILIRUBIN,TOTAL 0.3 mg/dL (0.2-1.3); BLOOD UREA NITROGEN 8 mg/dL (7-21); CALCIUM 8.7 mg/dL (8.4-10.5); CARBON DIOXIDE 30 mmol/L (21-33); CHLORIDE 110 mmol/L (98-107); GFR AFRICAN-AMERICAN > 60; GLUCOSE,RANDOM 96 mg/dL (70-110); SODIUM 152 mmol/L (132-148); TOTAL PROTEIN 7.6 g/dL (5.8-8.3)
--- NOTE | 2017-02-19 15:16 | RAD ---
HISTORY: PES COMPARISON: 01/05/2017 FINDINGS: LUNGS: The lungs are clear. PLEURA: No significant pleural effusion identified, no pneumothorax apparent. CARDIOVASCULAR: Normal. OSSEOUS STRUCTURES: No significant abnormalities. VISUALIZED UPPER ABDOMEN: Normal. OTHER FINDINGS: None. IMPRESSION: No active pulmonary disease.
[2017-02-19] MEDS ORDERED: Potassium Chloride 40 mEq/30 ml LIQ UD PO STA (15:20)
[2017-02-19 16:10] LABS: URINE BILIRUBIN NEGATIVE (NEGATIVE); URINE BLOOD NEGATIVE (NEGATIVE); URINE GLUCOSE (UA) NEGATIVE (NEGATIVE); URINE KETONE NEGATIVE (NEGATIVE); URINE LEUKOCYTE ESTERASE NEGATIVE Leu/uL (NEGATIVE); URINE PROTEIN NEGATIVE mg/dL (<30 mg/dL); URINE UROBILINOGEN 0.2 E.U./dL (<1 E.U./dL)
[2017-02-19 16:22] LABS: URINE APPEARANCE CLEAR (CLEAR); URINE COLOR LIGHT YELLOW (YELLOW)
[2017-02-19 20:13] VITALS: O2SAT 98
--- NOTE | 2017-02-19 23:27 | ED PDOC ---
Physical Exam Vital Signs Temp Pulse Resp BP Pulse Ox 02/19/17 20:13 95 H 16 148/91 H 98 02/19/17 14:07 97.9 F 99 H 18 135/102 H 95 Medical Decision Making ED Course and Treatment: Patient signed out to me at change of shift pending sobriety prior to PES evaluation. Patient was observed in ER, alert, awake, steady on feet, clinically sober. Was evaluated by PES and cleared for discharge. - Lab Interpretations Lab Results: 02/19/17 14:43 02/19/17 14:43 Lab Results 02/19/17 15:04: Urine Opiates Screen Negative, Urine Methadone Screen Negative, Ur Barbiturates Screen Negative, Ur Phencyclidine Scrn Negative, Ur Amphetamines Screen Negative, U Benzodiazepines Scrn Positive H, U Oth Cocaine Metabols Negative, U Cannabinoids Screen Negative 02/19/17 15:04: Urine Color Light yellow, Urine Appearance Clear, Urine pH 6.0, Ur Specific [place] 1.010, Urine Protein Negative, Urine Glucose (UA) Negative, Urine Ketones Negative, Urine Blood Negative, Urine Nitrate Negative, Urine Bilirubin Negative, Urine Urobilinogen 0.2, Ur Leukocyte Esterase Negative 02/19/17 14:43: Alcohol, Quantitative 399 H* 02/19/17 14:43: Salicylates < 1 L, Acetaminophen < 10.0 L 02/19/17 14:43: Sodium 152 H, Potassium 3.0 L, Chloride 110 H, Carbon Dioxide 30 , Anion Gap 15, BUN 8, Creatinine 0.6, Est GFR ( Amer) > 60, Est GFR (Non -Af Amer) > 60, Random Glucose 96, Calcium 8.7, Total Bilirubin 0.3, AST 127 H, ALT 104 H, Alkaline Phosphatase 78, Total Protein 7.6, Albumin 4.2, Globulin 3.3 , Albumin/Globulin Ratio 1.3 02/19/17 14:43: WBC 7.5, RBC 4.15, Hgb 14.3, Hct 41.0 L, MCV 98.8, MCH 34.5, MCHC 34.9, RDW 13.1, Plt Count 240, MPV 8.9, Gran % 45.4 L, Lymph % (Auto) 35.7 H, [place] % (Auto) 12.6 H, Eos % (Auto) 4.7, Baso % (Auto) 1.6, Gran # 3.40, Lymph # 2.7, [place] # 0.9 H, Eos # 0.4, Baso # 0.12 - RAD Interpretation Radiology Orders: 02/19/17 14:32 CHEST PORTABLE [RAD] Stat - Medication Orders Current Medication Orders: Discontinued Medications Potassium Chloride (Potassium Chloride Oral Soln) 40 meq PO STAT STA Stop: 02/19/17 15:21 Last Admin: 02/19/17 15:36 Dose: 40 meq Disposition/Present on Arrival - Present on Arrival Any Indicators Present on Arrival: No History of DVT/PE: No History of Uncontrolled Diabetes: No Urinary Catheter: No History of Decub. Ulcer: No History Surgical Site Infection Following: None - Disposition Have Diagnosis and Disposition been Completed?: Yes Diagnosis: Alcohol intoxication, Depression Disposition: HOME/ ROUTINE Disposition Time: 23:27 Patient Plan: Discharge Patient Problems: Current Active Problems Problem Status Onset Alcohol intoxication Acute Depression Acute Condition: STABLE [facility] - Follow up with primary
[2017-02-19 23:36] VITALS: BP 136/88; PULSE 87; RESP 18
--- NOTE | 2017-02-20 15:53 | CARD ---
APPROVED REPORT EKG Measurement Heart [id number] <Conclusion> Normal sinus rhythm Normal ECG
== END 2017-02-19 23:37 | disposition home or self-care (01) ==
LOC: ED 14:06
DX: F32.9 Major depressive disorder, single episode, unspecified (principal); F10.129 Alcohol abuse with intoxication, unspecified; Y90.8 Blood alcohol level of 240 mg/100 ml or more
CPT/HCPCS: 71010; 80053; 80320; 80324; 80329; 80345; 80346; 80349; 80353; 80358; 80361; 81003; 83992; 85025; 93005; 99285; J3480